=== PATIENT | female | born 1960 | race Caucasian/White ===

== ENCOUNTER 2019-05-28 06:00 | Outpatient (RCR) | payer MEDICARE, MEDICAID, SELFPAY | END 2019-06-27 00:01 | LOC: SPT 06:00 | PROVIDERS: Family Provider Family Medicine; Visit Provider Orthopaedic Surgery | DX: M75.02 Adhesive capsulitis of left shoulder (principal); M25.512 Pain in left shoulder | CPT/HCPCS: 97110 ×2 ==

== ENCOUNTER 2019-06-28 06:00 | Outpatient (RCR) | payer MEDICARE, MEDICAID, SELFPAY | END 2019-07-28 23:59 | disposition home or self-care (01) | LOC: SPT 06:00 | PROVIDERS: Family Provider Family Medicine; PCP Family Medicine; Visit Provider Orthopaedic Surgery | DX: M75.02 Adhesive capsulitis of left shoulder (principal) ==

== ENCOUNTER 2019-07-26 14:41 | Outpatient (CLI) | payer MEDICARE, MEDICAID, SELFPAY ==
--- NOTE | 2019-07-26 | USCV_ITS ---
Jasmin Villalobos Age: 59 Gender: F : 1960 Exam Date: 07/26/2019 15:01 Ordering Phys: Darell Orourke MD Technologist: Christel Bacon [place] [facility] [place]: SY[place] BP: 121 / 71 HR: 81 Rhythm: Other Technical Quality: Adequate MEASUREMENTS (Male / Female) Normal Values 2D ECHO LV Diastolic Diameter PLAX 5.1 cm 4.2 - 5.9 / 3.9 - 5.3 cm LV Systolic Diameter PLAX 3.2 cm LV Chamber Size 4.9 cm IVS Diastolic Thickness 1.1 cm 0.6 - 1.0 / 0.6 - 0.9 cm IVS Systolic Thickness 1.2 cm LVPW Diastolic Thickness 0.9 cm 0.6 - 1.0 / 0.6 - 0.9 cm LVPW Systolic Thickness 1.2 cm RV Chamber Size 3.0 cm LVOT Diameter 2.0 cm LV Ejection Fraction 2D Teich 65.7 % LV Ejection Fraction MOD 2C 42.7 % LV Ejection Fraction 2C AL 43.2 % LA Diameter 3.6 cm LA Width 3.1 cm LA Height 4.7 cm RA Width 2.2 cm RA Height 3.6 cm Aorta at Sinotubular Diameter 3.1 cm M-MODE LV Diastolic Diameter MM 5.5 cm 4.2 - 5.9 / 3.9 - 5.3 cm LV Systolic Diameter MM 4.1 cm LV Ejection Fraction MM Teich 49.1 % IVS Diastolic Thickness MM 1.2 cm 0.6 - 1.0 / 0.6 - 0.9 cm IVS Systolic Thickness MM 1.3 cm LVPW Diastolic Thickness MM 1.0 cm 0.6 - 1.0 / 0.6 - 0.9 cm LVPW Systolic Thickness MM 1.5 cm RV Diastolic Diameter MM 1.4 cm Aortic Annulus Diameter 2.8 cm LA Ao Ratio MM 1.3 MV E Point Septal Separation 0.9 cm DOPPLER AV Peak Velocity 146.0 cm/s LVOT Peak Velocity 102.0 cm/s AV Area Cont Eq vti 2.1 cm squared AV Area Cont Eq pk 2.2 cm squared MV Area PHT 2.6 cm squared Mitral E to A Ratio 0.6 MV E' Velocity 5.0 cm/s Mitral E to MV E' Ratio 10.2 Mitral E to LV E' Lateral Ratio 10.8 Mitral E to LV E' Septal Ratio 9.7 TV Peak E Velocity 54.0 cm/s Right Atrial Pressure 3.0 mmHg PV Peak Velocity 84.0 cm/s FINDINGS Left Ventricle Normal left ventricular size, systolic function and wall thickness, with no regional wall motion abnormalities.left ventricular ejection fraction is estimated at 60 %. Normal diastolic filling pattern. Right Ventricle The right ventricle is normal in size and function. RVSP could not be calculated due to incomplete tricuspid regurgitation velocity profile. Right Atrium The right atrium is normal in size. Left Atrium The left atrium is normal in size. Mitral Valve Structurally normal mitral valve without significant stenosis or prolapse. There is no mitral regurgitation. Aortic Valve Structurally normal aortic valve without significant sclerosis or stenosis. There is no aortic regurgitation. Tricuspid Valve Mild tricuspid valve regurgitation. Pulmonic Valve Structurally normal pulmonic valve without significant stenosis. There is no pulmonic regurgitation. Pericardium Normal pericardium without effusion. Aorta Normal ascending aorta dimension. CONCLUSIONS 1-Normal left ventricular size, systolic function and wall thickness, with no regional wall motion abnormalities.left ventricular ejection fraction is estimated at 60 %. Normal diastolic filling pattern. 2-The right ventricle is normal in size and function. RVSP could not be calculated due to incomplete tricuspid regurgitation velocity profile. 3-Mild tricuspid valve regurgitation. 4-There is no pericardial effusion. 5-There are no prior echocardiogram studies to compare. Vale Herr MD (Electronically Signed) Final Date: 26 July 2019 17:43 S
== END 2019-07-26 14:42 | disposition home or self-care (01) ==
PROVIDERS: Family Provider Family Medicine; PCP Family Medicine; Visit Provider Family Medicine
DX: I07.1 Rheumatic tricuspid insufficiency (principal); R55 Syncope and collapse
CPT/HCPCS: 93306

== ENCOUNTER → 2019-08-02 15:05 | Outpatient (BNVA) | payer MEDICARE, MEDICAID, SELFPAY | PROVIDERS: Family Provider Family Medicine; PCP Family Medicine; Visit Provider Nurse Practitioner | DX: F33.0 Major depressive disorder, recurrent, mild (principal); F43.12 Post-traumatic stress disorder, chronic; F32.9 Major depressive disorder, single episode, unspecified; F17.218 Nicotine dependence, cigarettes, with other nicotine-induced disorders; G47.33 Obstructive sleep apnea (adult) (pediatric) | CPT/HCPCS: 99214 ==

== ENCOUNTER → 2019-09-25 08:13 | Outpatient (BNVA) | payer MEDICARE, MEDICAID, SELFPAY | PROVIDERS: Family Provider Family Medicine; PCP Family Medicine; Visit Provider Nurse Practitioner | DX: G47.33 Obstructive sleep apnea (adult) (pediatric) (principal); F17.218 Nicotine dependence, cigarettes, with other nicotine-induced disorders; F43.12 Post-traumatic stress disorder, chronic; F33.0 Major depressive disorder, recurrent, mild | CPT/HCPCS: 99214 ==

== ENCOUNTER 2019-10-08 17:44 | Emergency (ER) | payer MEDICARE, MEDICAID, SELFPAY ==
[2019-10-08 17:48] VITALS: BP 158/115; PULSE 68; RESP 17; TEMP 36.8; O2SAT 93; BMI 41.1
--- NOTE | 2019-10-08 17:58 | PC.NURSE ---
Charge nurse notified of positive SI screening. I will remain with the patient in triage until she is in a room.
--- NOTE | 2019-10-08 18:22 | XR_ITS ---
WS: [id number] RIBS RIGHT WITH CHEST TECHNIQUE: 3 views of the right ribs with PA chest CLINICAL INFORMATION: fall COMPARISON: None. FINDINGS: Normal cardiac silhouette. Tortuous thoracic aorta. Chronic emphysematous changes. No acute pulmonary infiltrates. Osteopenia. Right ribs appear normal. No definite visualized right rib fractures. Crystal cystectomy clips. XR/XR ribs RT mn 3V w [id number] IMPRESSION: 1. No visualized right rib fractures. 2. Lungs are well aerated. No acute pulmonary infiltrates.
--- NOTE | 2019-10-08 18:22 | XR_ITS ---
WS: [id number] FOOT RIGHT TECHNIQUE: 3 views of the right foot CLINICAL INFORMATION: fall COMPARISON: None. FINDINGS: Osteopenia. Normal metatarsals. Normal TMT joint. Prior postoperative changes plate and screw fixatio n across the distal fibula and lateral malleolus. Screw fixation across the medial malleolus. IP join t narrowing. Plantar calcaneal spurring. Soft tissue edema midfoot and forefoot. XR/XR foot RT min 3V* [id number] IMPRESSION: 1. Osteopenia with midfoot and forefoot soft tissue edema. No visualized acute fractures. 2. Postoperative changes plate and screw fixation distal fibula and lateral ma lleolus. Screw fixation across the medial malleolus.
--- NOTE | 2019-10-08 18:22 | CTR_ITS ---
PROCEDURE INFORMATION: Exam: CT Head Without Contrast Exam date and time: 10/08/2019 8:58 PM Age: 59 years old Clinical indication: Alteration of consciousness; Other: Fall w/ loc; Additional info: Fall, loss of consciousness TECHNIQUE: Imaging protocol: Computed tomography of the head without contrast. Sagittal and coronal reformatted images were created and reviewed. Total DLP: 802.2 mGy-cm Radiation optimization: All CT scans at this facility use at least one of these dose optimization techniques: automated exposure control; mA and/or kV adjustment per patient size (includes targeted exams where dose is matched to clinical indication); or iterative reconstruction. COMPARISON: CT head wo con* [id number] 08/07/2016 10:02 PM FINDINGS: Brain: No acute intracranial hemorrhage. No acute infarct. No intra-axial or extra-axial masses. Palma-white matter differentiation is preserved. No cerebral edema. No extra-axial fluid collections. No midline shift. No evidence for Chiari 1 malformation. Stable mild to moderate atrophy of the right and left frontal lobes. Midline shift: No midline shift. Ventricles: No hydrocephalus. Bones/joints: Mild right nasal septal deviation. Sinuses: Visualized paranasal sinuses are clear. Mastoid air cells: Unremarkable as visualized. Orbits: Globes and lenses, extraocular muscles, and optic nerves are intact bilaterally. No acute intraorbital abnormality. Soft tissues: The extracranial soft tissues are unremarkable. Nasal cavity: Stable nerissa bullosa in the visualized right and left middle turbinates. CT/CT head wo con* [id number] IMPRESSION: 1. No acute abnormality of the brain. 2. Stable mild to moderate atrophy of the right and left frontal lobes. 3. Incidental/nonacute findings are listed in the report. Radiation Dose CTDIVOL = (mGy): DLP = 802.2 (mGy-cm)
[2019-10-08 18:45] LABS: Basophils % 0.6 %; Eosinophils # 0.1 10^3/uL (0.0-0.8); Eosinophils % 2.9 %; Hematocrit 41.1 % (37.0-47.0); Hemoglobin 12.8 g/dL (11.5-15.3); Lymphocytes # 1.3 10^3/uL (0.8-4.8); Mean Corpuscular HGB Conc 31.1 g/dL (30.0-36.0); Mean Corpuscular Volume 86.7 fL (81-99); Mean Platelet Volume 9.9 fL (7.4-10.4); Monocytes # 0.5 10^3/uL (0.2-0.9); Monocytes % 13.2 %; Neutrophils # 1.6 10^3/uL (1.8-7.7); Nucleated Red Blood Cells % 0 %; Platelet Count 173 10^3/cmm (130-400); Red Blood Count 4.74 10^6/uL (4.1-5.3); Red Cell Distribution Width 16.9 % (12.1-15.1); White Blood Count 3.5 10^3/uL (4.0-10.0)
[2019-10-08 19:04] LABS: Alanine Aminotransferase 16 U/L (0-33); Albumin Level 3.9 g/dL (3.5-5.2); Alkaline Phosphatase 48 IU/L (35-105); Anion Gap 15.3 (5-19); Aspartate Amino Transferase 33 U/L (0-32); Blood Urea Nitrogen 11 mg/dL (8-23); Calcium 9.5 mg/dL (8.5-10.5); Carbon Dioxide 29 mmol/L (22-29); Chloride 96 mmol/L (98-107); Globulin 3.1 g/dL (1.3-4.6); Glomerular Filtration Rate 63.9 mL/min (90-130); Glucose 110 mg/dL (65-115); Osmolality Calculated 279 mOsm/kg (285-295); Potassium 4.3 mmol/L (3.5-5.1); Sodium 136 mmol/L (136-145); Total Bilirubin 0.3 mg/dL (0.15-1.2)
[2019-10-08 19:19] VITALS: BP 139/88; PULSE 58; RESP 18; O2SAT 93
[2019-10-08 20:40] VITALS: BP 118/57; PULSE 75; RESP 16; O2SAT 97
--- NOTE | 2019-10-08 21:47 | ED_ITS ---
HPI - Fall General: Chief Complaint: Fall Stated Complaint: fall Time Seen by Provider: 10/08/19 18:10 Source: patient and EMS Mode of arrival: EMS Limitations: no limitations History of Present Illness: HPI Narrative: 59-year-old female patient presents to the emergency department with complaints of fall. She fell 2 days ago, hitting her head and describes a brief period of loss of consciousness. Patient is not on anticoagulation. The patient also endorses the fact that she has been falling fairly frequently for the last year, she states that she has fallen at least 20 times in the last year. Her primary care provider is working her up to discover the cause of her symptoms. So far they have been unsuccessful. The patient also says that she has a history of depression and has been feeling more depressed since the mandatory stay at home order that is in place due to the coronavirus pandemic. It has caused her to feel more depressed, however she denies suicidal ideation, denies homicidal ideation. I asked her repeatedly and she denies any suicidal ideation. She had told the nurse earlier during triage that she was suicidal but she explained to me that she only has thoughts that she would be better off but other than being stuck alone. She has no plans to do it and has no intentions to commit suicide. Her falls are also causing her to be a little more depressed. She denies chest pain, dizziness, shortness of breath. She has no prodrome before the falls. She is unable to tell me why she falls. She has pain on the right side of her head, right side of her body and right foot. complaint: fall Onset (ago): day(s) (2) Fall from: standing Fall witnessed: no Place fall occurred: home Loss of consciousness: Yes Length of LOC: minutes(s) Prolonged down time: no Symptoms prior to fall: none Context: tripped/slipped Associated symptoms-after fall: Reports chest pain; Denies abdominal pain, headache(s) or neck pain Review of Systems General: Reports: 10 or more systems reviewed and unremarkable except in HPI and below Const: Denies: fever, chills or body aches Eyes: Denies: change in vision or blurry vision ENMT: Denies: throat pain, enlarged tonsils, painful swallowing, hoarseness, mouth pain or swelling of lips/tongue Card: Reports: chest pain; Denies: palpitations, irregular heart rhythm, edema or swelling of feet/ankles Resp: Denies: shortness of breath, productive cough or non-productive cough GI: Denies: abdominal pain, nausea or vomiting : Denies: flank pain, difficulty urinating, painful urination, urinary frequency, urinary urgency or urinary hesitancy Musc: Reports: extremity pain and joint pain; Denies: neck pain, back pain, extremity swelling or limited range of motion Skin/Breast: Denies: rash, itching or redness Neuro: Denies: headache, numbness in extremities or weakness in extremities Endo: Denies: excessive urination, excessive thirst or tired all the time PFSH ED PFSH: Medical History (Updated 10/08/19 @ 21:49 by Jovanny Sesay MD, [facility] [place] Major depressive disorder, recurrent, mild Major depressive disorder, single episode, unspecified Nicotine dependence, cigarettes, with other nicotine-induced disorders Obstructive sleep apnea (adult) (pediatric) Post-traumatic stress disorder, chronic Social History Smoking and tobacco status: current every day smoker Physical Exam Const: COMMON NORMALS: no apparent distress, average body habitus, oriented x3, no limitations, healthy appearing, alert and well nourished HENMT: COMMON NORMALS: normocephalic, head/scalp atraumatic and moist oral mucous membranes HEAD & SCALP: normocephalic, atraumatic, scalp tenderness and other (Tenderness in the right parietal region) Eye: COMMON NORMALS: PERRL, EOMs intact bilaterally, conjunctivae normal and no scleral icterus CONJUNCTIVA: Yes conjunctivae normal PUPIL: Yes PERRL Neck/C-Spine: COMMON NORMALS: full ROM, supple, no meningeal signs, no JVD and no carotid bruits Chest: COMMONS NORMALS: inspection of chest normal CHEST: Yes localized rib tenderness with anteroposterior compression (right side) Resp: COMMON NORMALS: normal respiratory effort, no retractions, no use of accessory muscles, clear to auscultation bilaterally and percussion normal AUSCULTATION: clear to auscultation bilaterally PERCUSSION: percussion normal Cardio: COMMON NORMALS: no JVD, regular rate, regular rhythm, S1 normal heart sound, S2 normal heart sound, no gallops, no clicks, no murmurs, no rub and peripheral pulses 2+ throughout RATE: regular rate RHYTHM: regular rhythm HEART SOUNDS: S1 normal and S2 normal PERIPHERAL PULSES: pulses 2+ throughout GI: COMMON NORMALS: normal to inspection, nondistended, normoactive bowel sounds, soft to palpation, non-tender, no hepatosplenomegaly, no masses and no bruits PALPATION: Yes soft and Yes no hepatosplenomegaly : COMMON NORMALS: Yes no CVA tenderness BLADDER/KIDNEY EXAM: Yes no CVA tenderness Back/Pelvis: COMMON NORMALS: no CVA tenderness Extremity: COMMON NORMALS: normal to inspection, full ROM, normal capillary refill, no calf tenderness and no pedal edema RIGHT LOWER EXTREMITY: Yes foot & digits (bruising of the right 3rd and 4th toe with tenderness.) Neuro: COMMON NORMALS: oriented x3 SENSORIUM/ORIENTATION: Yes alert MENINGEAL SIGNS: Yes no meningeal signs Skin: COMMON NORMALS: no rashes or lesions noted, no wounds, skin turgor normal, no jaundice, no petechiae and no mottling GENERAL SKIN EXAM: no rashes or lesions noted and turgor normal Course Vital Signs: Vital signs: Vital Signs Temperature 98.3 F 10/08/19 17:48 Pulse Rate 77 10/08/19 21:52 Respiratory Rate 12 10/08/19 21:52 Blood Pressure 168/88 10/08/19 21:52 Pulse Oximetry 95 10/08/19 21:52 MDM - Fall MDM Narrative: Medical decision making narrative: 59-year-old female patient who presents to the emergency department with a fall that happened 2 days ago. She also had loss of consciousness at the time. Evaluation in the ED was negative for acute findings. She mentioned to the triage nurse that she had thoughts of suicide, but when I spoke to her she was clear that she was not suicidal she was just very depressed at being stuck at home due to the [id number] order. The repeated falls also causing her some frustration. At this time I am not concerned that the patient is suicidal. She is discharged home with no new orders. Medical Records: Attestation: I reviewed the patient's medical records. Lab Data: Labs: Lab Results 10/08/19 10/08/19 Range/Units 18:28 18:28 WBC 3.5 L (4.0-10.0) 10^3/ uL RBC 4.74 (4.1-5.3) 10^6/u L Hgb 12.8 (11.5-15.3) g/dL Hct 41.1 (37.0-47.0) % MCV 86.7 (81-99) fL MCH 27.0 L (28.0-34.0) pg MCHC 31.1 (30.0-36.0) g/dL RDW 16.9 H (12.1-15.1) % Plt Count 173 (130-400) 10^3/c mm MPV 9.9 (7.4-10.4) fL Neut % (Auto) 46.0 % Lymph % (Auto) 37.0 % [place] % (Auto) 13.2 % Eos % (Auto) 2.9 % Baso % (Auto) 0.6 % Neut # (Auto) 1.6 L (1.8-7.7) 10^3/u L Lymph # (Auto) 1.3 (0.8-4.8) 10^3/u L [place] # (Auto) 0.5 (0.2-0.9) 10^3/u L Eos # (Auto) 0.1 (0.0-0.8) 10^3/u L Baso # (Auto) 0.0 (0.0-0.1) 10^3/u L Nucleated RBC % (a uto) 0 % Nucleated RBCs # 0.0 /100WBC Sodium 136 (136-145) mmol/L Potassium 4.3 (3.5-5.1) mmol/L Chloride 96 L (98-107) mmol/L Carbon Dioxide 29 (22-29) mmol/L Anion Gap 15.3 (5-19) BUN 11 (8-23) mg/dL Creatinine 0.9 (0.5-0.9) mg/dL GFR Calculation 63.9 L (90-130) mL/min Glucose 110 (65-115) mg/dL Calculated Osmolal ity 279 L (285-295) mOsm/k g Calcium 9.5 (8.5-10.5) mg/dL Total Bilirubin 0.3 (0.15-1.2) mg/dL AST 33 H (0-32) U/L ALT 16 (0-33) U/L Alkaline Phosphata se 48 (35-105) IU/L Total Protein 7.0 (6.6-8.7) g/dL Albumin 3.9 (3.5-5.2) g/dL Globulin 3.1 (1.3-4.6) g/dL Imaging Data^: CT Head: Radiologist's impression: [facility] [address] [place] [address] CT Scan Report Signed Patient: Jasmin Villalobos #: [id number] : 9Acct#:[id number] Age/Sex: 59 / FADM Date: 10/08/19 Loc: ERRoom/Bed: Attending Dr: Ordering Provider/Ordering MD: Jovanny Sesay MD, [facility] [place] of Service: 10/08/19 Procedure(s): CT head wo con* [id number] Accession Number(s): [id number] Report Number: [id number] PROCEDURE INFORMATION: Exam: CT Head Without Contrast Exam date and time: 10/08/2019 8:58 PM Age: 59 years old Clinical indication: Alteration of consciousness; Other: Fall w/ loc; Additional info: Fall, loss of consciousness TECHNIQUE: Imaging protocol: Computed tomography of the head without contrast. Sagittal and coronal reformatted images were created and reviewed. Total DLP: 802.2 mGy-cm Radiation optimization: All CT scans at this facility use at least one of these dose optimization techniques: automated exposure control; mA and/or kV adjustment per patient size (includes targeted exams where dose is matched to clinical indication); or iterative reconstruction. COMPARISON: CT head wo con* [id number] 08/07/2016 10:02 PM FINDINGS: Brain: No acute intracranial hemorrhage. No acute infarct. No intra-axial or extra-axial masses. Palma-white matter differentiation is preserved. No cerebral edema. No extra-axial fluid collections. No midline shift. No evidence for Chiari 1 malformation. Stable mild to moderate atrophy of the right and left frontal lobes. Midline shift: No midline shift. Ventricles: No hydrocephalus. Bones/joints: Mild right nasal septal deviation. Sinuses: Visualized paranasal sinuses are clear. Mastoid air cells: Unremarkable as visualized. Orbits: Globes and lenses, extraocular muscles, and optic nerves are intact bilaterally. No acute intraorbital abnormality. Soft tissues: The extracranial soft tissues are unremarkable. Nasal cavity: Stable nerissa bullosa in the visualized right and left middle turbinates. CT/CT head wo con* [id number] IMPRESSION: 1. No acute abnormality of the brain. 2. Stable mild to moderate atrophy of the right and left frontal lobes. 3. Incidental/nonacute findings are listed in the report. Radiation Dose CTDIVOL = (mGy): DLP = 802.2 (mGy-cm) Dictated By:Yolette Araya MD Signed By:Yolette Araya MDSigned Date/Time:10/08/192120 DD/ 18 Xray Ortho: Attestation: I personally reviewed and interpreted this imaging study as follows: My impression: X-ray right foot negative for fracture or dislocation. X-ray ribs negative for acute fracture. Discharge Plan Discharge Patient Disposition: Home, Self-Care Clinical Impression: Repeated falls, Musculoskeletal pain, Major depressive disorder, recurrent, mild Condition: Stable Prescriptions: Continued trazodone 50 mg tablet 50 mg PO .QHS PRN (Reason: sleep) Qty: 60 RF: 1 levothyroxine [Synthroid] 50 mcg tablet 50 mcg PO QAM Qty: 30 RF: 1 fluoxetine [Prozac] 20 mg capsule 20 mg PO DAILY Qty: 30 RF: 1 fluoxetine 40 mg capsule 80 mg PO DAILY Qty: 60 RF: 1 divalproex [Depakote] 500 mg tablet,delayed release (DR/EC) 500 mg PO BID Qty: 60 RF: 1 zolpidem [Ambien] 10 mg tablet 10 mg PO .QHS Qty: 30 RF: 1 Discharge Orders: Discharge Order (Routine); Ordered 10/08/19 Ordered By: Jovanny Sesay Referrals: Darell Orourke MD [Primary Care Provider] - 7-10 days Discharge Diet: Usual diet Discharge Activity: Increase activity as tolerated Patient Instructions: Fall Prevention for Older Adults (ED) Activity Restrictions/Additional Instructions: Return for any new or worsening symptoms. Take Tylenol or ibuprofen as needed for pain. Follow-up with your primary care provider within 1 week. Discharge Date/Time: 10/08/19 22:01 Coding Level of Care Code ED Medical Program Specialist for Susan Sanz
[2019-10-08 21:52] VITALS: BP 168/88; PULSE 77; RESP 12; O2SAT 95
== END 2019-10-08 22:01 | disposition home or self-care (01) ==
PROVIDERS: Emergency Provider Family Medicine; Family Provider Family Medicine; PCP Family Medicine
DX: R29.6 Repeated falls (principal); M79.18 Myalgia, other site; F33.0 Major depressive disorder, recurrent, mild; F17.200 Nicotine dependence, unspecified, uncomplicated; G47.33 Obstructive sleep apnea (adult) (pediatric); F43.12 Post-traumatic stress disorder, chronic
CPT/HCPCS: 12345; 70450; 71101; 73630; 80053; 85025; 99281; 99283

== ENCOUNTER → 2019-11-30 07:41 | Outpatient (BNVA) | payer MEDICARE, MEDICAID, SELFPAY | PROVIDERS: Family Provider Family Medicine; PCP Family Medicine; Visit Provider Nurse Practitioner | DX: F33.0 Major depressive disorder, recurrent, mild (principal); F43.12 Post-traumatic stress disorder, chronic; F17.218 Nicotine dependence, cigarettes, with other nicotine-induced disorders; G47.33 Obstructive sleep apnea (adult) (pediatric) | CPT/HCPCS: 99214 ==

== ENCOUNTER 2019-12-07 12:49 | Outpatient (CLI) | payer MEDICARE, MEDICAID, SELFPAY ==
--- NOTE | 2019-12-07 13:04 | CT_ITS ---
WS: [id number] CT ABDOMEN PELVIS TECHNIQUE: Contrast-enhanced CT of the abdomen and pelvis with coronal and sagittal reformatted image s. CLINICAL INFORMATION: LLQ ABDOMINAL PAIN COMPARISON: CTA June 16, 2018 DLP: [address]1.[address] scans at [facility] use at least one of these dose optimization techniques: automat ed exposure control; mA and/or kV adjustment per patient size (includes targeted exams where dose is matched to clinical indication); or iterative reconstruction. FINDINGS: Mild diffuse fatty infiltration liver. Cholecystectomy clips. Normal portal vein and splenic vein. Sp lenic granulomas. Mild fatty atrophy of the pancreas. Small esophageal hiatal hernia. Lung bases are well aerated. Slight subsegmental atelectasis right lower lobe. Adrenal glands are normal. Normal keegan al parenchymal enhancement. Mild renal cortical atrophy. No hydronephrosis. Normal caliber abdominal aorta. Mild aortic calcification. Normal sigmoid colon. No abdominal lymphadenopathy. No inguinal lymphadenopathy. No free fluid in the pelvis. Prior hysterectomy. Disc space narrowing worse L4-5 and L5-S1. CT/CT abdomen pelvis w con* [id number] IMPRESSION: 1. Prior cholecystectomy and hysterectomy. 2. Small esophageal hiatal hernia. 3. Subsegmental atelectasis right lower lobe. 4. Normal caliber abdominal aorta. 5. No free fluid in the abdomen or pelvis. 6. Normal sigmoid colon. 7. No acute abdominal or pelvic findings.
[2019-12-07] MEDS: iohexol 300 mg/mL 100 mL Btl IV (14:09)
== END 2019-12-07 12:50 | disposition home or self-care (01) ==
LOC: RADWPI 12:53
PROVIDERS: Family Provider Family Medicine; PCP Family Medicine; Visit Provider Family Medicine
DX: R10.32 Left lower quadrant pain (principal); K44.9 Diaphragmatic hernia without obstruction or gangrene; Z90.49 Acquired absence of other specified parts of digestive tract; J98.11 Atelectasis
CPT/HCPCS: 74177; Q9967

== ENCOUNTER 2019-12-13 13:24 | Outpatient (CLI) | payer MEDICARE, MEDICAID, SELFPAY ==
--- NOTE | 2019-12-13 13:32 | USCV_ITS ---
Jasmin Villalobos Age: 59 Gender: F : 1960 Exam Date: 12/13/2019 13:52 Ordering Phys: Darell Orourke MD Technologist: Rosina Medellin Exam Location[place] [facility] [place] Indication: SWELLING HISTORY: Lower extremity swelling. PROCEDURES: Venous duplex imaging was performed in only the left lower extremity. The following venous structures were evaluated: common femoral vein, profunda vein, proximal portion of the greater saphenous vein, superficial femoral vein, and the popliteal vein. In addition, the posterior tibial and peroneal trunk were evaluated. Serial compression, augmentation maneuvers, and spectral Doppler flow evaluation were performed. FINDINGS: Normal 2-D Doppler and augmentation and compressibility throughout the lower extremity venous structures. Additional imaging through the proximal calf veins also reveals no thrombus. Limited evaluation of the greater saphenous vein is patent with no thrombus.. CONCLUSIONS No evidence of DVT in the above-mentioned identifiable veins. Dr Marie Flores MD [facility] (Electronically Signed) Final Date: 14 December 2019 08:55 S DIDIER
== END 2019-12-13 13:25 | disposition home or self-care (01) ==
LOC: RAD 13:28
PROVIDERS: PCP Family Medicine; Visit Provider Family Medicine
DX: M79.89 Other specified soft tissue disorders (principal)
CPT/HCPCS: 93971

== ENCOUNTER → 2020-01-03 07:36 | Outpatient (BNVA) | payer MEDICARE, MEDICAID, SELFPAY | PROVIDERS: Family Provider Family Medicine; PCP Family Medicine; Visit Provider Nurse Practitioner | DX: F33.0 Major depressive disorder, recurrent, mild (principal); F43.12 Post-traumatic stress disorder, chronic; F17.218 Nicotine dependence, cigarettes, with other nicotine-induced disorders; G47.33 Obstructive sleep apnea (adult) (pediatric) | CPT/HCPCS: 99214 ==

== ENCOUNTER 2020-02-05 18:34 | Emergency (ER) | payer MEDICARE, MEDICAID, SELFPAY ==
[2020-02-05 18:48] VITALS: BP 152/88; PULSE 63; RESP 20; TEMP 36.7; O2SAT 94; BMI 39.4
[2020-02-05 19:18] LABS: Basophils % 0.6 %; Eosinophils # 0.1 10^3/uL (0.0-0.8); Eosinophils % 2.7 %; Hematocrit 36.8 % (37.0-47.0); Hemoglobin 11.5 g/dL (11.5-15.3); Lymphocytes # 1.8 10^3/uL (0.8-4.8); Lymphocytes % 34.9 %; Mean Corpuscular HGB Conc 31.3 g/dL (30.0-36.0); Mean Corpuscular Hemoglobin 27.1 pg (28.0-34.0); Mean Corpuscular Volume 86.8 fL (81-99); Mean Platelet Volume 9.8 fL (7.4-10.4); Monocytes # 0.5 10^3/uL (0.2-0.9); Neutrophils # 2.69 10^3/uL (1.8-7.7); Neutrophils % 52.4 %; Nucleated Red Blood Cells % 0 %; Platelet Count 238 10^3/cmm (130-400); Red Blood Count 4.24 10^6/uL (4.1-5.3); Red Cell Distribution Width 15.3 % (12.1-15.1); White Blood Count 5.1 10^3/uL (4.0-10.0)
[2020-02-05 19:43] LABS: Alanine Aminotransferase 10 U/L (0-33); Albumin Level 3.9 g/dL (3.5-5.2); Alkaline Phosphatase 53 IU/L (35-105); Anion Gap 11.3 (5-19); Aspartate Amino Transferase 16 U/L (0-32); Blood Urea Nitrogen 11 mg/dL (8-23); Calcium 9.2 mg/dL (8.5-10.5); Carbon Dioxide 31 mmol/L (22-29); Chloride 100 mmol/L (98-107); Globulin 2.6 g/dL (1.3-4.6); Glomerular Filtration Rate 85.1 mL/min (90-130); Glucose 99 mg/dL (65-115); Osmolality Calculated 282 mOsm/kg (285-295); Potassium 4.3 mmol/L (3.5-5.1); Sodium 138 mmol/L (136-145); Total Bilirubin 0.3 mg/dL (0.15-1.2); Total Protein 6.5 g/dL (6.6-8.7)
--- NOTE | 2020-02-05 20:05 | W.ED.GENADLT ---
HPI - General Adult General: Chief complaint: General Medical Stated complaint: doesnt feel well Time Seen by Provider: 02/05/20 19:48 Source: patient Mode of arrival: ambulatory Limitations: no limitations History of Present Illness: HPI narrative: Patient is a 60-year-old female who presents to the emergency department today with multiple medical complaints. Patient tells me that she feels like crap . She is complaining of a headache. She states she does have a history of migraines. She reports her last migraine was a few months ago. She used to take Depakote for her migraines however is no longer taking this. She states her headache today feels similar to migraines she has had previously. She is complaining of neck pain. When asked patient tells me she does suffer from chronic neck pain. She is complaining of lower back pain. Again this seems to be chronic. She takes oxycodone for this. Patient complains of right jaw pain. She states pain is worse with chewing. She is complaining of left leg and hip pain. She has had this pain for several months and has been followed up by her PCP Dr. Orourke for this. She is complaining of body aches. When asked she does report a history of fibromyalgia and states this often presents with diffuse body aches. She has not been running fevers. No sick contacts. No new medications. Relieving factors: none Exacerbating factors: none Associated symptoms: Reports headache(s); Deny chest pain, dyspnea, nausea, rash, palpitations, syncope or vomiting Review of Systems Const: Reports: body aches and fatigue; Denies: fever(s), chills or night sweats Eyes: Denies: change in vision, blurry vision, photophobia, floaters or seeing flashes ENMT: Reports: other (jaw pain); Denies: odynophagia, oral sores, dental pain, ear or mastoid pain, ear discharge, change in hearing, tinnitus, disequilibrium, nasal discharge, nasal congestion or sinus pain Card: Denies: chest pain, palpitations, irregular heart rhythm, edema, lightheadedness, syncope, pre-syncope or dyspnea on exertion Resp: Denies: dyspnea, productive cough, non-productive cough, hemoptysis or chest congestion GI: Denies: abdominal pain, nausea, vomiting, diarrhea or change in bowel habits : Denies: flank pain, difficulty voiding, dysuria, urinary frequency or urinary urgency Musc: Reports: neck pain and back pain; Denies: joint redness or joint warmth Skin/Breast: Denies: rash Neuro: Reports: headache(s); Denies: numbness in extremities, weakness in extremities, sensory changes, lack of coordination, frequent falls, dizziness or Slurred speech present PFSH ED PFSH: Medical History (Updated 02/05/20 @ 21:17 by JOSÉ Dixon) Major depressive disorder, recurrent, mild Major depressive disorder, single episode, unspecified Nicotine dependence, cigarettes, with other nicotine-induced disorders Obstructive sleep apnea (adult) (pediatric) Post-traumatic stress disorder, chronic Social History Smoking and tobacco status: current every day smoker Physical Exam Const: COMMON NORMALS: no acute distress, patient oriented x3, no limitations and alert NUTRITIONAL APPEARANCE: obese ORIENTATION/CONSCIOUSNESS: Yes oriented to person, Yes oriented to place and Yes oriented to time HENMT: COMMON NORMALS: normocephalic, atraumatic, hearing grossly normal bilaterally, external ears normal, EAC's normal, TM's normal bilaterally, Normal external nose present, Normal nasal mucous membranes and turbinates present, moist oral mucous membranes, oropharynx normal and gingiva normal HEAD & SCALP: normal to inspection, normocephalic and atraumatic FACE & SINUS: normal facial exam and sinuses nontender NOSE: Normal external nose present and Normal nasal mucous membranes and turbinates present EXTERNAL EAR: Yes external ears normal EXTERNAL AUDITORY CANAL: EAC's normal TYMPANIC MEMBRANE: TM's normal bilaterally MOUTH: Normal oral and palatal mucosa present, lip normal and tongue normal TEETH & GINGIVA: Yes edentulous (top) THROAT: posterior oropharynx normal, tonsils normal and uvula midline Eye: COMMON NORMALS: Equal, round and reactive pupils present, EOMs intact bilaterally, conjunctivae normal and no scleral icterus GENERAL EYE: appearance normal, both eyes and all related structures CONJUNCTIVA: Yes conjunctivae normal PUPIL: Yes Equal, round and reactive pupils present Neck/C-Spine: COMMON NORMALS: full ROM, no lymphadenopathy and no meningeal signs Chest: COMMONS NORMALS: normal inspection of the chest and normal palpation of entire chest wall Resp: COMMON NORMALS: normal respiratory effort and clear to auscultation bilaterally AUSCULTATION: clear to auscultation bilaterally Cardio: COMMON NORMALS: regular rate and regular rhythm RATE: regular rate RHYTHM: regular rhythm GI: COMMON NORMALS: Normal to inspection, nondistended, normoactive bowel sounds present, Soft to palpation, non-tender, No hepatosplenomegaly present and no masses PALPATION: Yes Soft to palpation and Yes No hepatosplenomegaly present Back/Pelvis: THORACIC SPINE/UPPER BACK: Yes normal to inspection LUMBAR SPINE/LOWER BACK: Yes lumbar spinal tenderness (chronic lower back pain) Neuro: BRIAN COMA SCALE: document GCS findings Brian coma scale eye opening: Spontaneous [place] coma scale verbal response: Orientated [place] coma scale motor response: Obey commands [place] coma scale total score: 15 COMMON NORMALS: patient oriented x3, CN's II-XII intact bilaterally, moves all extremities, no focal motor deficits, no sensory deficits noted and gait normal SENSORIUM/ORIENTATION: Yes alert, Yes oriented to person, Yes oriented to place and Yes oriented to time MENINGEAL SIGNS: Yes no meningeal signs Skin: COMMON NORMALS: no rashes or lesions noted GENERAL SKIN EXAM: no rashes or lesions noted Course Vital Signs: Vital signs: Vital Signs Temperature 98.1 F 02/05/20 18:48 Pulse Rate 62 02/05/20 20:35 Respiratory Rate 16 02/05/20 20:35 Blood Pressure 183/111 02/05/20 20:35 Pulse Oximetry 97 02/05/20 20:35 MDM - General Adult MDM Narrative: Medical decision making narrative: Patient here with multiple medical complaints the most of which seem chronic in nature. She does report her headache is vastly improved with medications given here. Basic labs are non-concerning at this time. Her vital signs are stable. Recommend she follow-up with primary care for further evaluation. Lab Data: Labs: Lab Results 02/05/20 02/05/20 02/05/20 Range/Units 19:00 19:00 20:40 WBC 5.1 (4.0-10.0) 10^3/ uL RBC 4.24 (4.1-5.3) 10^6/u L Hgb 11.5 (11.5-15.3) g/dL Hct 36.8 L (37.0-47.0) % MCV 86.8 (81-99) fL MCH 27.1 L (28.0-34.0) pg MCHC 31.3 (30.0-36.0) g/dL RDW 15.3 H (12.1-15.1) % Plt Count 238 (130-400) 10^3/c mm MPV 9.8 (7.4-10.4) fL Neut % (Auto) 52.4 % Lymph % (Auto) 34.9 % [place]oshone % (Auto) 9.0 % Eos % (Auto) 2.7 % Baso % (Auto) 0.6 % Neut # (Auto) 2.69 (1.8-7.7) 10^3/u L Lymph # (Auto) 1.8 (0.8-4.8) 10^3/u L [place]oshone # (Auto) 0.5 (0.2-0.9) 10^3/u L Eos # (Auto) 0.1 (0.0-0.8) 10^3/u L Baso # (Auto) 0.0 (0.0-0.1) 10^3/u L Nucleated RBC % (a uto) 0 % Nucleated RBCs # 0.0 /100WBC Sodium 138 (136-145) mmol/L Potassium 4.3 (3.5-5.1) mmol/L Chloride 100 (98-107) mmol/L Carbon Dioxide 31 H (22-29) mmol/L Anion Gap 11.3 (5-19) BUN 11 (8-23) mg/dL Creatinine 0.7 (0.5-0.9) mg/dL GFR Calculation 85.1 L (90-130) mL/min Glucose 99 (65-115) mg/dL Calculated Osmolal ity 282 L (285-295) mOsm/k g Calcium 9.2 (8.5-10.5) mg/dL Total Bilirubin 0.3 (0.15-1.2) mg/dL AST 16 (0-32) U/L ALT 10 (0-33) U/L Alkaline Phosphata se 53 (35-105) IU/L Total Protein 6.5 L (6.6-8.7) g/dL Albumin 3.9 (3.5-5.2) g/dL Globulin 2.6 (1.3-4.6) g/dL Urine Color Yellow (Yellow) Urine Appearance Clear (CLEAR) Urine pH 7 (5-7) Ur Specific Gravit y 1.015 (1.005-1.030) Urine Protein Neg (Negative) Urine Glucose (UA) Norm (Normal) Urine Ketones Negative (Negative) Urine Blood Neg (Negative) Urine Nitrate Negative (Negative) Urine Bilirubin Neg (NEGATIVE) Urine Urobilinogen Norm (Negative) mg/dL Ur Leukocyte Stephanie ase Negative (Negative) Discharge Plan Discharge Patient Disposition: Home Clinical Impression: Fibromyalgia Migraine Qualifiers: Migraine type: without aura Status migrainosus presence: with status migrainosus Intractability: not intractable Qualified Code(s): G43.001 - Migraine without aura, not intractable, with status migrainosus Chronic pain Qualifiers: Chronic pain type: chronic pain syndrome Qualified Code(s): G89.4 - Chronic pain syndrome Condition: Stable Prescriptions: No Action divalproex [Depakote] 500 mg tablet,delayed release (DR/EC) 500 mg PO BID Qty: 60 RF: 1 fluoxetine 40 mg capsule 80 mg PO DAILY Qty: 60 RF: 1 fluoxetine [Prozac] 20 mg capsule 20 mg PO DAILY Qty: 30 RF: 1 levothyroxine [Synthroid] 50 mcg tablet 50 mcg PO QAM Qty: 30 RF: 1 zolpidem [Ambien] 5 mg tablet 5 mg PO .HS Qty: 30 RF: 1 trazodone 100 mg tablet 200 mg PO .HS Qty: 180 RF: 0 carvedilol 12.5 mg tablet 12.5 mg PO BID RF: 0 potassium chloride 10 mEq tablet extended release 10 meq PO DAILY RF: 0 furosemide 20 mg tablet 20 mg PO DAILY RF: 0 oxycodone 5 mg tablet 5 mg PO Q6H PRN (Reason: Pain) RF: 0 Vitamin D3 50 mcg (2,000 unit) Tablet 50 mcg PO DAILY RF: 0 Fish Oil 300-1,000 mg Capsule 1 cap PO DAILY RF: 0 Discharge Orders: Discharge Order (Routine); Ordered 02/05/20 Ordered By: Debra Leon Referrals: Darell Orourke MD [Primary Care Provider] - Activity Restrictions/Additional Instructions: As discussed please followup with your primary care provider as needed. Discharge Date/Time: 02/05/20 21:43 Coding Level of Care Code ED Manufacturing Engineer Chief for Chg Fwd Exam Comprehensive
[2020-02-05] MEDS: ondansetron 2 mg/ML SDV 2 mL 4 MG IVP (20:20)
[2020-02-05] MEDS: ketorolac 30 mg/mL INJ IVP (20:21)
[2020-02-05] MEDS: dexamethasone 10 mg/mL INJ 8 MG IV (20:21)
[2020-02-05] MEDS: sodium chloride 0.9% 1,000 ML 999 ML IV (20:22)
[2020-02-05 20:35] VITALS: BP 183/111; PULSE 62; RESP 16; O2SAT 97
[2020-02-05 20:59] LABS: Add Urine Microscopic? NO
[2020-02-05 21:15] LABS: Bilirubin Urine Neg (NEGATIVE); Blood Urine Neg (Negative); Glucose Urine UA Norm (Normal); Ketones Urine Negative (Negative); Leukocyte Esterase Urine Negative (Negative); Nitrate Urine Negative (Negative); Protein Urine Neg (Negative); Specific Gravity, Urine 1.015 (1.005-1.030); Urine Appearance Clear (CLEAR); Urine Color Yellow (Yellow); Urobilinogen Urine Norm (Negative); pH Urine 7 (5-7)
== END 2020-02-05 21:43 | disposition home or self-care (01) ==
PROVIDERS: Emergency Medicine; Emergency Provider Physician Assistant; PCP Family Medicine
DX: G43.001 Migraine without aura, not intractable, with status migrainosus (principal); G89.4 Chronic pain syndrome; M79.7 Fibromyalgia; F17.210 Nicotine dependence, cigarettes, uncomplicated
CPT/HCPCS: 12345; 36415; 80053; 81003; 85025; 96361; 96374; 96375; 99283; J1100; J1885; J2405; J7030

== ENCOUNTER → 2020-02-13 08:32 | Outpatient (BNVA) | payer MEDICARE, MEDICAID, SELFPAY | PROVIDERS: PCP Family Medicine; Visit Provider Nurse Practitioner | DX: F33.0 Major depressive disorder, recurrent, mild (principal); F43.12 Post-traumatic stress disorder, chronic | CPT/HCPCS: 99214 ==

== ENCOUNTER → 2020-02-19 11:21 | Outpatient (BNVA) | payer MEDICARE, MEDICAID, SELFPAY | PROVIDERS: PCP Family Medicine; Referring Provider Family Medicine; Visit Provider Nurse Practitioner Family | DX: N39.0 Urinary tract infection, site not specified (principal); R35.0 Frequency of micturition; F17.210 Nicotine dependence, cigarettes, uncomplicated | CPT/HCPCS: 80053; 81001 ==

== ENCOUNTER 2020-02-28 14:42 | Outpatient (CLI) | payer MEDICARE, MEDICAID, SELFPAY ==
--- NOTE | 2020-02-28 14:57 | XRR_ITS ---
PROCEDURE INFORMATION: Exam: XR Left Hip with Pelvis when Performed Exam date and time: 02/28/2020 3:11 PM Age: 60 years old Clinical indication: Patient HX: C/O left hip pain. No injury; Additional info: L hip pain TECHNIQUE: Imaging protocol: XR Left hip with pelvis when performed. Views: 2 or 3 views. COMPARISON: CT abdomen pelvis w con* [id number] 12/07/2019 2:08 PM FINDINGS: Bones/joints: Unremarkable. No acute fracture. Soft tissues: Unremarkable. XR/XR hip LT 2-3V wo/w pel* [id number] IMPRESSION: No acute findings.
== END 2020-02-28 14:43 | disposition home or self-care (01) ==
LOC: RAD 14:50
PROVIDERS: PCP Family Medicine; Visit Provider Family Medicine
DX: M25.552 Pain in left hip (principal)
CPT/HCPCS: 73502

== ENCOUNTER → 2020-03-26 07:45 | Outpatient (BNVA) | payer MEDICARE, MEDICAID, SELFPAY | PROVIDERS: PCP Family Medicine; Visit Provider Nurse Practitioner | DX: F33.0 Major depressive disorder, recurrent, mild (principal); F43.12 Post-traumatic stress disorder, chronic | CPT/HCPCS: 99214 ==

== ENCOUNTER → 2020-04-03 14:21 | Outpatient (BNVA) | payer MEDICARE, MEDICAID, SELFPAY | PROVIDERS: PCP Family Medicine; Visit Provider Urology | DX: N30.80 Other cystitis without hematuria (principal) | CPT/HCPCS: 81001 ==

== ENCOUNTER → 2020-05-14 08:19 | Outpatient (BNVA) | payer MEDICARE, MEDICAID, SELFPAY | PROVIDERS: PCP Family Medicine; Visit Provider Nurse Practitioner Psychiatric/Mental Health | DX: F43.12 Post-traumatic stress disorder, chronic (principal); F33.1 Major depressive disorder, recurrent, moderate; F17.218 Nicotine dependence, cigarettes, with other nicotine-induced disorders | CPT/HCPCS: 99212 ==

== ENCOUNTER → 2020-05-15 08:32 | Outpatient (BNVA) | payer MEDICARE, MEDICAID, SELFPAY | PROVIDERS: PCP Family Medicine; Visit Provider Nurse Practitioner Family | DX: N30.80 Other cystitis without hematuria (principal) | CPT/HCPCS: 81003 ==

== ENCOUNTER → 2020-06-11 09:17 | Outpatient (BNVA) | payer MEDICARE, MEDICAID, SELFPAY | PROVIDERS: PCP Family Medicine; Visit Provider Nurse Practitioner Psychiatric/Mental Health | DX: F43.12 Post-traumatic stress disorder, chronic (principal); F17.218 Nicotine dependence, cigarettes, with other nicotine-induced disorders; F33.1 Major depressive disorder, recurrent, moderate | CPT/HCPCS: 99212 ==

== ENCOUNTER → 2020-06-24 14:39 | Outpatient (BNVA) | payer MEDICARE, MEDICAID, SELFPAY | PROVIDERS: PCP Family Medicine; Visit Provider Family Medicine | DX: Z20.828 Contact with and (suspected) exposure to other viral communicable diseases (principal) | CPT/HCPCS: 87635 ==

== ENCOUNTER → 2020-07-18 09:33 | Outpatient (BNVA) | payer MEDICARE, MEDICAID, SELFPAY | PROVIDERS: PCP Family Medicine; Visit Provider Nurse Practitioner Family | DX: N39.0 Urinary tract infection, site not specified (principal) | CPT/HCPCS: 81003 ==

== ENCOUNTER → 2020-07-30 09:25 | Outpatient (BNVA) | payer MEDICARE, MEDICAID, SELFPAY | PROVIDERS: PCP Family Medicine; Visit Provider Nurse Practitioner Psychiatric/Mental Health | DX: F43.12 Post-traumatic stress disorder, chronic (principal); F17.218 Nicotine dependence, cigarettes, with other nicotine-induced disorders; F33.1 Major depressive disorder, recurrent, moderate | CPT/HCPCS: 99214 ==

== ENCOUNTER → 2020-09-05 13:06 | Outpatient (BNVA) | payer MEDICARE, MEDICAID, SELFPAY | PROVIDERS: PCP Family Medicine; Visit Provider Urology | DX: N39.0 Urinary tract infection, site not specified (principal); F33.0 Major depressive disorder, recurrent, mild; N94.9 Unspecified condition associated with female genital organs and menstrual cycle | CPT/HCPCS: 81003 ==

== ENCOUNTER → 2020-09-10 07:46 | Outpatient (BNVA) | payer MEDICARE, MEDICAID, SELFPAY | PROVIDERS: PCP Family Medicine; Visit Provider Nurse Practitioner Psychiatric/Mental Health | DX: F43.12 Post-traumatic stress disorder, chronic (principal); F17.218 Nicotine dependence, cigarettes, with other nicotine-induced disorders; F33.1 Major depressive disorder, recurrent, moderate | CPT/HCPCS: 99214 ==

== ENCOUNTER 2020-10-30 14:26 | Outpatient (CLI) | payer MEDICARE, MEDICAID, SELFPAY ==
--- NOTE | 2020-10-30 14:35 | USCV_ITS ---
Wilfredo Jasmin Age: 60 Gender: F : 1960 Exam Date: 10/30/2020 15:00 Ordering Phys: Darell Orourke MD Technologist: Diane Lopez [place] [facility] [place]: SUDDEN ONSET TENDERNESS OF LT MEDIAL LOWER LEG HISTORY: Sudden tenderness of lt medial lower leg PROCEDURES: Venous duplex imaging was performed in only the left lower extremity. The following venous structures were evaluated: common femoral vein, profunda vein, proximal portion of the greater saphenous vein, superficial femoral vein, and the popliteal vein. In addition, the posterior tibial and peroneal trunk were evaluated. Serial compression, augmentation maneuvers, and spectral Doppler flow evaluation were performed. FINDINGS: No DVT seen in any vessel examined CONCLUSIONS No evidence of left lower extremity DVT. Jelani Lehman MD (Electronically Signed) Final Date: 30 Oct 2020 17:03 S
--- NOTE | 2020-10-30 14:35 | XR_ITS ---
WS: [id number] Chest 2 views, 10/30/2020 Clinical Data: COUGH Comparison: PA chest, 10/08/2019. Findings: No nodules, masses or effusions are seen. The heart is normal. The pulmonary vascularity is not increased. No pneumonia or pneumothorax is seen. The aortic arch and descending aorta are tortuo us. XR/XR chest 2V* [id number] Impression: Atherosclerosis.
== END 2020-10-30 14:27 | disposition home or self-care (01) ==
LOC: RAD 14:30
PROVIDERS: PCP Family Medicine; Visit Provider Family Medicine
DX: M79.89 Other specified soft tissue disorders (principal); R05 Cough; I70.90 Unspecified atherosclerosis
CPT/HCPCS: 71046; 93971

== ENCOUNTER → 2020-11-05 08:23 | Outpatient (BNVA) | payer MEDICARE, MEDICAID, SELFPAY | PROVIDERS: PCP Family Medicine; Visit Provider Nurse Practitioner Psychiatric/Mental Health | DX: F43.12 Post-traumatic stress disorder, chronic (principal); F17.218 Nicotine dependence, cigarettes, with other nicotine-induced disorders; F33.1 Major depressive disorder, recurrent, moderate; F41.1 Generalized anxiety disorder | CPT/HCPCS: 99213 ==

== ENCOUNTER → 2020-11-06 13:30 | Outpatient (BNVA) | payer MEDICARE, MEDICAID, SELFPAY | PROVIDERS: PCP Family Medicine; Visit Provider Urology | DX: N30.80 Other cystitis without hematuria (principal); R39.15 Urgency of urination; F17.210 Nicotine dependence, cigarettes, uncomplicated | CPT/HCPCS: 81003 ==

== ENCOUNTER 2020-12-13 11:24 | Emergency (ER) | payer MEDICARE, MEDICAID, SELFPAY ==
[2020-12-13 11:26] VITALS: BP 137/82; PULSE 68; RESP 24; TEMP 36.8; O2SAT 90; BMI 42.9
--- NOTE | 2020-12-13 11:43 | XRR_ITS ---
PROCEDURE INFORMATION: Exam: XR Chest Exam date and time: 12/13/2020 11:43 AM Age: 60 years old Clinical indication: Shortness of breath; Patient HX: SOB, cough, feet swelling x2 months TECHNIQUE: Imaging protocol: XR of the chest. Views: 1 view. COMPARISON: CR XR chest 2V* [id number] 10/30/2020 2:44 PM FINDINGS: Lungs: Unremarkable. No consolidation. Pleural spaces: Unremarkable. No pleural effusion. No pneumothorax. Heart/Mediastinum: Unremarkable. No cardiomegaly. Bones/joints: Unremarkable. XR/XR chest 1V portable [id number] IMPRESSION: No significant abnormality.
--- NOTE | 2020-12-13 11:44 | ECG_ITS ---
[facility] Test Date: 2020-12-13 Pat Name: Jasmin Villalobos Department: Room: Gender: Female Ms Access Database Developer: : 1960 Requested By: Jovanny Sesay I Order Number: [id number] Britney MD: Pushpa Guy M.D. Measurements Intervals [place] Rate: 58 P: 55 OH: 174 QRS: 43 QRSD: 93 T: 147 QT: 430 QTc: 425 Interpretive Statements SINUS BRADYCARDIA LOW QRS VOLTAGE IN PRECORDIAL LEADS [QRS DEFLECTION < 1.0 mV IN CHEST LEADS] ST DEVIATION AND MODERATE T-WAVE ABNORMALITY, CONSIDER ANTEROLATERAL ISCHEMIA [-0.1+ mV T WAVE IN V3-V6] Compared to ECG 08/07/2016 23:29:49 Low QRS voltage now present Sinus rhythm no longer present T-wave abnormality still present Possible ischemia still present Electronically Signed On 12-13-2020 22:24:01 CDT by Pushpa Guy M.D. [id number]
--- NOTE | 2020-12-13 11:45 | ED_ITS ---
HPI - SOB/Dyspnea General: Chief Complaint: Shortness of Breath/Dyspnea Stated Complaint: FEET SWOLLEN Time Seen by Provider: 12/13/20 11:36 Source: patient Mode of arrival: ambulatory Limitations: no limitations History of Present Illness: HPI Narrative: Patient is a 60-year-old female with a history of sleep apnea, cigarette smoking, COPD, who presents to the emergency department with progressive leg swelling of about 2 months duration. She states that she has been placed on furosemide by her primary care provider and it did not help much so her dose was doubled. She has still not received any significant improvement. She also has associated shortness of breath and orthopnea and dyspnea on exertion. She therefore is here to be evaluated for this. In the triage room she was mildly hypoxic with oxygen saturation around 89 to 90% on room air. MD elicited complaint: shortness of breath Pertinent past history: COPD Onset (ago): month(s) (2) Timing: constant and progressively worsening Severity: severe Exacerbating factors: lying flat Relieving factors: nothing Known history of: COPD Associated symptoms: Reports orthopnea; Deny abdominal pain, chest congestion, chest pain, cough, diaphoresis, dizziness, extremity pain, fever(s), hemoptysis, lightheadedness, myalgias, nausea, palpitations, paresthesias, polydipsia, polyuria, rash, sense of impending doom, syncope or vomiting Treatment prior to arrival: none Review of Systems General: Reports: 10 or more systems reviewed and unremarkable except in HPI and below Const: Denies: fever(s) or diaphoresis Card: Reports: orthopnea; Denies: chest pain, palpitations, lightheadedness or syncope Resp: Denies: hemoptysis or chest congestion GI: Denies: abdominal pain, nausea or vomiting Musc: Denies: extremity pain Neuro: Denies: dizziness Endo: Denies: polyuria or polydipsia PFSH ED PFSH: Medical History 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, recurrent, mild Major depressive disorder, single episode, unspecified Moderate episode of recurrent major depressive disorder Nicotine dependence, cigarettes, with other nicotine-induced disorders Obstructive sleep apnea (adult) (pediatric) Post-traumatic stress disorder, chronic Recurrent UTI Urgency of urination Surgical History H/O shoulder surgery H/O: hysterectomy Rectovaginal fistula repaired June 2018 S/P appendectomy S/P carpal tunnel release Family History Mother , 66 Cancer Hypertension Father , 62 Cancer lung CAD (coronary artery disease) Social History Smoking and tobacco status: current every day smoker Alcohol intake: never Marital status: Current occupational status: disabled History of recent travel: No Current gender identity: Female Physical Exam Const: COMMON NORMALS: no acute distress, average body habitus, patient oriented x3, no limitations, healthy appearing, alert and well nourished HENMT: COMMON NORMALS: normocephalic, atraumatic and moist oral mucous membranes HEAD & SCALP: normocephalic and atraumatic Neck/C-Spine: COMMON NORMALS: no meningeal signs and no JVD Resp: COMMON NORMALS: normal respiratory effort, No retractions, No use of accessory muscles and percussion normal AUSCULTATION: rales bilateral at the base PERCUSSION: percussion normal Cardio: COMMON NORMALS: no JVD, regular rate, regular rhythm, S1 normal heart sound present, S2 normal heart sound present, No gallops present (Cardio), No clicks present (Cardio), No murmurs present (Cardio), No rub (Cardio) and Peripheral pulses 2+ throughout RATE: regular rate RHYTHM: regular rhythm HEART SOUNDS: S1 normal heart sound present and S2 normal heart sound present PERIPHERAL PULSES: Peripheral pulses 2+ throughout GI: COMMON NORMALS: Normal to inspection, nondistended, normoactive bowel sounds present, Soft to palpation, non-tender, No hepatosplenomegaly present, no masses and no bruits PALPATION: Yes Soft to palpation and Yes No hepatosplenomegaly present Extremity: COMMON NORMALS: normal to inspection, full ROM, capillary refill normal and no calf tenderness GENERAL: Yes edema (3+) Neuro: COMMON NORMALS: patient oriented x3 SENSORIUM/ORIENTATION: Yes alert MENINGEAL SIGNS: Yes no meningeal signs Course ED course: 1436: Discussed her lab and imaging findings with her. Explained to her D-dimer is significantly elevated and so she will get a CTA of her lungs to rule out a PE. Explained that her proBNP was normal and chest x-ray does not show any obvious congestion so it does not appear that she is in heart failure. She voiced understanding and is in agreement with the plan. Vital Signs: Vital signs: Vital Signs Temperature 98.3 F 12/13/20 11:26 Pulse Rate 65 12/13/20 16:00 Respiratory Rate 20 H 12/13/20 16:00 Blood Pressure 144/105 12/13/20 16:00 Pulse Oximetry 96 12/13/20 16:00 MDM - SOB/Dyspnea MDM Narrative: Medical decision making narrative: This 60 year old female who presented to the ED with complaints of worsening leg swelling and shortness of breath. In the ED evaluation was not consistent with congestive heart failure. She had a significantly elevated D-dimer and I ordered a CTA of her lungs to rule out a pulmonary embolism. Patient did not wait for the results of the PE studies and left AGAINST MEDICAL ADVICE. She walked out of the emergency department before I had a chance to talk to her. CTA overall does not suggest a PE although there is a question of a small single embolus in a single pulmonary artery. The radiologist does not think it is likely to be an embolus. Medical Records: Attestation: I reviewed the patient's medical records. Lab Data: Attestation: I reviewed the patient's lab results. Labs: Lab Results 12/13/20 12/13/20 12/13/20 Range/Units 11:53 12:38 12:38 WBC 5.3 (4.0-10.0) 10^3/ uL RBC 4.66 (4.1-5.3) 10^6/u L Hgb 11.7 (11.5-15.3) g/dL Hct 38.0 (37.0-47.0) % MCV 81.5 (81-99) fL MCH 25.1 L (28.0-34.0) pg MCHC 30.8 (30.0-36.0) g/dL RDW 19.1 H (12.1-15.1) % Plt Count 234 (130-400) 10^3/c mm MPV 9.7 (7.4-10.4) fL Neut % (Auto) 61.6 % Lymph % (Auto) 26.3 % [place] % (Auto) 7.3 % Eos % (Auto) 3.8 % Baso % (Auto) 0.6 % Neut # (Auto) 3.29 (1.8-7.7) 10^3/u L Lymph # (Auto) 1.4 (0.8-4.8) 10^3/u L [place] # (Auto) 0.4 (0.2-0.9) 10^3/u L Eos # (Auto) 0.2 (0.0-0.8) 10^3/u L Baso # (Auto) 0.0 (0.0-0.1) 10^3/u L Nucleated RBC % (a uto) 0 % Nucleated RBCs # 0.0 /100WBC PT 13.00 (12.1-14.9) SECO NDS INR 0.95 (0.8-1.2) D-Dimer (0-0.59) ug/mIFE U Specimen Type Arterial Sample Site Radial, right ABG pH 7.41 (7.35-7.45) ABG pCO2 53.2 H (35-45) mmHg ABG pO2 83.8 (80.0-100.0) mmH g ABG HCO3 33.4 H (22-26) mmol/L ABG Base Excess 7.3 H (-2.0-2.0) mmol/ L Bassam Test Pos Hematocrit 36.2 L (37-47) % Hgb O2 Saturation 88.9 L (95-100) % Carboxyhemoglobin 8.0 (0.4-20.1) %THgb Methemoglobin 0.8 (0.4-1.5) % Total Hemoglobin 11.8 L (12-16) g/dL O2 Delivery Device Nc O2 Liters/Min 2.0 % FiO2 28.0 % Veterinary Pathologist ID Ed Sodium (136-145) mmol/L Potassium (3.5-5.1) mmol/L Chloride (98-107) mmol/L Carbon Dioxide (22-29) mmol/L Anion Gap (5-19) BUN (8-23) mg/dL Creatinine (0.5-0.9) mg/dL GFR Calculation (90-130) mL/min Glucose (65-115) mg/dL Calculated Osmolal ity (285-295) mOsm/k g Calcium (8.5-10.5) mg/dL Total Bilirubin (0.15-1.2) mg/dL AST (0-32) U/L ALT (0-33) U/L Alkaline Phosphata se (35-105) IU/L Troponin T Baselin e (0-10) ng/L Troponin T 120 Min antoinette (0-10) ng/L Delta Troponin T (0-10) ABS# NT-Pro-B Natriuret Pep (0-125) pg/mL Total Protein (6.6-8.7) g/dL Albumin (3.5-5.2) g/dL Globulin (1.3-4.6) g/dL 12/13/20 12/13/20 12/13/20 Range/Units 12:38 12:38 12:38 WBC (4.0-10.0) 10^3/ uL RBC (4.1-5.3) 10^6/u L Hgb (11.5-15.3) g/dL Hct (37.0-47.0) % MCV (81-99) fL MCH (28.0-34.0) pg MCHC (30.0-36.0) g/dL RDW (12.1-15.1) % Plt Count (130-400) 10^3/c mm MPV (7.4-10.4) fL Neut % (Auto) % Lymph % (Auto) % [place] % (Auto) % Eos % (Auto) % Baso % (Auto) % Neut # (Auto) (1.8-7.7) 10^3/u L Lymph # (Auto) (0.8-4.8) 10^3/u L [place] # (Auto) (0.2-0.9) 10^3/u L Eos # (Auto) (0.0-0.8) 10^3/u L Baso # (Auto) (0.0-0.1) 10^3/u L Nucleated RBC % (a uto) % Nucleated RBCs # /100WBC PT (12.1-14.9) SECO NDS INR (0.8-1.2) D-Dimer 2.23 H (0-0.59) ug/mIFE U Specimen Type Sample Site ABG pH (7.35-7.45) ABG pCO2 (35-45) mmHg ABG pO2 (80.0-100.0) mmH g ABG HCO3 (22-26) mmol/L ABG Base Excess (-2.0-2.0) mmol/ L Bassam Test Hematocrit (37-47) % Hgb O2 Saturation (95-100) % Carboxyhemoglobin (0.4-20.1) %THgb Methemoglobin (0.4-1.5) % Total Hemoglobin (12-16) g/dL O2 Delivery Device O2 Liters/Min % FiO2 % Veterinary Pathologist ID Sodium 139 (136-145) mmol/L Potassium 4.2 (3.5-5.1) mmol/L Chloride 98 (98-107) mmol/L Carbon Dioxide 32 H (22-29) mmol/L Anion Gap 13.2 (5-19) BUN 9 (8-23) mg/dL Creatinine 0.7 (0.5-0.9) mg/dL GFR Calculation 85.1 L (90-130) mL/min Glucose 91 (65-115) mg/dL Calculated Osmolal ity 286 (285-295) mOsm/k g Calcium 8.5 (8.5-10.5) mg/dL Total Bilirubin 0.2 (0.15-1.2) mg/dL AST 15 (0-32) U/L ALT 12 (0-33) U/L Alkaline Phosphata se 56 (35-105) IU/L Troponin T Baselin e 37 H (0-10) ng/L Troponin T 120 Min antoinette (0-10) ng/L Delta Troponin T (0-10) ABS# NT-Pro-B Natriuret Pep 116 (0-125) pg/mL Total Protein 6.1 L (6.6-8.7) g/dL Albumin 3.8 (3.5-5.2) g/dL Globulin 2.3 (1.3-4.6) g/dL 12/13/20 Range/Units 15:05 WBC (4.0-10.0) 10^3/ uL RBC (4.1-5.3) 10^6/u L Hgb (11.5-15.3) g/dL Hct (37.0-47.0) % MCV (81-99) fL MCH (28.0-34.0) pg MCHC (30.0-36.0) g/dL RDW (12.1-15.1) % Plt Count (130-400) 10^3/c mm MPV (7.4-10.4) fL Neut % (Auto) % Lymph % (Auto) % [place] % (Auto) % Eos % (Auto) % Baso % (Auto) % Neut # (Auto) (1.8-7.7) 10^3/u L Lymph # (Auto) (0.8-4.8) 10^3/u L [place] # (Auto) (0.2-0.9) 10^3/u L Eos # (Auto) (0.0-0.8) 10^3/u L Baso # (Auto) (0.0-0.1) 10^3/u L Nucleated RBC % (a uto) % Nucleated RBCs # /100WBC PT (12.1-14.9) SECO NDS INR (0.8-1.2) D-Dimer (0-0.59) ug/mIFE U Specimen Type Sample Site ABG pH (7.35-7.45) ABG pCO2 (35-45) mmHg ABG pO2 (80.0-100.0) mmH g ABG HCO3 (22-26) mmol/L ABG Base Excess (-2.0-2.0) mmol/ L Bassam Test Hematocrit (37-47) % Hgb O2 Saturation (95-100) % Carboxyhemoglobin (0.4-20.1) %THgb Methemoglobin (0.4-1.5) % Total Hemoglobin (12-16) g/dL O2 Delivery Device O2 Liters/Min % FiO2 % Veterinary Pathologist ID Sodium (136-145) mmol/L Potassium (3.5-5.1) mmol/L Chloride (98-107) mmol/L Carbon Dioxide (22-29) mmol/L Anion Gap (5-19) BUN (8-23) mg/dL Creatinine (0.5-0.9) mg/dL GFR Calculation (90-130) mL/min Glucose (65-115) mg/dL Calculated Osmolal ity (285-295) mOsm/k g Calcium (8.5-10.5) mg/dL Total Bilirubin (0.15-1.2) mg/dL AST (0-32) U/L ALT (0-33) U/L Alkaline Phosphata se (35-105) IU/L Troponin T Baselin e (0-10) ng/L Troponin T 120 Min antoinette 37.15 H (0-10) ng/L Delta Troponin T 0.15 (0-10) ABS# NT-Pro-B Natriuret Pep (0-125) pg/mL Total Protein (6.6-8.7) g/dL Albumin (3.5-5.2) g/dL Globulin (1.3-4.6) g/dL Imaging Data^: CTA Chest: Attestation: I personally reviewed and interpreted this imaging study as follows: Radiologist's impression: [address] [id number] Scan ReportSigned Patient: Jasmin Villalobos #: [id number]: [id number]#:[id number]/Sex: 60 / FADM Date: 12/13/20Loc: ERRoom/Bed:Attending Dr: Ordering Provider/Ordering MD: Jovanny Sesay MD, [facility] Date of Service: 12/13/20 Procedure(s): CT angio chest PE protcl [id number] Accession Number(s): [id number] Report Number: [id number] WS: [id number] Exam: CT angio chest PE protcl [id number] Date/Time of Exam: 12/13/2020 3:29 PM Reason For Exam: SOB, high pretest prob DLP: 535.[address] scans at [facility] use at least one of these dose optimization techniques: automated exposure control; mA and/or kV adjustment per patient size (includes targeted exams where dose is matched to clinical indication); or iterative reconstruction. Compared to previous exam 08/07/2016. A questionable intraluminal filling defect involves a single small pulmonary artery branch to the right upper lobe. This is best noted on the thin slice axial images but not identified on sagittal or coronal reformatted images. Pulmonary embolus is not completely excluded but this is of doubtful finding. No other sign of pulmonary embolus. The thoracic aorta is normal in caliber. The central pulmonary arteries are clear. Coronary artery calcifications are noted. No pleural or pericardial effusion. The lungs are fully expanded and clear. The airway is patent. Normal thyroid tissue. The chest wall is intact. No destructive bone lesions are seen. CT/CT angio chest PE protcl [id number] IMPRESSION: 1. Questionable intraluminal filling defect involving a single small pulmonary artery branch to the right upper lobe seen best on axial images. This is not confirmed on reconstructed images. Pulmonary embolus not excluded but felt to be unlikely. 2. No other acute finding in the chest. Dictated By:Mark Mcelroy, DAMONigned By:Mark Mcelroy, Mino Date/Time:12/13/20 1620DD/ 1559 CXR: Attestation: I personally reviewed and interpreted this imaging study as follows: Radiologist's impression: [address] [id number] ReportSigned Patient: Jasmin Villalobos #: [id number]: 1960cct#:[id number]/Sex: 60 / FADM Date: 12/13/20Loc: ERRoom/Bed:Attending Dr: Ordering Provider/Ordering MD: Jovanny Sesay MD, [facility] Date of Service: 12/13/20 Procedure(s): XR chest 1V portable [id number] Accession Number(s): [id number] Report Number: [id number] PROCEDURE INFORMATION: Exam: XR Chest Exam date and time: 12/13/2020 11:43 AM Age: 60 years old Clinical indication: Shortness of breath; Patient HX: SOB, cough, feet swelling x2 months TECHNIQUE: Imaging protocol: XR of the chest. Views: 1 view. COMPARISON: CR XR chest 2V* [id number] 10/30/2020 2:44 PM FINDINGS: Lungs: Unremarkable. No consolidation. Pleural spaces: Unremarkable. No pleural effusion. No pneumothorax. Heart/Mediastinum: Unremarkable. No cardiomegaly. Bones/joints: Unremarkable. XR/XR chest 1V portable [id number] IMPRESSION: No significant abnormality. Dictated By:Teresa Sloan By:Teresa Sloan Date/Time:12/13/20 1239DD/ 1237 EKG Data^: EKG 1: Attestation: I personally reviewed and interpreted this EKG as follows: EKG Interpretation Date: 12/13/20 EKG interpretation time: 11:46 Prior EKG tracings: not available for review Interpretation: Sinus bradycardia. Heart rates [address] changes. Discharge Plan Discharge Patient Disposition: Left Against Medical Advice Clinical Impression: Pedal edema, Shortness of breath Condition: Stable Prescriptions: No Action omeprazole 40 mg capsule,delayed release(DR/EC) 40 mg PO DAILY@0800 RF: 0 losartan 25 mg tablet 25 mg PO DAILY@0800 RF: 0 estradiol [Estrace] 0.01 % (0.1 mg/gram) cream See Rx Instructions vaginal .COMPLEX Qty: 42.5 RF: 3 carvedilol 12.5 mg tablet 12.5 mg PO BID@799,1999 RF: 0 oxycodone 5 mg tablet 5 mg PO Q6H PRN (Reason: Pain) RF: 0 cholecalciferol (vitamin D3) [Vitamin D3] 50 mcg (2,000 unit) Tablet 50 mcg PO DAILY@0800 RF: 0 omega 3-jal-ksw-fish oil [Fish Oil] 300-1,000 mg Capsule 1 cap PO DAILY@0800 RF: 0 potassium chloride 10 mEq tablet extended release 10 meq PO DAILY RF: 0 furosemide 20 mg tablet 20 mg PO DAILY@0800 RF: 0 albuterol sulfate 90 mcg/actuation HFA aerosol inhaler See Rx Instructions .ROUTE .COMPLEX RF: 0 fluoxetine 40 mg capsule 80 mg PO DAILY@0800 RF: 0 oxybutynin chloride 10 mg tablet extended release 24hr 10 mg PO DAILY@0800 RF: 0 Depakote 500 mg tablet,delayed release (DR/EC) 500 mg PO DAILY@0800 RF: 0 trazodone 100 mg tablet 200 mg PO BEDTIME PRN (Reason: insomnia) RF: 0 Synthroid 50 mcg tablet 50 mcg PO DAILY@0800 RF: 0 cefuroxime axetil 500 mg tablet 500 mg PO BID@799,1999 RF: 0 Rexulti 3 mg tablet 3 mg PO DAILY@0800 RF: 0 Referrals: Darell Orourke MD [Primary Care Provider] - Coding Level of Care Code ED Tooling Supervisor for Chg Fwd Exam Detailed
[2020-12-13 12:02] LABS: ABG PCO2 53.2 mmHg (35-45); ABG PH Result 7.41 (7.35-7.45); Arterial Blood Gas Hematocrit 36.2 % (37-47); Base Excess ABG 7.3 mmol/L (-2.0-2.0); Blood Gas Allen Test Pos; Blood Gas Sample Type Arterial; HCO3 ABG 33.4 mmol/L (22-26); HGB O2 Sat 88.9 % (95-100); Methemoglobin 0.8 % (0.4-1.5); PO2 ABG 83.8 mmHg (80.0-100.0); Total Hemoglobin 11.8 g/dL (12-16)
[2020-12-13 12:04] LABS: Blood Gas Operator Identificat ED; Blood Gas Sample Site Radial, right; Oxygen Device NC
[2020-12-13 12:52] LABS: Basophils % 0.6 %; Eosinophils # 0.2 10^3/uL (0.0-0.8); Eosinophils % 3.8 %; Hemoglobin 11.7 g/dL (11.5-15.3); Lymphocytes # 1.4 10^3/uL (0.8-4.8); Lymphocytes % 26.3 %; Mean Corpuscular HGB Conc 30.8 g/dL (30.0-36.0); Mean Corpuscular Hemoglobin 25.1 pg (28.0-34.0); Mean Corpuscular Volume 81.5 fL (81-99); Mean Platelet Volume 9.7 fL (7.4-10.4); Monocytes # 0.4 10^3/uL (0.2-0.9); Monocytes % 7.3 %; Neutrophils # 3.29 10^3/uL (1.8-7.7); Neutrophils % 61.6 %; Nucleated Red Blood Cells % 0 %; Platelet Count 234 10^3/cmm (130-400); Red Blood Count 4.66 10^6/uL (4.1-5.3); Red Cell Distribution Width 19.1 % (12.1-15.1); White Blood Count 5.3 10^3/uL (4.0-10.0)
[2020-12-13 13:04] LABS: INR 0.95 (0.8-1.2)
[2020-12-13 13:17] LABS: Troponin(5th) Baseline 37 ng/L (0-10)
[2020-12-13 13:25] LABS: Alanine Aminotransferase 12 U/L (0-33); Albumin Level 3.8 g/dL (3.5-5.2); Alkaline Phosphatase 56 IU/L (35-105); Anion Gap 13.2 (5-19); Aspartate Amino Transferase 15 U/L (0-32); Blood Urea Nitrogen 9 mg/dL (8-23); Calcium 8.5 mg/dL (8.5-10.5); Carbon Dioxide 32 mmol/L (22-29); Chloride 98 mmol/L (98-107); Creatinine Clr Calc Pharmacy 104.1614; Globulin 2.3 g/dL (1.3-4.6); Glomerular Filtration Rate 85.1 mL/min (90-130); Glucose 91 mg/dL (65-115); NT Pro B Type Natriuretic Pept 116 pg/mL (0-125); Osmolality Calculated 286 mOsm/kg (285-295); Potassium 4.2 mmol/L (3.5-5.1); Sodium 139 mmol/L (136-145); Total Bilirubin 0.2 mg/dL (0.15-1.2); Total Protein 6.1 g/dL (6.6-8.7)
[2020-12-13 13:40] VITALS: BP 126/90; PULSE 66; RESP 16; O2SAT 97
[2020-12-13 14:25] LABS: D Dimer 2.23 ug/mIFEU (0-0.59)
--- NOTE | 2020-12-13 14:29 | CT_ITS ---
WS: [id number] Exam: CT angio chest PE protcl [id number] Date/Time of Exam: 12/13/2020 3:29 PM Reason For Exam: SOB, high pretest prob DLP: 535.[address] scans at [facility] use at least one of these dose optimization techniques: automat ed exposure control; mA and/or kV adjustment per patient size (includes targeted exams where dose is matched to clinical indication); or iterative reconstruction. Compared to previous exam 08/07/2016. A questionable intraluminal filling defect involves a single small pulmonary artery branch to the rig ht upper lobe. This is best noted on the thin slice axial images but not identified on sagittal or co ana maria reformatted images. Pulmonary embolus is not completely excluded but this is of doubtful findin g. No other sign of pulmonary embolus. The thoracic aorta is normal in caliber. The central pulmonary arteries are clear. Coronary artery calcifications are noted. No pleural or pericardial effusion. Th e lungs are fully expanded and clear. The airway is patent. Normal thyroid tissue. The chest wall is intact. No destructive bone lesions are seen. CT/CT angio chest PE protcl [id number] IMPRESSION: 1. Questionable intraluminal filling defect involving a single small pulmonary artery branch to the right upper lobe seen best on axial images. This is not co nfirmed on reconstructed images. Pulmonary embolus not excluded but felt to be unlikely. 2. No other acute finding in the chest.
[2020-12-13 14:48] VITALS: BP 157/98; PULSE 70; RESP 18; O2SAT 98
[2020-12-13] MEDS: FUROsemide 10 mg/mL SDV 4mL 40 MG IVP (14:49)
[2020-12-13 15:35] LABS: Troponin 5 2HR 37.15 ng/L (0-10); Troponin 5 2HR Delta 0.15 ABS# (0-10)
[2020-12-13] MEDS: iohexol 350 mg/mL 100 mL Btl IV (15:39)
[2020-12-13 16:00] VITALS: BP 144/105; PULSE 65; RESP 20; O2SAT 96
--- NOTE | 2020-12-13 16:10 | PC.NURSE ---
patient ambulated to bathroom without difficulty
--- NOTE | 2020-12-13 17:05 | PC.NURSE ---
patient left AMA at 1635, removed iv self, no bleeding noted.
== END 2020-12-13 16:35 | disposition left against medical advice (07) ==
PROVIDERS: Emergency Provider Family Medicine; PCP Family Medicine
DX: R06.02 Shortness of breath (principal); R60.0 Localized edema; Z53.21 Procedure and treatment not carried out due to patient leaving prior to being seen by health care provider; F17.210 Nicotine dependence, cigarettes, uncomplicated
CPT/HCPCS: 36600; 71045; 71275; 80053; 82805; 83880; 84484; 85025; 85378; 85610; 93005; 96374; 99284; J1940; Q9967

== ENCOUNTER → 2021-01-01 10:23 | Outpatient (BNVA) | payer MEDICARE, MEDICAID, SELFPAY | PROVIDERS: PCP Family Medicine; Visit Provider Internal Medicine Critical Care Medicine | DX: R06.02 Shortness of breath (principal); Z20.822 Contact with and (suspected) exposure to COVID-19 | CPT/HCPCS: 87635 ==

== ENCOUNTER 2021-01-06 09:08 | Outpatient (CLI) | payer MEDICARE, MEDICAID, SELFPAY ==
--- NOTE | 2021-01-06 13:27 | PFTS_ITS ---
Date of Study:01/06/21 Date of Dictation: MECHANICS: Forced vital capacity (FVC) is reduced. Forced expiratory volume in one second (FEV1) is reduced. FEV1/FVC is normal. FLOW VOLUME LOOP: Mild scooping. LUNG VOLUMES: Not measured DIFFUSING CAPACITY FOR CARBON MONOXIDE: Normal. INTERPRETATION: The postbronchodilator spirometry is consistent with mild restriction. There is no significant postbronchodilator response. Flow volume loop is consistent with small airways disease. Lung volumes are not measured. Gas exchange (DLCO) is normal. MTDD
== END 2021-01-06 09:09 | disposition home or self-care (01) ==
PROVIDERS: PCP Family Medicine; Visit Provider Internal Medicine Critical Care Medicine
DX: R06.02 Shortness of breath (principal)
CPT/HCPCS: 94060; 94729; J7611

== ENCOUNTER → 2021-02-04 07:50 | Outpatient (BNVA) | payer MEDICARE, MEDICAID, SELFPAY | PROVIDERS: PCP Family Medicine; Visit Provider Nurse Practitioner Psychiatric/Mental Health | DX: F43.12 Post-traumatic stress disorder, chronic (principal); F17.218 Nicotine dependence, cigarettes, with other nicotine-induced disorders; F33.1 Major depressive disorder, recurrent, moderate | CPT/HCPCS: 99213 ==

== ENCOUNTER → 2021-02-12 10:39 | Outpatient (BNVA) | payer MEDICARE, MEDICAID, SELFPAY | PROVIDERS: PCP Family Medicine; Visit Provider Urology | DX: N30.80 Other cystitis without hematuria (principal); R39.15 Urgency of urination; R33.9 Retention of urine, unspecified | CPT/HCPCS: 81003 ==

== ENCOUNTER → 2021-03-26 13:30 | Outpatient (BNVA) | payer MEDICARE, MEDICAID, SELFPAY | PROVIDERS: PCP Family Medicine; Visit Provider Urology | DX: R33.9 Retention of urine, unspecified (principal); N30.80 Other cystitis without hematuria | CPT/HCPCS: 81003 ==

== ENCOUNTER → 2021-04-01 07:49 | Outpatient (BNVA) | payer MEDICARE, MEDICAID, SELFPAY | PROVIDERS: PCP Family Medicine; Visit Provider Nurse Practitioner Psychiatric/Mental Health | DX: F43.12 Post-traumatic stress disorder, chronic (principal); F33.1 Major depressive disorder, recurrent, moderate; F17.218 Nicotine dependence, cigarettes, with other nicotine-induced disorders; Z79.899 Other long term (current) drug therapy | CPT/HCPCS: 99214 ==

== ENCOUNTER → 2021-05-21 13:03 | Outpatient (BNVA) | payer MEDICARE, MEDICAID, SELFPAY | PROVIDERS: PCP Family Medicine; Visit Provider Urology | DX: N39.0 Urinary tract infection, site not specified (principal); R33.9 Retention of urine, unspecified | CPT/HCPCS: 81003 ==

== ENCOUNTER → 2021-06-09 08:46 | Outpatient (BNVA) | payer MEDICARE, MEDICAID, SELFPAY | PROVIDERS: PCP Family Medicine; Visit Provider Nurse Practitioner Psychiatric/Mental Health | DX: F43.12 Post-traumatic stress disorder, chronic (principal); F33.1 Major depressive disorder, recurrent, moderate; F17.218 Nicotine dependence, cigarettes, with other nicotine-induced disorders; Z79.899 Other long term (current) drug therapy; E66.01 Morbid (severe) obesity due to excess calories | CPT/HCPCS: 80053; 80061; 83036; 99213 ==

== ENCOUNTER → 2021-07-22 14:57 | Outpatient (BNVA) | payer MEDICARE, MEDICAID, SELFPAY | PROVIDERS: PCP Family Medicine; Visit Provider Urology | DX: R33.9 Retention of urine, unspecified (principal); N30.80 Other cystitis without hematuria; N94.9 Unspecified condition associated with female genital organs and menstrual cycle | CPT/HCPCS: 81003 ==

== ENCOUNTER → 2021-08-07 10:32 | Outpatient (BNVA) | payer MEDICARE, MEDICAID, SELFPAY | PROVIDERS: PCP Family Medicine; Visit Provider Nurse Practitioner Psychiatric/Mental Health | DX: R06.02 Shortness of breath (principal); E66.01 Morbid (severe) obesity due to excess calories; F43.12 Post-traumatic stress disorder, chronic; F33.1 Major depressive disorder, recurrent, moderate; F17.218 Nicotine dependence, cigarettes, with other nicotine-induced disorders; Z79.899 Other long term (current) drug therapy | CPT/HCPCS: 99213 ==

== ENCOUNTER → 2021-09-08 11:15 | Outpatient (BNVA) | payer MEDICARE, MEDICAID, SELFPAY | PROVIDERS: PCP Family Medicine; Visit Provider Nurse Practitioner Psychiatric/Mental Health | DX: R06.02 Shortness of breath (principal); E66.01 Morbid (severe) obesity due to excess calories; F43.12 Post-traumatic stress disorder, chronic; F33.1 Major depressive disorder, recurrent, moderate; F17.200 Nicotine dependence, unspecified, uncomplicated; Z79.899 Other long term (current) drug therapy; F17.218 Nicotine dependence, cigarettes, with other nicotine-induced disorders | CPT/HCPCS: 99214 ==

== ENCOUNTER → 2021-09-18 11:05 | Outpatient (BNVA) | payer MEDICARE, MEDICAID, SELFPAY | PROVIDERS: PCP Family Medicine; Visit Provider Internal Medicine Critical Care Medicine | DX: G47.33 Obstructive sleep apnea (adult) (pediatric) (principal); F17.210 Nicotine dependence, cigarettes, uncomplicated; J98.4 Other disorders of lung; I89.0 Lymphedema, not elsewhere classified; E66.01 Morbid (severe) obesity due to excess calories | CPT/HCPCS: 99214 ==

== ENCOUNTER 2021-09-24 13:05 | Outpatient (CLI) | payer MEDICARE, MEDICAID, SELFPAY ==
[2021-09-24 16:19] LABS: Anion Gap 16.1 (5-19); Blood Urea Nitrogen 14 mg/dL (8-23); Calcium 9.5 mg/dL (8.5-10.5); Carbon Dioxide 27 mmol/L (22-29); Chloride 100 mmol/L (98-107); Glomerular Filtration Rate 84.8 mL/min (90-130); Glucose 88 mg/dL (65-115); Osmolality Calculated 288 mOsm/kg (285-295); Potassium 4.1 mmol/L (3.5-5.1); Sodium 139 mmol/L (136-145)
== END 2021-09-24 13:06 | disposition home or self-care (01) ==
LOC: LAB 13:17
PROVIDERS: PCP Family Medicine; Visit Provider Urology
DX: R33.9 Retention of urine, unspecified (principal)
CPT/HCPCS: 80048

== ENCOUNTER → 2021-09-25 13:40 | Outpatient (BNVA) | payer MEDICARE, MEDICAID, SELFPAY | PROVIDERS: PCP Family Medicine; Visit Provider Nurse Practitioner Family | DX: N30.80 Other cystitis without hematuria (principal) | CPT/HCPCS: 81003 ==

== ENCOUNTER → 2021-10-06 12:51 | Outpatient (BNVA) | payer MEDICARE, MEDICAID, SELFPAY | PROVIDERS: PCP Family Medicine; Visit Provider Nurse Practitioner Psychiatric/Mental Health | DX: F17.200 Nicotine dependence, unspecified, uncomplicated (principal); E66.01 Morbid (severe) obesity due to excess calories; F33.1 Major depressive disorder, recurrent, moderate; F43.12 Post-traumatic stress disorder, chronic; F17.218 Nicotine dependence, cigarettes, with other nicotine-induced disorders; Z79.899 Other long term (current) drug therapy | CPT/HCPCS: 99214 ==

== ENCOUNTER → 2021-10-22 14:54 | Outpatient (BNVA) | payer MEDICARE, MEDICAID, SELFPAY | PROVIDERS: PCP Family Medicine; Referring Provider Family Medicine; Visit Provider Orthopaedic Surgery | DX: M75.01 Adhesive capsulitis of right shoulder (principal); M75.02 Adhesive capsulitis of left shoulder; M79.7 Fibromyalgia; F17.210 Nicotine dependence, cigarettes, uncomplicated | CPT/HCPCS: 73030; 99203 ==

== ENCOUNTER 2021-11-18 06:00 | Outpatient (RCR) | payer MEDICARE, MEDICAID, SELFPAY | END 2021-11-25 23:59 | disposition home or self-care (01) | LOC: SPT 06:00 | PROVIDERS: PCP Family Medicine; Referring Provider Orthopaedic Surgery; Visit Provider Orthopaedic Surgery | DX: M75.01 Adhesive capsulitis of right shoulder (principal) | CPT/HCPCS: 97161 ==

== ENCOUNTER 2021-11-26 06:00 | Outpatient (RCR) | payer MEDICARE, MEDICAID, SELFPAY | END 2021-12-19 23:59 | disposition home or self-care (01) | LOC: SPT 06:00 | PROVIDERS: PCP Family Medicine; Referring Provider Orthopaedic Surgery; Visit Provider Orthopaedic Surgery | DX: M25.519 Pain in unspecified shoulder (principal); M25.619 Stiffness of unspecified shoulder, not elsewhere classified | CPT/HCPCS: 97110 ==

== ENCOUNTER → 2021-12-08 13:07 | Outpatient (BNVA) | payer MEDICARE, MEDICAID, SELFPAY | PROVIDERS: PCP Family Medicine; Visit Provider Nurse Practitioner Psychiatric/Mental Health | DX: G47.33 Obstructive sleep apnea (adult) (pediatric) (principal); Z99.89 Dependence on other enabling machines and devices; M79.7 Fibromyalgia; F43.12 Post-traumatic stress disorder, chronic; F33.1 Major depressive disorder, recurrent, moderate; Z79.899 Other long term (current) drug therapy; F17.218 Nicotine dependence, cigarettes, with other nicotine-induced disorders | CPT/HCPCS: 99213 ==

== ENCOUNTER → 2022-01-13 10:08 | Outpatient (BNVA) | payer MEDICARE, MEDICAID, SELFPAY | PROVIDERS: PCP Family Medicine; Visit Provider Urology | DX: N30.80 Other cystitis without hematuria (principal); R39.15 Urgency of urination; R33.9 Retention of urine, unspecified; N94.9 Unspecified condition associated with female genital organs and menstrual cycle | CPT/HCPCS: 51798; 81003; 87086; 99213 ==

== ENCOUNTER → 2022-01-23 08:49 | Outpatient (BNVA) | payer MEDICARE, MEDICAID, SELFPAY | PROVIDERS: PCP Family Medicine; Visit Provider Internal Medicine Critical Care Medicine | DX: J98.4 Other disorders of lung (principal); G47.33 Obstructive sleep apnea (adult) (pediatric); I89.0 Lymphedema, not elsewhere classified; F17.210 Nicotine dependence, cigarettes, uncomplicated; Z68.42 Body mass index [BMI] 45.0-49.9, adult; E66.01 Morbid (severe) obesity due to excess calories | CPT/HCPCS: 99214 ==

== ENCOUNTER → 2022-03-03 13:21 | Outpatient (BNVA) | payer MEDICARE, MEDICAID, SELFPAY | PROVIDERS: PCP Family Medicine; Visit Provider Nurse Practitioner Family | DX: N30.80 Other cystitis without hematuria (principal); R39.15 Urgency of urination; R33.9 Retention of urine, unspecified; N94.9 Unspecified condition associated with female genital organs and menstrual cycle | CPT/HCPCS: 81003; 99213 ==

== ENCOUNTER 2022-03-18 10:38 | Outpatient (CLI) | payer MEDICARE, MEDICAID, SELFPAY ==
--- NOTE | 2022-03-18 10:46 | CT_ITS ---
WS: [id number] LDCT LUNG CANCER SCREENING TECHNIQUE: Noncontrast CT of the chest with coronal and sagittal reformatted images. CLINICAL INFORMATION: Lung cancer screening COMPARISON: CTA chest December 13, 2020 DLP: 75.59 mGy.cm DIvol: Mean CTDIvol: 1.60 (mGy) All CT scans at [facility] use at least one of these dose optimization techniques: automat ed exposure control; mA and/or kV adjustment per patient size (includes targeted exams where dose is matched to clinical indication); or iterative reconstruction. FINDINGS: A few calcific granulomas. A few tiny subpleural nodules in the RIGHT upper lobe unchanged. Noncalcified nodule in the RIGHT upper lobe measuring 6 mm along the fissure is unchanged. 5 mm subpleural opacity RIGHT upper lobe posteriorly unchanged. A few tiny scattered micronodules unc hanged. No acute pulmonary infiltrates. No focal pneumonia or pleural fluid. Normal caliber thoracic aorta. Coronary calcification. No mediastinal or hilar lymphadenopathy. No ax illary lymphadenopathy. Adrenal glands are normal. Cholecystectomy clips. Normal GE junction. Splenic granulomas. No axillary lymphadenopathy. Mild disc space narrowing mid thoracic spine. CT/CT lung screening [id number] IMPRESSION: LUNG-RADS: 2-Benign Appearance or Behavior FOLLOW UP: 12 Month: Continue annual screening with LDCT
== END 2022-03-18 10:39 | disposition home or self-care (01) ==
LOC: RAD 10:39
PROVIDERS: PCP Family Medicine; Visit Provider Internal Medicine Critical Care Medicine
DX: Z12.2 Encounter for screening for malignant neoplasm of respiratory organs (principal); F17.210 Nicotine dependence, cigarettes, uncomplicated
CPT/HCPCS: 71271

== ENCOUNTER → 2022-05-04 11:51 | Outpatient (BNVA) | payer MEDICARE, MEDICAID, OTHER, SELFPAY | PROVIDERS: PCP Family Medicine; Visit Provider Nurse Practitioner Psychiatric/Mental Health | DX: F43.12 Post-traumatic stress disorder, chronic (principal); F17.218 Nicotine dependence, cigarettes, with other nicotine-induced disorders; F33.1 Major depressive disorder, recurrent, moderate; Z79.899 Other long term (current) drug therapy; M79.7 Fibromyalgia; E66.01 Morbid (severe) obesity due to excess calories | CPT/HCPCS: 80053; 80061; 80164; 83036 ==

== ENCOUNTER → 2022-05-18 13:14 | Outpatient (BNVA) | payer MEDICARE, MEDICAID, OTHER, SELFPAY | PROVIDERS: PCP Family Medicine; Visit Provider Urology | DX: N39.41 Urge incontinence (principal); R33.9 Retention of urine, unspecified; N30.80 Other cystitis without hematuria; M79.7 Fibromyalgia | CPT/HCPCS: 51798; 99213 ==

== ENCOUNTER → 2022-07-20 12:46 | Outpatient (BNVA) | payer MEDICARE, MEDICAID, SELFPAY | PROVIDERS: PCP Family Medicine; Visit Provider Family Medicine | DX: Z51.81 Encounter for therapeutic drug level monitoring (principal); E03.9 Hypothyroidism, unspecified; E53.8 Deficiency of other specified B group vitamins; R73.09 Other abnormal glucose; I10 Essential (primary) hypertension; R25.1 Tremor, unspecified; R53.81 Other malaise; R53.83 Other fatigue | CPT/HCPCS: 82607; 83036; 84439; 84443; 85025 ==

== ENCOUNTER 2022-08-19 15:13 | Outpatient (CLI) | payer MEDICARE, MEDICAID, SELFPAY ==
--- NOTE | 2022-08-19 15:26 | XRR_ITS ---
PROCEDURE INFORMATION: Exam: XR Left Hip Exam date and time: 08/19/2022 3:26 PM Age: 62 years old Clinical indication: Left hip; Patient HX: --lt hip pain for 2 weeks, no known trauma; Additional info: Left hip pain TECHNIQUE: Imaging protocol: Radiologic exam of the left hip. Views: 2 or 3 views hip with pelvis when performed. COMPARISON: CR XR hip LT 2-3V wo/w pel* [id number] 02/28/2020 3:03 PM FINDINGS: Bones/joints: Xuwf-gg-[id number] left hip osteoarthritis. Lumbar spine degenerative disc space disease. Soft tissues: Unremarkable. XR/XR hip LT 2-3V wo/w pel* [id number] IMPRESSION: 1. Kvhv-[id number] left hip osteoarthritis. 2. Lumbar spine degenerative disc space disease.
== END 2022-08-19 15:14 | disposition home or self-care (01) ==
LOC: RAD 15:17
PROVIDERS: PCP Family Medicine; Visit Provider Family Medicine
DX: M16.12 Unilateral primary osteoarthritis, left hip (principal); M51.36 Other intervertebral disc degeneration, lumbar region
CPT/HCPCS: 73502

== ENCOUNTER → 2022-09-02 09:15 | Outpatient (BNVA) | payer MEDICARE, MEDICAID, SELFPAY | PROVIDERS: PCP Family Medicine; Visit Provider Internal Medicine Pulmonary Disease | DX: J98.4 Other disorders of lung (principal); G47.33 Obstructive sleep apnea (adult) (pediatric); I89.0 Lymphedema, not elsewhere classified; E66.01 Morbid (severe) obesity due to excess calories; Z68.42 Body mass index [BMI] 45.0-49.9, adult; F17.210 Nicotine dependence, cigarettes, uncomplicated | CPT/HCPCS: 99214 ==

== ENCOUNTER 2023-02-09 15:24 | Outpatient (CLI) | payer MEDICARE, MEDICAID, SELFPAY ==
--- NOTE | 2023-02-09 15:45 | CT_ITS ---
WS: [id number] LDCT LUNG CANCER SCREENING HISTORY: lung screening TECHNIQUE: Axial imaging performed from the apices to 1 cm below the costophrenic angles. Coronal and sagittal reformats are submitted with axial MIP series. All CT scans at [facility] use at least one of these dose optimization techniques: automated exposure control; mA and/or kV adjustment per patient size (includes targeted exams where dose is matched to clinical indication); or iterativ e reconstruction. DLP: 131.65 mGy.cm DIvol: Mean CTDIvol: 3.20 (mGy) COMPARISON: 03/18/2022 Diagnostic quality: Satisfactory Lungs: Subpleural posterior right upper lobe nodule unchanged at 5 mm. There are several benign nodul es along the right fissures. Additional bilateral calcified granulomas. No new mass or nodule. No end obronchial lesions. Heart: Normal size heart. Mild pericardial thickening is stable.. Mild coronary artery calcifications . Other findings: Normal sized pulmonary artery. Mild atherosclerosis aorta. No adenopathy. Small hiata l hernia. Prior cholecystectomy. Splenic and hepatic granulomata. IMPRESSION: CT/CT lung screening [id number] LUNG-RADS: 2-Benign Appearance or Behavior FOLLOW UP: 12 Month: Continue annual screening with LDCT OTHER FINDINGS (S MODIFIER): None.
== END 2023-02-09 15:25 | disposition home or self-care (01) ==
PROVIDERS: PCP Family Medicine; Visit Provider Internal Medicine Pulmonary Disease
DX: F17.210 Nicotine dependence, cigarettes, uncomplicated (principal); Z12.2 Encounter for screening for malignant neoplasm of respiratory organs
CPT/HCPCS: 71271

== ENCOUNTER 2023-03-26 14:31 | Outpatient (CLI) | payer MEDICARE, MEDICAID, SELFPAY ==
--- NOTE | 2023-03-26 15:15 | US_ITS ---
WS: [id number] ULTRASOUND SOFT TISSUES medial LEFT calf. HISTORY: Palpable area medial calf. COMPARISON: None available. TECHNIQUE: 2-D and color Doppler imaging is submitted. Palpable area and prominent soft tissue is an area of increased soft tissue. There is no obvious mass or change in echogenicity. This may be a small lipoma that is isoechoic to the adjacent subcutaneous fat and muscle. There is a small muscular venous branch extending through the soft tissues IMPRESSION: Prominent soft tissue but no identifiable soft tissue mass in the medial LEFT calf.
== END 2023-03-26 14:32 | disposition home or self-care (01) ==
PROVIDERS: PCP Family Medicine; Visit Provider Family Medicine
DX: M79.89 Other specified soft tissue disorders (principal)
CPT/HCPCS: 76882

== ENCOUNTER 2023-10-27 15:29 | Outpatient (CLI) | payer MEDICARE, OTHER, SELFPAY ==
--- NOTE | 2023-10-27 15:34 | XR_ITS ---
WS: [id number] XR chest 2V* [id number] REASON FOR EXAM: Cough, dyspnea FINDINGS: The chest is relatively unchanged compared to 12/13/2020 with the exception of blunting of the left co stophrenic angle which most likely represents old reactive pleural thickening./scarring. Moderate tortuosity of the thoracic aorta. Calcified granulomas disease in both hemithoraces. No acute pulmonary parenchymal or pleural abnormality is identified. XR/XR chest 2V* [id number] IMPRESSION: No acute chest abnormality.
== END 2023-10-27 15:30 | disposition home or self-care (01) ==
LOC: RAD 15:30
PROVIDERS: PCP Family Medicine; Visit Provider Family Medicine
DX: R06.02 Shortness of breath (principal); J44.1 Chronic obstructive pulmonary disease with (acute) exacerbation; Q25.46 Tortuous aortic arch; J94.8 Other specified pleural conditions
CPT/HCPCS: 71046

== ENCOUNTER 2023-10-28 04:10 | Observation (INO) | payer MEDICARE, SELFPAY ==
[2023-10-28] VITALS (20 sets, daily range): BP systolic 134–164; BP diastolic 82–100; PULSE 61–84; RESP 14–25; TEMP 36.5–36.9; O2SAT 91–97; BMI 42.3
--- NOTE | 2023-10-28 04:17 | ECG_ITS ---
[facility] Test Date: 2023-10-28 Pat Name: Jasmin Villalobos Department: Room: Gender: Female Property Supervisor: : 1960 Requested By: Honey Montero Order Number: [id number] Britney MD: Marie Flores M.D. Measurements Intervals [place] Rate: 76 P: 32 PA: 179 QRS: 39 QRSD: 84 T: 56 QT: 362 QTc: 408 Interpretive Statements SINUS RHYTHM LOW QRS VOLTAGE IN PRECORDIAL LEADS [QRS DEFLECTION < 1.0 mV IN CHEST LEADS] Compared to ECG 12/13/2020 11:46:32 Sinus bradycardia no longer present T-wave abnormality no longer present Possible ischemia no longer present Electronically Signed On 10-28-2023 22:58:35 CDT by Marie Flores M.D. [email or web address] surgical [email or web address] [facility] [id number] [email or web address]
--- NOTE | 2023-10-28 04:21 | XRR_ITS ---
PROCEDURE INFORMATION: Exam: XR Chest Exam date and time: 10/28/2023 4:26 AM Age: 63 years old Clinical indication: Angina and shortness of breath; Additional info: SOB TECHNIQUE: Imaging protocol: Radiologic exam of the chest. Views: 1 view. COMPARISON: CR XR chest 2V* [id number] 10/27/2023 3:37 PM FINDINGS: Lungs: Mild hazy left CP angle region opacity corresponds to known prominent pericardial fat as seen on 02/09/2023 CT chest. No focal infiltrate or consolidate Pleural spaces: Unremarkable. No pleural effusion. No pneumothorax. Heart/Mediastinum: Heart size normal Bones/joints: No suspicious osseous findings XR/XR chest 1V portable [id number] IMPRESSION: No acute cardiopulmonary process.
--- NOTE | 2023-10-28 04:22 | ED_ITS ---
Documented by User: Honey Montero MD 10/28/23 04:25 HPI - SOB/Dyspnea 2 General: Chief Complaint: Shortness of Breath/Dyspnea Stated Complaint: Side pain,SOB Time Seen by Provider: 10/28/23 04:15 Source: patient Mode of arrival: ambulatory Limitations: no limitations History of Present Illness: HPI Narrative: 63-year-old female with a history of [employer]ANCE [employer] D is chronic smoker states she has had a cough and some dyspnea for the last 3 weeks. She states she started have sharp left-sided chest pain is worse with movement and with her cough. She seen her PCP's been started on albuterol and steroids states the cough has slightly improved but she is having worsening pain now. Denies any fever. Associated symptoms: Reports chest pain; Deny abdominal pain, fever(s), nausea or vomiting Review of Systems 2 Const: Denies: fever(s), chills, body aches or change in appetite ENMT: Denies: throat pain or dental pain Card: Reports: chest pain Resp: Reports: dyspnea and wheezing GI: Denies: abdominal pain, nausea, vomiting or diarrhea : Denies: dysuria Musc: Denies: neck pain or back pain Skin/Breast: Denies: rash Neuro: Denies: headache(s) PFSH ED 2 PFSH: Medical History DARON on CPAP Psychiatric care Incomplete bladder emptying Genital atrophy of female Urgency of urination Moderate episode of recurrent major depressive disorder Cystitis cystica Recurrent UTI Obstructive sleep apnea (adult) (pediatric) Nicotine dependence, cigarettes, with other nicotine-induced disorders Major depressive disorder, single episode, unspecified Post-traumatic stress disorder, chronic Major depressive disorder, recurrent, mild Surgical History H/O: hysterectomy H/O shoulder surgery S/P carpal tunnel release S/P appendectomy Rectovaginal fistula repaired June 2018 Family History Mother , 66 Cancer Hypertension Father , 62 Cancer lung CAD (coronary artery disease) Social History Smoking and tobacco/nicotine status: current every day tobacco/nicotine user cigarettes Packs smoked per day: 1 Years cigarettes smoked: 46 [ Other cigarette details: started at age 14 years] Second hand smoke exposure: Yes Alcohol intake: never Substance/Drug Use: never Lives independently: Yes Household members: none Marital status: Current occupational status: disabled Do you think of yourself as: Straight/Heterosexual Current gender identity: Female Physical Exam 2 Const: COMMON NORMALS: no acute distress, patient oriented x3 and healthy appearing HENMT: COMMON NORMALS: normocephalic and atraumatic HEAD & SCALP: n ormocephalic and atraumatic Eye: COMMON NORMALS: conjunctivae normal CONJUNCTIVA: Yes conjunctivae normal Neck/C-Spine: COMMON NORMALS: full ROM and supple Chest: COMMONS NORMALS: normal inspection of the chest OTHER: point tender over left lower chest reproduces pain Resp: COMMON NORMALS: normal respiratory effort, No retractions and No use of accessory muscles AUSCULTATION: wheezes Cardio: COMMON NORMALS: regular rate, regular rhythm and No murmurs present (Cardio) RATE: regular rate RHYTHM: regular rhythm GI: COMMON NORMALS: Normal to inspection, nondistended, normoactive bowel sounds present, Soft to palpation, non-tender and no masses PALPATION: Yes Soft to palpation Extremity: COMMON NORMALS: normal to inspection and full ROM Neuro: COMMON NORMALS: patient oriented x3, moves all extremities and no focal motor deficits Psych: COMMON NORMALS: mental status grossly normal, Normal thought process present and cooperative THOUGHT PROCESS: Normal thought process present Skin: COMMON NORMALS: no rashes or lesions noted and no wounds GENERAL SKIN EXAM: no rashes or lesions noted Course 2 Vital Signs: Vital signs: Vital Signs Temperature 97.7 F 10/28/23 04:13 Pulse Rate 70 10/28/23 07:00 Respiratory Rate 21 H 10/28/23 07:00 Blood Pressure 141/89 10/28/23 07:00 Pulse Oximetry 93 10/28/23 07:00 Oxygen Delivery Me thod Room Air 10/28/23 05:17 MDM - SOB/Dyspnea Medical Records I reviewed the patient's medical records. Lab Data I reviewed the patient's lab results. 10/28/23 04:30 10/28/23 04:54 Labs/Radiology: Radiology Impressions Chest X-Ray 10/28/23 04:21 IMPRESSION: No acute cardiopulmonary process. Chest CTA 10/28/23 05:23 IMPRESSION: 1. Nonocclusive pulmonary artery filling defects versus flow related artifact within right pulmonary artery superior trunk, with extension of possible filling defects into the apical and anterior branches. No evidence of right heart strain. Findings discussed with at 7:41 a.m. on 10/28/2023. 2. Unchanged pulmonary nodules as above. Consider follow-up per Fleischner society protocol.For patients at low risk (minimal or absent history of smoking and of other known risk factors), no routine follow-up is indicated. For patients at high risk (history of smoking or of other known risk factors), consider optional CT Chest at 12 months. (Reference: Renee) 3. Small pericardial effusion. Partially assessed 9 mm right hepatic hypodensity as described Mid esophageal wall thickening as described. Other chronic/ incidental findings as above. REFERENCES: Renee Yu, et al. Guidelines for Management of Incidental Pulmonary Nodules Detected on CT Images: From the Fleischner Society 2017. Radiology. 2017;284(1):228-243. Eight Laboratory Results WBC 9.69 10^3/uL (3.29-11.43) 10/28/23 04:30 RBC 4.52 10^6/uL (3.85-5.65) 10/28/23 04:30 Hgb 13.90 g/dL (11.27-16.99) 10/28/23 04:30 Hct 40.5 % (36-47) 10/28/23 04:30 MCV 89.6 fl (85-98) 10/28/23 04:30 MCH 30.8 pg (27-33) 10/28/23 04:30 MCHC 34.3 g/dL (30-55) 10/28/23 04:30 RDW 14.6 % (12.1-15.1) 10/28/23 04:30 Plt Count 226 10^3/cmm (157-399) 10/28/23 04:30 MPV 9.2 fL (7.4-10.4) 10/28/23 04:30 Neut % (Auto) 66.3 % 10/28/23 04:30 Lymph % (Auto) 21.6 % 10/28/23 04:30 Mccracken % (Auto) 10.2 % 10/28/23 04:30 Eos % (Auto) 0.9 % 10/28/23 04:30 Baso % (Auto) 0.2 % 10/28/23 04:30 Neut # (Auto) 6.42 10^3/uL (1.8-7.7) 10/28/23 04:30 Lymph # (Auto) 2.1 10^3/uL (0.8-4.8) 10/28/23 04:30 Mccracken # (Auto) 1.0 10^3/uL (0.2-0.9) H 10/28/23 04:30 Eos # (Auto) 0.1 10^3/uL (0.0-0.8) 10/28/23 04:30 Baso # (Auto) 0.0 10^3/uL (0.0-0.1) 10/28/23 04:30 Nucleated RBC % (auto) 0 % 10/28/23 04:30 Nucleated RBCs # 0.0 /100WBC 10/28/23 04:30 APTT 22.7 SECONDS (23.9-36.7) L 10/28/23 04:54 D-Dimer 3.72 ug/mLFEU (0-0.59) H 10/28/23 04:54 Sodium 133 mmol/L (136-145) L 10/28/23 04:54 Potassium 4.1 mmol/L (3.5-5.1) 10/28/23 04:54 Chloride 96 mmol/L (98-107) L 10/28/23 04:54 Carbon Dioxide 27 mmol/L (22-29) 10/28/23 04:54 Anion Gap 14.1 (5-19) 10/28/23 04:54 BUN 24 mg/dL (8-23) H 10/28/23 04:54 Creatinine 1.0 mg/dL (0.5-0.9) H 10/28/23 04:54 GFR Calculation 55.8 mL/min (90-130) L 10/28/23 04:54 Glucose 91 mg/dL (65-115) 10/28/23 04:54 Calculated Osmolality 280 mOsm/kg (285-295) L 10/28/23 04:54 Calcium 9.2 mg/dL (8.5-10.5) 10/28/23 04:54 Total Bilirubin 0.2 mg/dL (0.15-1.2) 10/28/23 04:54 AST 15 U/L (0-32) 10/28/23 04:54 ALT 16 U/L (0-33) 10/28/23 04:54 Alkaline Phosphatase 66 U/L (35-105) 10/28/23 04:54 Troponin T Baseline 102 ng/L (0-10) H* 10/28/23 04:30 Troponin T 120 Minute 95.70 ng/L (0-10) H 10/28/23 06:27 Delta Troponin T -6.30 ABS# (0-10) L 10/28/23 06:27 NT-Pro-B Natriuret Pep 330 pg/mL (0-125) H 10/28/23 04:56 Total Protein 6.9 g/dL (6.6-8.7) 10/28/23 04:54 Albumin 3.7 g/dL (3.5-5.2) 10/28/23 04:54 Globulin 3.2 g/dL (1.3-4.6) 10/28/23 04:54 Lipase 17 U/L (13-60) 10/28/23 04:54 All radiology interpretation(s) finalized by discharge EKG Data EKG 1: I personally reviewed and interpreted this EKG as follows: EKG Interpretation Date: 10/28/23 EKG interpretation time: 04:15 Interpretation: nsr hr [address] or t wave abnormalities qrs 84 qtc 382 Discharge Plan Discharge Patient Disposition: Admitted As Inpatient Clinical Impression: Pulmonary embolism, Elevated troponin I level Condition: Stable Prescriptions: No Action tolterodine 4 mg capsule,extended release 24hr 4 mg PO DAILY Qty: 30 12RF albuterol sulfate 2.5 mg /3 mL (0.083 %) solution for nebulization 2.5 mg inhalation Q4H PRN (Reason: shortness of breath or wheezing) Qty: 360 3RF benzonatate 100 mg capsule 100 mg PO TID PRN (Reason: cough) Qty: 45 0RF losartan 50 mg tablet 50 mg PO DAILY Qty: 90 2RF Depakote 500 mg tablet,delayed release (DR/EC) 500 mg PO DAILY@0800 Qty: 30 3RF fluoxetine 40 mg capsule 80 mg PO DAILY@0800 Qty: 60 3RF nystatin 100,000 unit/mL suspension 500,000 unit PO Q6H Qty: 473 1RF Rx Instructions: Swish in mouth for 2 minutes and then swallow - Until better prednisone 20 mg tablet 40 mg PO DAILY 10 Days Qty: 20 0RF budesonide-formoterol [Symbicort] 80-4.5 mcg/actuation HFA aerosol inhaler 2 puff inhalation BID Qty: 10.2 3RF carvedilol 12.5 mg tablet 12.5 mg PO BID Qty: 180 3RF Rx Instructions: must administer with a meal/food potassium chloride 10 mEq tablet extended release See Rx Instructions .ROUTE .COMPLEX Qty: 90 3RF Dose Instruction: TAKE 1 TABLET BY MOUTH ONCE A DAY WHEN TAKING LASIX Rx Instructions: TAKE 1 TABLET BY MOUTH ONCE A DAY WHEN TAKING LASIX albuterol sulfate 90 mcg/actuation HFA aerosol inhaler 2 inh inhalation Q4H PRN (Reason: shortness of breath or wheezing) Qty: 8.5 6RF cholecalciferol (vitamin D3) [Vitamin D3] 50 mcg (2,000 unit) Tablet 50 mcg PO DAILY@0800 omega 8-zyw-pjy-fish oil [Fish Oil] 300-1,000 mg Capsule 1 cap PO DAILY@0800 oxycodone 10 mg tablet 10 mg PO Q4H PRN (Reason: Pain) amantadine HCl 100 mg tablet 100 mg PO BID omeprazole 40 mg capsule,delayed release(DR/EC) 40 mg PO QAM levothyroxine 50 mcg tablet 50 mcg PO QAM Rx Instructions: 30 MINUTES PRIOR TO BREAKFAST. TAKE WITH WATER ONLY. hydrochlorothiazide 25 mg tablet 25 mg PO DAILY alfuzosin 10 mg tablet extended release 24 hr 10 mg PO DAILY Referrals: Darell Orourke MD [Primary Care Provider] - Sign Out Sign Out Data: Patient Sign Out occurred on 10/28/23 at 06:24. Patient's care was discussed, and care was transferred from Honey Montero MD to Cholo Dodson DO. Coding Level of Care Code ED Technical Expert for Chg Fwd Documented by User: Cholo Dodson DO 10/28/23 08:12 HPI - SOB/Dyspnea 2 General: Chief Complaint: Shortness of Breath/Dyspnea Stated Complaint: Side pain,SOB Time Seen by Provider: 10/28/23 04:15 PFSH ED 2 PFSH: Medical History DARON on CPAP Psychiatric care Incomplete bladder emptying Genital atrophy of female Urgency of urination Moderate episode of recurrent major depressive disorder Cystitis cystica Recurrent UTI Obstructive sleep apnea (adult) (pediatric) Nicotine dependence, cigarettes, with other nicotine-induced disorders Major depressive disorder, single episode, unspecified Post-traumatic stress disorder, chronic Major depressive disorder, recurrent, mild Surgical History H/O: hysterectomy H/O shoulder surgery S/P carpal tunnel release S/P appendectomy Rectovaginal fistula repaired June 2018 Family History Mother , 66 Cancer Hypertension Father , 62 Cancer lung CAD (coronary artery disease) Social History Smoking and tobacco/nicotine status: current every day tobacco/nicotine user cigarettes Packs smoked per day: 1 Years cigarettes smoked: 46 [ Other cigarette details: started at age 14 years] Second hand smoke exposure: Yes Alcohol intake: never Substance/Drug Use: never Lives independently: Yes Household members: none Marital status: Current occupational status: disabled Do you think of yourself as: Straight/Heterosexual Current gender identity: Female Course 2 Vital Signs: Vital signs: Vital Signs Temperature 97.7 F 10/28/23 04:13 Pulse Rate 70 10/28/23 07:00 Respiratory Rate 21 H 10/28/23 07:00 Blood Pressure 141/89 10/28/23 07:00 Pulse Oximetry 93 10/28/23 07:00 Oxygen Delivery Me thod Room Air 10/28/23 05:17 MDM - SOB/Dyspnea Medical Decision Making Care assumed from Dr. Montero at change of shift. Chart reviewed discussed with Dr. Walker. Patient is elevated troponin on presentation no acute changes on EKG second troponin slightly decreased D-dimer elevated CTA shows right upper lobe pulmonary embolism. Patient not on any anticoagulation. Started on heparin will admit for further workup for coronary disease and evaluation for right heart strain. Patient is noted to have arteriosclerotic changes in her coronary arteries on the CT no definitive right heart strain on the CTA. Discussed Dr. Bray orders written Lab Data 10/28/23 04:30 10/28/23 04:54 Labs/Radiology: Radiology Impressions Chest X-Ray 10/28/23 04:21 IMPRESSION: No acute cardiopulmonary process. Chest CTA 10/28/23 05:23 IMPRESSION: 1. Nonocclusive pulmonary artery filling defects versus flow related artifact within right pulmonary artery superior trunk, with extension of possible filling defects into the apical and anterior branches. No evidence of right heart strain. Findings discussed with at 7:41 a.m. on 10/28/2023. 2. Unchanged pulmonary nodules as above. Consider follow-up per Fleischner society protocol.For patients at low risk (minimal or absent history of smoking and of other known risk factors), no routine follow-up is indicated. For patients at high risk (history of smoking or of other known risk factors), consider optional CT Chest at 12 months. (Reference: Renee) 3. Small pericardial effusion. Partially assessed 9 mm right hepatic hypodensity as described Mid esophageal wall thickening as described. Other chronic/ incidental findings as above. REFERENCES: Kevonhoromel H, et al. Guidelines for Management of Incidental Pulmonary Nodules Detected on CT Images: From the Fleischner Society 2017. Radiology. 2017;284(1):228-243. Eight Laboratory Results WBC 9.69 10^3/uL (3.29-11.43) 10/28/23 04:30 RBC 4.52 10^6/uL (3.85-5.65) 10/28/23 04:30 Hgb 13.90 g/dL (11.27-16.99) 10/28/23 04:30 Hct 40.5 % (36-47) 10/28/23 04:30 MCV 89.6 fl (85-98) 10/28/23 04:30 MCH 30.8 pg (27-33) 10/28/23 04:30 MCHC 34.3 g/dL (30-55) 10/28/23 04:30 RDW 14.6 % (12.1-15.1) 10/28/23 04:30 Plt Count 226 10^3/cmm (157-399) 10/28/23 04:30 MPV 9.2 fL (7.4-10.4) 10/28/23 04:30 Neut % (Auto) 66.3 % 10/28/23 04:30 Lymph % (Auto) 21.6 % 10/28/23 04:30 Mccracken % (Auto) 10.2 % 10/28/23 04:30 Eos % (Auto) 0.9 % 10/28/23 04:30 Baso % (Auto) 0.2 % 10/28/23 04:30 Neut # (Auto) 6.42 10^3/uL (1.8-7.7) 10/28/23 04:30 Lymph # (Auto) 2.1 10^3/uL (0.8-4.8) 10/28/23 04:30 Mccracken # (Auto) 1.0 10^3/uL (0.2-0.9) H 10/28/23 04:30 Eos # (Auto) 0.1 10^3/uL (0.0-0.8) 10/28/23 04:30 Baso # (Auto) 0.0 10^3/uL (0.0-0.1) 10/28/23 04:30 Nucleated RBC % (auto) 0 % 10/28/23 04:30 Nucleated RBCs # 0.0 /100WBC 10/28/23 04:30 APTT 22.7 SECONDS (23.9-36.7) L 10/28/23 04:54 D-Dimer 3.72 ug/mLFEU (0-0.59) H 10/28/23 04:54 Sodium 133 mmol/L (136-145) L 10/28/23 04:54 Potassium 4.1 mmol/L (3.5-5.1) 10/28/23 04:54 Chloride 96 mmol/L (98-107) L 10/28/23 04:54 Carbon Dioxide 27 mmol/L (22-29) 10/28/23 04:54 Anion Gap 14.1 (5-19) 10/28/23 04:54 BUN 24 mg/dL (8-23) H 10/28/23 04:54 Creatinine 1.0 mg/dL (0.5-0.9) H 10/28/23 04:54 GFR Calculation 55.8 mL/min (90-130) L 10/28/23 04:54 Glucose 91 mg/dL (65-115) 10/28/23 04:54 Calculated Osmolality 280 mOsm/kg (285-295) L 10/28/23 04:54 Calcium 9.2 mg/dL (8.5-10.5) 10/28/23 04:54 Total Bilirubin 0.2 mg/dL (0.15-1.2) 10/28/23 04:54 AST 15 U/L (0-32) 10/28/23 04:54 ALT 16 U/L (0-33) 10/28/23 04:54 Alkaline Phosphatase 66 U/L (35-105) 10/28/23 04:54 Troponin T Baseline 102 ng/L (0-10) H* 10/28/23 04:30 Troponin T 120 Minute 95.70 ng/L (0-10) H 10/28/23 06:27 Delta Troponin T -6.30 ABS# (0-10) L 10/28/23 06:27 NT-Pro-B Natriuret Pep 330 pg/mL (0-125) H 10/28/23 04:56 Total Protein 6.9 g/dL (6.6-8.7) 10/28/23 04:54 Albumin 3.7 g/dL (3.5-5.2) 10/28/23 04:54 Globulin 3.2 g/dL (1.3-4.6) 10/28/23 04:54 Lipase 17 U/L (13-60) 10/28/23 04:54 Discharge Plan Discharge Patient Disposition: Admitted As Inpatient Clinical Impression: Pulmonary embolism, Elevated troponin I level Condition: Stable Prescriptions: No Action tolterodine 4 mg capsule,extended release 24hr 4 mg PO DAILY Qty: 30 12RF albuterol sulfate 2.5 mg /3 mL (0.083 %) solution for nebulization 2.5 mg inhalation Q4H PRN (Reason: shortness of breath or wheezing) Qty: 360 3RF benzonatate 100 mg capsule 100 mg PO TID PRN (Reason: cough) Qty: 45 0RF losartan 50 mg tablet 50 mg PO DAILY Qty: 90 2RF Depakote 500 mg tablet,delayed release (DR/EC) 500 mg PO DAILY@0800 Qty: 30 3RF fluoxetine 40 mg capsule 80 mg PO DAILY@0800 Qty: 60 3RF nystatin 100,000 unit/mL suspension 500,000 unit PO Q6H Qty: 473 1RF Rx Instructions: Swish in mouth for 2 minutes and then swallow - Until better prednisone 20 mg tablet 40 mg PO DAILY 10 Days Qty: 20 0RF budesonide-formoterol [Symbicort] 80-4.5 mcg/actuation HFA aerosol inhaler 2 puff inhalation BID Qty: 10.2 3RF carvedilol 12.5 mg tablet 12.5 mg PO BID Qty: 180 3RF Rx Instructions: must administer with a meal/food potassium chloride 10 mEq tablet extended release See Rx Instructions .ROUTE .COMPLEX Qty: 90 3RF Dose Instruction: TAKE 1 TABLET BY MOUTH ONCE A DAY WHEN TAKING LASIX Rx Instructions: TAKE 1 TABLET BY MOUTH ONCE A DAY WHEN TAKING LASIX albuterol sulfate 90 mcg/actuation HFA aerosol inhaler 2 inh inhalation Q4H PRN (Reason: shortness of breath or wheezing) Qty: 8.5 6RF cholecalciferol (vitamin D3) [Vitamin D3] 50 mcg (2,000 unit) Tablet 50 mcg PO DAILY@0800 omega 7-bbu-xia-fish oil [Fish Oil] 300-1,000 mg Capsule 1 cap PO DAILY@0800 oxycodone 10 mg tablet 10 mg PO Q4H PRN (Reason: Pain) amantadine HCl 100 mg tablet 100 mg PO BID omeprazole 40 mg capsule,delayed release(DR/EC) 40 mg PO QAM levothyroxine 50 mcg tablet 50 mcg PO QAM Rx Instructions: 30 MINUTES PRIOR TO BREAKFAST. TAKE WITH WATER ONLY. hydrochlorothiazide 25 mg tablet 25 mg PO DAILY alfuzosin 10 mg tablet extended release 24 hr 10 mg PO DAILY Referrals: Darell Orourke MD [Primary Care Provider] - Sign Out Sign Out Data: Patient Sign Out occurred on 10/28/23 at 06:24. Patient's care was discussed, and care was transferred from Honey Montero MD to Cholo Dodson DO. Coding Level of Care Code ED Technical Expert for Susan Sanz
[2023-10-28 04:35] LABS: Basophils % 0.2 %; Eosinophils # 0.1 10^3/uL (0.0-0.8); Eosinophils % 0.9 %; Hematocrit 40.5 % (36-47); Lymphocytes # 2.1 10^3/uL (0.8-4.8); Lymphocytes % 21.6 %; Mean Corpuscular HGB Conc 34.3 g/dL (30-55); Mean Corpuscular Hemoglobin 30.8 pg (27-33); Mean Corpuscular Volume 89.6 fl (85-98); Mean Platelet Volume 9.2 fL (7.4-10.4); Monocytes % 10.2 %; Neutrophils # 6.42 10^3/uL (1.8-7.7); Neutrophils % 66.3 %; Nucleated Red Blood Cells % 0 %; Platelet Count 226 10^3/cmm (157-399); Red Blood Count 4.52 10^6/uL (3.85-5.65); Red Cell Distribution Width 14.6 % (12.1-15.1); White Blood Count 9.69 10^3/uL (3.29-11.43)
[2023-10-28] MEDS: ipratropium 0.5 mg/2.5 mL Neb INHALATION (04:36)
[2023-10-28] MEDS: ondansetron 2 mg/ML SDV 2 mL 4 MG IVP (04:37)
[2023-10-28] MEDS: methylPREDNISolone sod succ 125 mg/2 mL INJ IV (04:37)
[2023-10-28] MEDS: morphine 4 mg/mL SDV 1 mL IVP (04:37)
[2023-10-28 04:58] LABS: Troponin(5th) Baseline 102 ng/L (0-10)
[2023-10-28 05:18] LABS: D Dimer 3.72 ug/mLFEU (0-0.59)
[2023-10-28 05:23] LABS: Alanine Aminotransferase 16 U/L (0-33); Albumin Level 3.7 g/dL (3.5-5.2); Alkaline Phosphatase 66 U/L (35-105); Anion Gap 14.1 (5-19); Aspartate Amino Transferase 15 U/L (0-32); Blood Urea Nitrogen 24 mg/dL (8-23); Calcium 9.2 mg/dL (8.5-10.5); Carbon Dioxide 27 mmol/L (22-29); Chloride 96 mmol/L (98-107); Creatinine Clr Calc Pharmacy 65.6501; Globulin 3.2 g/dL (1.3-4.6); Glomerular Filtration Rate 55.8 mL/min (90-130); Glucose 91 mg/dL (65-115); Lipase 17 U/L (13-60); Osmolality Calculated 280 mOsm/kg (285-295); Potassium 4.1 mmol/L (3.5-5.1); Sodium 133 mmol/L (136-145); Total Bilirubin 0.2 mg/dL (0.15-1.2); Total Protein 6.9 g/dL (6.6-8.7)
--- NOTE | 2023-10-28 05:23 | CTR_ITS ---
PROCEDURE INFORMATION: Exam: CTA Chest With Contrast Exam date and time: 10/28/2023 5:34 AM Age: 63 years old Clinical indication: Angina and shortness of breath; Additional info: SOB TECHNIQUE: Imaging protocol: Computed tomographic angiography of the chest with contrast. Exam focused on the arteries. 3D rendering (Not supervised by radiologist): MIP and/or 3D reconstructed images were created by the technologist. Radiation optimization: All CT scans at this facility use at least one of these dose optimization techniques: automated exposure control; mA and/or kV adjustment per patient size (includes targeted exams where dose is matched to clinical indication); or iterative reconstruction. Contrast material: OMNI 350; Contrast volume: 68 ml; Contrast route: INTRAVENOUS (IV); COMPARISON: CT angio chest PE protcl [id number] 12/13/2020 3:34 PM RADIATION DOSE METRICS: Total DLP (mGy-cm): 461.9 FINDINGS: Pulmonary arteries: Nonocclusive pulmonary artery filling defects versus flow related artifact within right pulmonary artery superior trunk, with extension of possible filling defects into the apical and anterior branches. Aorta: Ascending thoracic aorta is upper limits of normal in size measuring 40 mm diameter. Lungs: 5 mm discoid nodule along the right minor fissure likely represents benign lymph node. Unchanged elongated 5 mm pleural-based posterior RUL nodule adjacent mild pleural thickening, as seen on series . Multiple sub 3 mm bilateral pulmonary nodules are unchanged in size and number. Subtle RUL patchy ground-glass opacity along the major fissure and at the periphery right apex likely represents atelectasis. No suspicious pulmonary nodules. Pleural spaces: No pneumothorax. Heart: Mild fluid within pericardial recesses. Heart size normal. Small pericardial effusion. No findings of right heart strain. RV/LV ratio is 0.9, within normal limits. Coronary arteries: Prominent coronary artery atheromatous calcifications Esophagus: Suggestion of mid esophageal wall thickening; differential diagnosis for this appearance includes inflammatory/infectious and neoplastic etiologies. Follow-up as clinically indicated. Lymph nodes: Shotty axillary and mediastinal nodes. No thoracic adenopathy. Liver: Mild hepatomegaly. 9 mm peripheral right hepatic lobe hypodensity may represent a cyst versus hemangioma. Consider nonemergent ultrasound follow-up for further characterization Gallbladder and bile ducts: Cholecystectomy clips. Pancreas: Pancreatic atrophy Spleen: Splenic granulomata. Bones/joints: Unremarkable. No acute fracture. Soft tissues: Unremarkable. CT/CT angio chest PE protcl [id number] IMPRESSION: 1. Nonocclusive pulmonary artery filling defects versus flow related artifact within right pulmonary artery superior trunk, with extension of possible filling defects into the apical and anterior branches. No evidence of right heart strain. Findings discussed with at 7:41 a.m. on 10/28/2023. 2. Unchanged pulmonary nodules as above. Consider follow-up per Fleischner society protocol.For patients at low risk (minimal or absent history of smoking and of other known risk factors), no routine follow-up is indicated. For patients at high risk (history of smoking or of other known risk factors), consider optional CT Chest at 12 months. (Reference: Renee) 3. Small pericardial effusion. Partially assessed 9 mm right hepatic hypodensity as described Mid esophageal wall thickening as described. Other chronic/ incidental findings as above. REFERENCES: Renee H, et al. Guidelines for Management of Incidental Pulmonary Nodules Detected on CT Images: From the Fleischner Society 2017. Radiology. 2017;284(1):228-243. Eight
[2023-10-28] MEDS: iohexol 350 mg/mL 500 mL Btl (per mL) IV (05:46)
[2023-10-28 05:56] LABS: NT Pro B Type Natriuretic Pept 330 pg/mL (0-125)
[2023-10-28] MEDS: heparin 5,000 unit/mL INJ 1 mL IV (06:47)
[2023-10-28 06:51] LABS: Partial Thromboplastin Time 22.7 SECONDS (23.9-36.7)
[2023-10-28] MEDS: heparin drip 25,000 UNIT/500 ML PREMIX 29.2100000000000009 UNIT IV (06:51)
--- NOTE | 2023-10-28 07:14 | ECG_ITS ---
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 Measurements Intervals [place] Rate: 70 P: 37 MI: 164 QRS: 20 QRSD: 94 T: 54 QT: 379 QTc: 409 Interpretive Statements SINUS RHYTHM POSSIBLE LEFT ATRIAL ENLARGEMENT [-0.1mV P-WAVE IN V1/V2] NONSPECIFIC T-WAVE ABNORMALITY Compared to ECG 10/28/2023 04:15:14 T-wave abnormality now present Electronically Signed On 10-28-2023 23:11:06 CDT by Marie Floers M.D. [id number]
--- NOTE | 2023-10-28 09:34 | P.HP_ITS ---
Providers/Chief Complaint 2 Admitting Physician: Ta Bray MD Primary Care Provider: Darell Orourke MD Chief Complaint: Side pain,SOB History of Present Illness Jasmin Villalobos is a 63 year old female with past medical history of PTSD, depression, obstructive sleep apnea, COPD, chronic smoker, morbid obesity who presented to the ER last night with complaints of difficulty in breathing getting worse over the last 3 weeks along with left-sided chest pain which she thought was under her ribs getting worse for last 2 to 3 days. Shortness of breath gets worse on ambulation. Is not associated with orthopnea or PND. Complaining of cough at baseline. In the ER patient was found to have elevated D-dimer and subsequently was found to have a right upper lobe PE along with elevated troponin levels hence hospital service was consulted. Review of Systems 2 General: Reports: 10 or more systems reviewed and unremarkable except in HPI and below Const: Denies: fever(s), chills, body aches, change in appetite, change in weight, malaise, night sweats, diaphoresis, change in sleep pattern, daytime sleepiness or snoring Eyes: Denies: change in vision, blurry vision, photophobia, eye discomfort or eye discharge ENMT: Denies: throat pain, enlarged tonsils, hoarseness, mouth pain, oral sores, dry mouth, tinnitus, nasal congestion or post nasal drip Card: Denies: chest pain, palpitations, irregular heart rhythm, edema, swelling of feet/ankles, lightheadedness, syncope, pre-syncope, dyspnea on exertion, orthopnea, leg pain with exertion or acrocyanosis Resp: Denies: dyspnea, productive cough, non-productive cough, wheezing, stridor, pain on inspiration, change in phlegm color, hemoptysis or chest congestion GI: Denies: abdominal pain, nausea, vomiting, hematemesis, coffee ground emesis, dysphagia, heartburn, diarrhea, constipation, bloating, GI cramping, change in bowel habits, pain on defecation, hematochezia or melena : Denies: flank pain, dysuria, urinary frequency, urinary urgency, urinary hesitancy, nocturia or hematuria Musc: Denies: neck pain, back pain, extremity pain, joint pain, joint swelling, joint redness, joint stiffness or limited range of motion Neuro: Denies: headache(s), numbness in extremities, weakness in extremities, sensory changes, lack of coordination, difficulty walking, frequent falls, dizziness, vertigo, confusion, Slurred speech present, difficulty communicating thoughts or seizure-like activity Psych: Denies: anxiety, depression, mood swings, panic attacks, hopelessness or irritability Endo: Denies: polyuria, polydipsia, tired all the time, cold intolerance, excessive sweating, flushing or heat intolerance Flash/Lymph: Denies: easy bruising or easy bleeding All/Imm: Denies: tongue swelling, facial swelling or acute wheezing Medications/Allergies Home Medications Medication Instructions Recorded Confirmed Last Taken Type cholecalciferol (vitamin D3) 50 50 mcg PO DAILY@0800 02/05/20 10/28/23 10/27/23 History mcg (2,000 unit) tablet (Vitamin D3) omega 3-cxv-lfn-fish oil 300 1 cap PO DAILY@0800 02/05/20 10/28/23 10/27/23 History mg-1,000 mg capsule (Fish Oil) tolterodine 4 mg capsule,extended 4 mg PO DAILY #30 caps 05/18/22 10/28/23 10/27/23 Rx release 24 hr carvedilol 12.5 mg tablet 12.5 mg PO BID #180 tabs 02/18/23 10/28/23 10/27/23 Rx potassium chloride 10 mEq See Rx Instructions .Route 04/12/23 10/28/23 Unknown Rx tablet,extended release .COMPLEX #90 tabs albuterol sulfate 90 mcg/actuation 2 inh inhalation Q4H PRN shortness 04/26/23 10/28/23 Unknown Rx aerosol inhaler of breath or wheezing #8.5 grams losartan 50 mg tablet 50 mg PO DAILY #90 tabs 07/20/23 10/28/23 10/27/23 Rx divalproex 500 mg tablet,delayed 500 mg PO DAILY@0800 #30 tabs 09/03/23 10/28/23 10/27/23 Rx release (Depakote) fluoxetine 40 mg capsule 80 mg (2 x 40 mg) PO DAILY@0800 09/03/23 10/28/23 10/27/23 Rx #60 caps albuterol sulfate 2.5 mg/3 mL 2.5 mg (3 mL) inhalation Q4H PRN 10/06/23 10/28/23 Unknown Rx (0.083 %) solution for nebulization shortness of breath or wheezing #360 mL benzonatate 100 mg capsule 100 mg PO TID PRN cough #45 caps 10/06/23 10/28/23 Unknown Rx budesonide-formoterol HFA 80 2 puff inhalation BID #10.2 grams 10/25/23 10/28/23 10/27/23 Rx mcg-4.5 mcg/actuation aerosol inhaler (Symbicort) nystatin 100,000 unit/mL oral 500,000 unit (5 mL) PO Q6H #473 mL 10/25/23 10/28/23 10/27/23 Rx suspension prednisone 20 mg tablet 40 mg (2 x 20 mg) PO DAILY 10 days 10/25/23 10/28/23 10/27/23 Rx #20 tabs alfuzosin 10 mg tablet,extended 10 mg PO DAILY 10/28/23 10/28/23 10/27/23 History release 24 hr amantadine HCl 100 mg tablet 100 mg PO BID 10/28/23 10/28/23 10/27/23 History hydrochlorothiazide 25 mg tablet 25 mg PO DAILY 10/28/23 10/28/23 10/27/23 History levothyroxine 50 mcg tablet 50 mcg PO QAM 10/28/23 10/28/23 10/27/23 History omeprazole 40 mg capsule,delayed 40 mg PO QAM 10/28/23 10/28/23 10/27/23 History release oxycodone 10 mg tablet 10 mg PO Q4H PRN Pain 10/28/23 10/28/23 10/27/23 History Allergies Allergy/AdvReac Type Severity Reaction Status Date / Time acetaminophen [From Tylenol] Allergy ADR-Migrain Verified 10/28/23 04:18 e doxycycline Allergy Unknown Verified 10/28/23 04:18 gabapentin Allergy unknown Verified 10/28/23 04:18 ibuprofen Allergy ADR-Migrain Verified 10/28/23 04:18 e pregabalin [From Lyrica] Allergy unknown Verified 10/28/23 04:18 Sulfa (Sulfonamide Allergy Unknown Verified 10/28/23 04:18 Antibiotics) sulfamethoxazole Allergy ADR-Swelling Verified 10/28/23 04:18 [From Bactrim] of the Eye trimethoprim [From Bactrim] Allergy ADR-Swelling Verified 10/28/23 04:18 of the Eye PFSH Acute 2 PFSH: Medical History DARON on CPAP Psychiatric care Incomplete bladder emptying Genital atrophy of female Urgency of urination Moderate episode of recurrent major depressive disorder Cystitis cystica Recurrent UTI Obstructive sleep apnea (adult) (pediatric) Nicotine dependence, cigarettes, with other nicotine-induced disorders Major depressive disorder, single episode, unspecified Post-traumatic stress disorder, chronic Major depressive disorder, recurrent, mild Surgical History H/O: hysterectomy H/O shoulder surgery S/P carpal tunnel release S/P appendectomy Rectovaginal fistula repaired June 2018 Family History Mother , 66 Cancer Hypertension Father , 62 Cancer lung CAD (coronary artery disease) Social History Smoking and tobacco/nicotine status: current every day tobacco/nicotine user cigarettes Packs smoked per day: 1 Years cigarettes smoked: 46 [ Other cigarette details: started at age 14 years] Second hand smoke exposure: Yes Alcohol intake: never Substance/Drug Use: never Lives independently: Yes Household members: none Marital status: Current occupational status: disabled Do you think of yourself as: Straight/Heterosexual Current gender identity: Female Vitals/I&O/Wt Last Vital Signs Temp 97.7 F 10/28/23 04:13 Pulse 70 10/28/23 09:00 Resp 21 H 10/28/23 07:00 BP 151/93 10/28/23 09:00 Pulse Ox 91 10/28/23 09:00 O2 Del Method Room Air 10/28/23 05:17 Weight last 48 hrs Weight 104.326 kg Physical Exam 2 Narrative: General: No acute distress, AO x3, anxious HEENT: PERRLA, pupils bilaterally equal and reactive Chest: Bilateral bronchial breath sounds all over lung samson with occasional rhonchi fine crackles CVS: S1-S2 regular, no murmurs, no tachycardia, no gallops, no rubs Abdomen: Soft, nontender, no organomegaly, bowel sounds present Neuro: No focal deficits, no facial deformity, AO x3, power 5/5 in all limbs Data 10/28/23 04:30 10/28/23 04:54 A&P Assessment and plan (1) Shortness of breath: Most likely is a combination of COPD and sleep apnea getting exacerbated with pulmonary embolism. Ox supplementation keeping saturation over 90%. Pulmicort twice daily, DuoNebs every 6 hour. (2) Pulmonary embolism: Seen on CTA. Troponin elevated. Concern for possible right heart strain. Check echocardiogram. Continue with heparin drip. Will plan to transition over to oral Eliquis for 10 mg twice daily for 7 days followed by 5 mg twice daily on discharge. Monitor PTT every 4 hours implicated with 2 days while being on heparin drip. (3) Elevated troponin: Most likely in setting of type II [place] due to pulmonary embolism. Echocardiogram as above. Cycle troponins. If troponins downtrending patient would benefit from stress test as an outpatient once medically stable from pulmonary embolism in next 3 to 4 weeks. Check A1c, lipid panel. Start on aspirin and statins accordingly. (4) COPD exacerbation: (5) Obstructive sleep apnea (adult) (pediatric): (6) Nicotine addiction: Qualifiers: Nicotine product type: cigarettes Substance use status: uncomplicated Qualified Code(s): F17.210 - Nicotine dependence, cigarettes, uncomplicated Plan Hypertension: Goal blood pressure less than 140/90 mmHg. Continue to monitor blood pressures. For now continue with home dose of Coreg, losartan. Continue other chronic medications. Full code Cardiac diet Protonix for PUD prophylaxis Heparin drip to be sufficient for DVT prophylaxis. Attestations 2 Medical Necessity Statement*: Admission under observation for management of pulmonary embolism with concerns for right heart strain leading to shortness of breath, elevated troponins in a patient with baseline history of COPD, obstructive sleep apnea Diagnoses Shortness of breath R06.02 Pulmonary embolism I26.99 Elevated troponin R79.89 COPD exacerbation J44.1 Obstructive sleep apnea (adult) (pediatric) G47.33 Cigarette nicotine dependence without complication F17.210 Nicotine product type: cigarettes Substance use status: uncomplicated
--- NOTE | 2023-10-28 10:21 | ECG_ITS ---
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 Measurements Intervals [place] Rate: 67 P: 49 DC: 176 QRS: 29 QRSD: 92 T: 60 QT: 386 QTc: 410 Interpretive Statements SINUS RHYTHM NONSPECIFIC T-WAVE ABNORMALITY Compared to ECG 10/28/2023 07:14:00 No significant changes Electronically Signed On 10-28-2023 23:12:37 CDT by Marie Flores M.D. [id number]
[2023-10-28 10:54] LABS: Iron 47 ug/dL (37-145); Percent Saturation 15.2 % (20-50); Thyroid Stimulating Hormone 1.84 uIU/mL (0.27-4.20); Total Iron Binding Capacity 308 mcg/dl; Unsaturated Iron Binding 261 ug/dL (112-347); Vitamin B12 511 pg/mL (232-1245)
[2023-10-28 11:25] LABS: Troponin 5 6HR 67.27 ng/L (0-10)
[2023-10-28 11:26] LABS: Troponin 5 6HR Delta -34.73 ng/L (0-12)
[2023-10-28] MEDS: losartan 50 mg Tablet PO (11:59)
[2023-10-28] MEDS: pantoprazole DR 40 mg Tablet PO (12:00)
[2023-10-28 12:25] LABS: Add Urine Microscopic? NO; Charge for UA Resulting for Rev
[2023-10-28 12:48] LABS: Bilirubin Urine Neg (Negative); Blood Urine Neg (Negative); Glucose Urine UA Norm (Normal); Ketones Urine Negative (Negative); Leukocyte Esterase Urine Negative (Negative); Nitrate Urine Negative (Negative); Protein Urine Neg (Negative); Specific Gravity, Urine 1.015 (1.005-1.030); Urine Appearance Clear (CLEAR); Urine Color Light yellow (Yellow); Urobilinogen Urine Norm (Negative); pH Urine 6.5 (5-7)
[2023-10-28 12:52] LABS: Partial Thromboplastin Time 105.6 SECONDS (23.9-36.7)
[2023-10-28] MEDS: ipratropium-albuterol 3 mL Neb INHALATION ×2 (14:38→20:41)
[2023-10-28] MEDS: oxyCODONE 5 mg IR Tab/Cap 10 MG PO ×2 (15:12→21:57)
[2023-10-28] MEDS: carvedilol 12.5 mg Tablet PO (17:43)
[2023-10-28] MEDS: budesonide 0.5 mg/2 mL Neb INHALATION (20:41)
[2023-10-28 20:57] LABS: Partial Thromboplastin Time 81.4 SECONDS (23.9-36.7)
[2023-10-28] MEDS: morphine 4 mg/mL SDV 1 mL 2 MG IVP (23:11)
[2023-10-29] VITALS (14 sets, daily range): BP systolic 122–157; BP diastolic 79–85; PULSE 57–65; RESP 16–33; TEMP 36.4–36.9; O2SAT 91–100; BMI 42.9
[2023-10-29] MEDS: oxyCODONE 5 mg IR Tab/Cap 10 MG PO ×2 (02:04→09:14)
[2023-10-29] MEDS: heparin drip 25,000 UNIT/500 ML PREMIX 22 UNIT IV (02:04)
[2023-10-29] MEDS: ipratropium-albuterol 3 mL Neb INHALATION ×2 (02:23→08:30)
[2023-10-29] MEDS: morphine 4 mg/mL SDV 1 mL 2 MG IVP (03:25)
[2023-10-29 04:15] LABS: Basophils % 0.2 %; Eosinophils % 0.4 %; Hematocrit 39.6 % (36-47); Lymphocytes % 19.3 %; Mean Corpuscular HGB Conc 33.6 g/dL (30-55); Mean Corpuscular Hemoglobin 30.6 pg (27-33); Mean Platelet Volume 8.9 fL (7.4-10.4); Monocytes % 9.3 %; Neutrophils # 7.35 10^3/uL (1.8-7.7); Neutrophils % 70.3 %; Nucleated Red Blood Cells % 0 %; Platelet Count 199 10^3/cmm (157-399); Red Blood Count 4.35 10^6/uL (3.85-5.65); Red Cell Distribution Width 14.6 % (12.1-15.1); White Blood Count 10.45 10^3/uL (3.29-11.43)
[2023-10-29 04:29] LABS: Partial Thromboplastin Time 45.5 SECONDS (23.9-36.7)
[2023-10-29 04:32] LABS: Alanine Aminotransferase 15 U/L (0-33); Albumin Level 3.5 g/dL (3.5-5.2); Alkaline Phosphatase 58 U/L (35-105); Anion Gap 13.3 (5-19); Aspartate Amino Transferase 14 U/L (0-32); Blood Urea Nitrogen 25 mg/dL (8-23); Calcium 8.6 mg/dL (8.5-10.5); Carbon Dioxide 29 mmol/L (22-29); Chloride 94 mmol/L (98-107); Creatinine Clr Calc Pharmacy 55.9295; Globulin 2.9 g/dL (1.3-4.6); Glomerular Filtration Rate 45.2 mL/min (90-130); Glucose 102 mg/dL (65-115); Magnesium 1.9 mg/dL (1.7-2.3); Osmolality Calculated 279 mOsm/kg (285-295); Phosphorus 3.1 mg/dL (2.5-4.5); Potassium 4.3 mmol/L (3.5-5.1); Sodium 132 mmol/L (136-145); Total Bilirubin 0.2 mg/dL (0.15-1.2); Total Protein 6.4 g/dL (6.6-8.7)
[2023-10-29 04:34] LABS: Chol HDL Ratio 3.63 mg/dL (0.0-4.40); Cholesterol 203 mg/dL (0-200); HDL Cholesterol 56 mg/dL (60-100); LDL Cholesterol Calculated 122 mg/dL (50-129); LDL HDL Ratio 2.18 RATIO (0.00-3.22); Triglycerides 127 mg/dL (0-150)
[2023-10-29 04:40] LABS: Estmated Average Glucose 117; Hemoglobin A1C 5.7 % (4.0-6.0)
[2023-10-29 05:02] LABS: Folate Level 6.8 ng/mL (4.8-37.3)
[2023-10-29] MEDS: heparin 5,000 unit/mL INJ 1 mL IV (05:23)
[2023-10-29] MEDS: levothyroxine 50 mcg Tablet PO (05:23)
[2023-10-29] MEDS: budesonide 0.5 mg/2 mL Neb INHALATION (08:30)
[2023-10-29] MEDS: alfuzosin 10 mg ER Tablet PO (09:15)
[2023-10-29] MEDS: divalproex DR 500 mg Tablet PO (09:15)
[2023-10-29] MEDS: fluoxetine 20 mg Capsule 80 MG PO (09:15)
[2023-10-29] MEDS: carvedilol 12.5 mg Tablet PO (09:16)
[2023-10-29] MEDS: pantoprazole DR 40 mg Tablet PO (09:16)
[2023-10-29] MEDS: losartan 50 mg Tablet PO (09:16)
--- NOTE | 2023-10-29 10:01 | P.DS_ITS ---
Discharge Providers Date of Admission: 10/28/23 10:05 Date of Discharge: October 29, 2023 Attending Provider at Admission: Ta Bray MD Attending Provider at Discharge: Ta Bray MD Primary Care Provider: Darell Orourke MD Diagnoses at Discharge Discharge Diagnosis (1) Shortness of breath: Status: Acute (2) Pulmonary embolism: Status: Acute (3) Elevated troponin: Status: Acute (4) COPD exacerbation: Status: Acute (5) Obstructive sleep apnea (adult) (pediatric): Status: Acute (6) Nicotine addiction: Status: Chronic Qualifiers: Nicotine product type: cigarettes Substance use status: uncomplicated Qualified Code(s): F17.210 - Nicotine dependence, cigarettes, uncomplicated Reason for Visit Reason for Visit: Side pain,SOB Hospital Course Hospital Course Jasmin Villalobos is a 63 year old female with past medical history of PTSD, depression, obstructive sleep apnea, COPD, chronic smoker, morbid obesity who presented to the ER last night with complaints of difficulty in breathing getting worse over the last 3 weeks along with left-sided chest pain which she thought was under her ribs getting worse for last 2 to 3 days. Shortness of breath gets worse on ambulation. Is not associated with orthopnea or PND. Complaining of cough at baseline. In the ER patient was found to have elevated D-dimer and subsequently was found to have a right upper lobe PE along with elevated troponin levels hence hospital service was consulted. Patient was admitted to the hospital for further evaluation management. She was started on full dose anticoagulation with heparin drip. Her troponin cycled trended down. Troponins on admission were elevated most likely in setting of type II [place] from pulmonary embolism. She remained on room air both on exertion and at rest. Did not have any oppressive chest pain. Echocardiogram was done. Currently results awaited. She has been discharged in hemodynamically stable condition on oral anticoagulation with Eliquis as per PE protocol. She is advised to get stress test as an outpatient for further evaluation. Physical Exam Narrative: General: No acute distress, AO x3, anxious HEENT: PERRLA, pupils bilaterally equal and reactive Chest: Bilateral bronchial breath sounds all over lung samson with occasional rhonchi fine crackles CVS: S1-S2 regular, no murmurs, no tachycardia, no gallops, no rubs Abdomen: Soft, nontender, no organomegaly, bowel sounds present Neuro: No focal deficits, no facial deformity, AO x3, power 5/5 in all limbs Discharge Data Studies Completed and Pending Completed Studies During Hospitalization Category Date Time Status CTA chest [CT angio chest PE protcl [id number]] Stat Cat Scan 10/28/23 05:23 Co mpleted XR chest 1V portable [id number] Stat Exams 10/28/23 04:21 Completed Pending at discharge Category Date Time Status PTT [Partial Thromboplastin Time] Timed Lab 10/29/23 11:30 Ordered Platelet Count Q2D Lab 10/30/23 04:00 Ordered Platelet Count Q2D Lab 11/01/23 04:00 Ordered Radiology Impressions Chest X-Ray 10/28/23 04:21 IMPRESSION: No acute cardiopulmonary process. Chest CTA 10/28/23 05:23 IMPRESSION: 1. Nonocclusive pulmonary artery filling defects versus flow related artifact within right pulmonary artery superior trunk, with extension of possible filling defects into the apical and anterior branches. No evidence of right heart strain. Findings discussed with at 7:41 a.m. on 10/28/2023. 2. Unchanged pulmonary nodules as above. Consider follow-up per Fleischner society protocol.For patients at low risk (minimal or absent history of smoking and of other known risk factors), no routine follow-up is indicated. For patients at high risk (history of smoking or of other known risk factors), consider optional CT Chest at 12 months. (Reference: Renee) 3. Small pericardial effusion. Partially assessed 9 mm right hepatic hypodensity as described Mid esophageal wall thickening as described. Other chronic/ incidental findings as above. REFERENCES: Renee Yu, et al. Guidelines for Management of Incidental Pulmonary Nodules Detected on CT Images: From the Fleischner Society 2017. Radiology. 2017;284(1):228-243. Eight Laboratory Results WBC 10.45 10^3/uL (3.29-11.43) 10/29/23 03:59 RBC 4.35 10^6/uL (3.85-5.65) 10/29/23 03:59 Hgb 13.30 g/dL (11.27-16.99) 10/29/23 03:59 Hct 39.6 % (36-47) 10/29/23 03:59 MCV 91.0 fl (85-98) 10/29/23 03:59 MCH 30.6 pg (27-33) 10/29/23 03:59 MCHC 33.6 g/dL (30-55) 10/29/23 03:59 RDW 14.6 % (12.1-15.1) 10/29/23 03:59 Plt Count 199 10^3/cmm (157-399) 10/29/23 03:59 MPV 8.9 fL (7.4-10.4) 10/29/23 03:59 Neut % (Auto) 70.3 % 10/29/23 03:59 Lymph % (Auto) 19.3 % 10/29/23 03:59 [place] % (Auto) 9.3 % 10/29/23 03:59 Eos % (Auto) 0.4 % 10/29/23 03:59 Baso % (Auto) 0.2 % 10/29/23 03:59 Neut # (Auto) 7.35 10^3/uL (1.8-7.7) 10/29/23 03:59 Lymph # (Auto) 2.0 10^3/uL (0.8-4.8) 10/29/23 03:59 [place] # (Auto) 1.0 10^3/uL (0.2-0.9) H 10/29/23 03:59 Eos # (Auto) 0.0 10^3/uL (0.0-0.8) 10/29/23 03:59 Baso # (Auto) 0.0 10^3/uL (0.0-0.1) 10/29/23 03:59 Nucleated RBC % (auto) 0 % 10/29/23 03:59 Nucleated RBCs # 0.0 /100WBC 10/29/23 03:59 APTT 45.5 SECONDS (23.9-36.7) H 10/29/23 03:59 D-Dimer 3.72 ug/mLFEU (0-0.59) H 10/28/23 04:54 Sodium 132 mmol/L (136-145) L 10/29/23 03:59 Potassium 4.3 mmol/L (3.5-5.1) 10/29/23 03:59 Chloride 94 mmol/L (98-107) L 10/29/23 03:59 Carbon Dioxide 29 mmol/L (22-29) 10/29/23 03:59 Anion Gap 13.3 (5-19) 10/29/23 03:59 BUN 25 mg/dL (8-23) H 10/29/23 03:59 Creatinine 1.2 mg/dL (0.5-0.9) H 10/29/23 03:59 GFR Calculation 45.2 mL/min (90-130) L 10/29/23 03:59 Glucose 102 mg/dL (65-115) 10/29/23 03:59 Estimat Average Glucose 117 10/29/23 03:59 Hemoglobin A1c 5.7 % (4.0-6.0) 10/29/23 03:59 Calculated Osmolality 279 mOsm/kg (285-295) L 10/29/23 03:59 Calcium 8.6 mg/dL (8.5-10.5) 10/29/23 03:59 Phosphorus 3.1 mg/dL (2.5-4.5) 10/29/23 03:59 Magnesium 1.9 mg/dL (1.7-2.3) 10/29/23 03:59 Iron 47 ug/dL (37-145) 10/28/23 04:56 TIBC 308 mcg/dl 10/28/23 04:56 % Saturation 15.2 % (20-50) L 10/28/23 04:56 Unsat Iron Binding 261 ug/dL (112-347) 10/28/23 04:56 Total Bilirubin 0.2 mg/dL (0.15-1.2) 10/29/23 03:59 AST 14 U/L (0-32) 10/29/23 03:59 ALT 15 U/L (0-33) 10/29/23 03:59 Alkaline Phosphatase 58 U/L (35-105) 10/29/23 03:59 Troponin T Baseline 102 ng/L (0-10) H* 10/28/23 04:30 Troponin T 120 Minute 95.70 ng/L (0-10) H 10/28/23 06:27 Delta Troponin T -6.30 ABS# (0-10) L 10/28/23 06:27 Troponin T Hi Sens 6Hr 67.27 ng/L (0-10) H 10/28/23 10:45 Troponin T Hi Sens 6Hr Delta -34.73 ng/L (0-12) L 10/28/23 10:45 NT-Pro-B Natriuret Pep 330 pg/mL (0-125) H 10/28/23 04:56 Total Protein 6.4 g/dL (6.6-8.7) L 10/29/23 03:59 Albumin 3.5 g/dL (3.5-5.2) 10/29/23 03:59 Globulin 2.9 g/dL (1.3-4.6) 10/29/23 03:59 Triglycerides 127 mg/dL (0-150) 10/29/23 03:59 Cholesterol 203 mg/dL (0-200) H 10/29/23 03:59 LDL Cholesterol, Calc 122 mg/dL (50-129) 10/29/23 03:59 HDL Cholesterol 56 mg/dL (60-100) L 10/29/23 03:59 LDL/HDL Ratio 2.18 RATIO (0.00-3.22) 10/29/23 03:59 Cholesterol/HDL Ratio 3.63 mg/dL (0.0-4.40) 10/29/23 03:59 Lipase 17 U/L (13-60) 10/28/23 04:54 Vitamin B12 511 pg/mL (232-1245) 10/28/23 04:56 Folate 6.8 ng/mL (4.8-37.3) 10/29/23 03:59 TSH 1.84 uIU/mL (0.27-4.20) 10/28/23 04:56 Urine Color Light yellow (Yellow) 10/28/23 12:10 Urine Appearance Clear (CLEAR) 10/28/23 12:10 Urine pH 6.5 (5-7) 10/28/23 12:10 Ur Specific [place] 1.015 (1.005-1.030) 10/28/23 12:10 Urine Protein Neg (Negative) 10/28/23 12:10 Urine Glucose (UA) Norm (Normal) 10/28/23 12:10 Urine Ketones Negative (Negative) 10/28/23 12:10 Urine Blood Neg (Negative) 10/28/23 12:10 Urine Nitrate Negative (Negative) 10/28/23 12:10 Urine Bilirubin Neg (Negative) 10/28/23 12:10 Urine Urobilinogen Norm mg/dL (Negative) 10/28/23 12:10 Ur Leukocyte Esterase Negative (Negative) 10/28/23 12:10 Vitals Last Vital Signs Temp 97.5 F L 10/29/23 07:51 Pulse 60 10/29/23 08:39 Resp 33 H 10/29/23 09:14 BP 157/81 10/29/23 09:16 Pulse Ox 91 10/29/23 09:14 O2 Del Method Room Air 10/29/23 08:30 Discharge Plan Discharge Patient Disposition: Home Condition: Stable Prescriptions: [employer] Action DVT-PE Treat 30D Start 5 mg (74 tabs) tablets,dose pack See Rx Instructions .ROUTE .COMPLEX Qty: 74 0RF Rx Instructions: orally per package directions Continued tolterodine 4 mg capsule,extended release 24hr 4 mg PO DAILY Qty: 30 12RF albuterol sulfate 2.5 mg /3 mL (0.083 %) solution for nebulization 2.5 mg inhalation Q4H PRN (Reason: shortness of breath or wheezing) Qty: 360 3RF benzonatate 100 mg capsule 100 mg PO TID PRN (Reason: cough) Qty: 45 0RF losartan 50 mg tablet 50 mg PO DAILY Qty: 90 2RF Depakote 500 mg tablet,delayed release (DR/EC) 500 mg PO DAILY@0800 Qty: 30 3RF fluoxetine 40 mg capsule 80 mg PO DAILY@0800 Qty: 60 3RF nystatin 100,000 unit/mL suspension 500,000 unit PO Q6H Qty: 473 1RF Rx Instructions: Swish in mouth for 2 minutes and then swallow - Until better prednisone 20 mg tablet 40 mg PO DAILY 10 Days Qty: 20 0RF budesonide-formoterol [Symbicort] 80-4.5 mcg/actuation HFA aerosol inhaler 2 puff inhalation BID Qty: 10.2 3RF carvedilol 12.5 mg tablet 12.5 mg PO BID Qty: 180 3RF Rx Instructions: must administer with a meal/food potassium chloride 10 mEq tablet extended release See Rx Instructions .ROUTE .COMPLEX Qty: 90 3RF Dose Instruction: TAKE 1 TABLET BY MOUTH ONCE A DAY WHEN TAKING LASIX Rx Instructions: TAKE 1 TABLET BY MOUTH ONCE A DAY WHEN TAKING LASIX albuterol sulfate 90 mcg/actuation HFA aerosol inhaler 2 inh inhalation Q4H PRN (Reason: shortness of breath or wheezing) Qty: 8.5 6RF cholecalciferol (vitamin D3) [Vitamin D3] 50 mcg (2,000 unit) Tablet 50 mcg PO DAILY@0800 omega 9-xzm-yck-fish oil [Fish Oil] 300-1,000 mg Capsule 1 cap PO DAILY@0800 oxycodone 10 mg tablet 10 mg PO Q4H PRN (Reason: Pain) amantadine HCl 100 mg tablet 100 mg PO BID omeprazole 40 mg capsule,delayed release(DR/EC) 40 mg PO QAM levothyroxine 50 mcg tablet 50 mcg PO QAM Rx Instructions: 30 MINUTES PRIOR TO BREAKFAST. TAKE WITH WATER ONLY. hydrochlorothiazide 25 mg tablet 25 mg PO DAILY alfuzosin 10 mg tablet extended release 24 hr 10 mg PO DAILY Discharge Orders: Discharge Order (Routine); Ordered 10/29/23 Ordered By: Ta Bray Other Ambulatory Orders: Sestamibi Stress Test Request (Routine) Timeframe: 1 Week Facility: [facility] - Location: Cardiac Diagnostic Laboratory Ordered By: Ta Bray Referrals: Darell Orourke MD [Primary Care Provider] - 11/08/23 12:30 pm () Discharge Diet: Cardiac Discharge Activity: Resume usual activity and Increase activity as tolerated Patient Instructions: Anticoagulation Therapy, Apixaban (By mouth) (Eliquis), Pulmonary Embolism (DC), High Troponin Levels (GEN), Opioid Safety Activity Restrictions/Additional Instructions: Take Eliquis for acute anticoagulation. You will take 10 mg twice daily for 1 week followed by 5 mg twice daily for at least 6 months. Discharge Attestations Time Spent in Discharge Care*: greater than 30 min Specific Discharge Activities: educating patient, discussing with pcp/other providers, discussing with nurse case management/social workers/dc planners, documenting/other paperwork and evaluating patient/reviewing data Status at Discharge: Cognitive status at discharge: cognitively intact , Behavioral status at discharge: cooperative , Functional status at discharge: independent ambulation , Overall status at discharge: patient is progressing back to baseline Quality Metrics Clinical Quality Measures [ Venous Thromboembolism { Contraindication to Overlap Therapy: None; Overlap threrpy ordered; VTE Discharge Education: Education about anticoagulant therapy/Care Notes given, Education about treatment options/disease process, Medication side effects education, INR/lab monitoring education as applicable, Follow-up arranged, Other; Deep Vein Thrombosis/Pulmonary Embolism Present on Admission: Yes;}] Coding Level of Care Code 87492 Total time (in minutes) for Discharge: 60 Diagnoses Shortness of breath R06.02 Pulmonary embolism I26.99 Elevated troponin R79.89 COPD exacerbation J44.1 Obstructive sleep apnea (adult) (pediatric) G47.33 Cigarette nicotine dependence without complication F17.210 Nicotine product type: cigarettes Substance use status: uncomplicated
--- NOTE | 2023-10-29 10:02 | USCV_ITS ---
Jasmin Villalobos Age: 63 Gender: F : 1960 Exam Date: 10/29/2023 11:47 Ordering Phys: Ta Bray MD Technologist: CT Exam Location: [facility] – [place] Indication: pe BP: 110 / 80 HR: 55 Rhythm: Sinus Technical Quality: Adequate MEASUREMENTS (Male / Female) Normal Values 2D ECHO LVOT Diameter 2.3 cm LV Ejection Fraction MOD 2C 58.3 % LV Ejection Fraction 2C AL 58.0 % LA Diameter 3.3 cm RA Systolic Volume 4C AL 79.1 ml RA Systolic Volume 4C MOD 78.1 ml LA Sys Volume AL 74.5 cm cubed LA Sys Volume Index AL 33.3 cm cubed/m squared Aorta at Sinotubular Diameter 3.1 cm IVC Diameter 2.0 cm M-MODE LA Ao Ratio MM 1.6 AV Cusp Separation MM 2.1 cm DOPPLER AV Peak Velocity 129.0 cm/s LVOT Peak Velocity 91.0 cm/s AV Area Cont Eq vti 3.4 cm squared AV Area Cont Eq pk 3.0 cm squared MV Peak Velocity 306.7 cm/s MV Area PHT 2.8 cm squared Mitral E to A Ratio 1.0 TR Peak Velocity 98.0 cm/s TR Peak Gradient 3.8 mmHg TV Peak E Velocity 72.0 cm/s Right Atrial Pressure 3.0 mmHg Pulmonary Artery Systolic Pressu 6.8 mmHg PV Peak Velocity 106.0 cm/s FINDINGS Left Ventricle Left ventricle is normal in size. LV systolic function is normal with EF 50-55%. No regional wall motion abnormalities are seen. Right Ventricle Normal in size and function Right Atrium Dilated Left Atrium Dilated Mitral Valve Structurally normal mitral valve. Mild mitral regurgitation. Aortic Valve Structurally normal aortic valve. No significant stenosis or regurgitation. Tricuspid Valve Mild tricuspid regurgitation. Pulmonic Valve Trace pulmonic regurgitation. Pericardium Normal Aorta Ascending aorta is mildly dilated with diameter of 3.51cm IVC Appears to be normal CONCLUSIONS LV systolic function is normal with EF of 50-55% Biatrial dilation Mild mitral regurgitation Mild tricuspid regurgitation Trace pulmonic regurgitation Ascending aorta is mildly dilated with diameter of 3.51cm Nino Caceres MD (Electronically Signed) Final Date: 30 Oct 2023 12:07 S
[2023-10-29 12:24] LABS: Partial Thromboplastin Time 68.5 SECONDS (23.9-36.7)
--- NOTE | 2023-10-29 16:44 | PC.NURSE ---
received a call from the pt that pharmacy did not have any starter pack for eliquis. Notified hospitalist and informed him that pharmacy carries a regular eliquis but needs a new Rx for this instruction of Eliquis. Coupon provided.
== END 2023-10-29 15:22 | disposition home or self-care (01) ==
LOC: ER 08:13 → CSU 18:45
PROVIDERS: Emergency Medicine; Admitting Provider Student in an Organized Health Care Education/Training Program; Emergency Provider Family Medicine; PCP Family Medicine; Visit Provider Student in an Organized Health Care Education/Training Program
DX: I26.99 Other pulmonary embolism without acute cor pulmonale (principal); R79.89 Other specified abnormal findings of blood chemistry; J44.1 Chronic obstructive pulmonary disease with (acute) exacerbation; G47.33 Obstructive sleep apnea (adult) (pediatric); F17.210 Nicotine dependence, cigarettes, uncomplicated; F32.A Depression, unspecified; E66.01 Morbid (severe) obesity due to excess calories; Z68.41 Body mass index [BMI] 40.0-44.9, adult; I10 Essential (primary) hypertension
CPT/HCPCS: 36415; 71045; 71275; 80053; 80061; 81003; 82607; 82746; 83036; 83540; 83550; 83690; 83735; 83880; 84100; 84443; 84484; 85025; 85378; 85730; 93005; 93306; 94640; 94664; 96365; 96366; 96375; 96376; 99285; G0378; J1644; J2270; J2405; J2919; J7626; J7644; Q9967

== ENCOUNTER 2023-11-11 08:11 | Outpatient (CLI) | payer MEDICARE, MEDICAID, SELFPAY ==
--- NOTE | 2023-11-11 08:17 | ECG_ITS ---
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 Interpretive Statements NAME OF STUDY: LEXISCAN SESTAMIBI STRESS TEST INDICATION: [Chest Pain, ] Procedure: At the baseline, the blood pressure was 127/84 mmHg with a heart rate of 72 bpm. The electrocardiogram showed normal sinus rhythm, normal axis with normal ST and T's. The Lexiscan was infused over a period of 20 seconds. A total of 0.4 mg of Lexiscan was infused. The stress phase was continued for a total of 5 minutes. Heart rate was at the end of stress phase was 82 bpm and a blood pressure of 120/80 mmHg. The EKG at the peak infusion revealed normal sinus rhythm with no significant ST-T wave changes. Sestamibi was injected 20 seconds after the Lexiscan infusion. Blood pressure at the end of recovery phase was 105/79 mmHg with a heart rate of 80 bpm. Conclusion: 1. Normal EKG response to Lexiscan infusion 2. No Lexiscan induced chest pain or cardiac arrhythmia. 3. Normal blood pressure and heart rate response. 4. Sestamibi/sestamibi perfusion scan pending; see separate report. Electronically Signed On 11-16-2023 10:52:56 CDT by Nino Caceres M.D. [email or web address]
--- NOTE | 2023-11-11 08:18 | NMCV_ITS ---
NM christen perf SPECT r/s* [id number] Jasmin Villalobos Age: 63 Gender: F : 1960 Exam Date: 11/11/2023 08:18 Ordering Phys: Ta Bray MD Technologist: SANDEEP Melendez Exam Location: [facility] Indications: ABNORMAL BLOOD CHEMISTRY STRESS TEST [facility] IMAGE PROTOCOL Rest/Stress 1 Lexiscan Day Radiopharmaceutical Dose (mCi) Administration Site Administered by Rest: Tc-99m 10.4 IV SANDEEP Alvarado Sestamibi Stress:Tc-99m 33.0 IV SANDEEP Alvarado Sestamibi Rest: 11-Nov-2023 60 Discovery 630 Stress: 11-Nov-2023 30 Discovery 630 0.4mg Lexiscan. Supine position only as patient was unable to lay prone. SPECT RESULTS Technical Quality: Excellent Raw Data Analysis: Normal Image Corrections: No attenuation or motion correction applied Summed Stress Score: 1 Summed Rest Score: 0 Summed Difference Score: 1 PERFUSION FINDINGS Small in size, equal focal reversible perfusion defect seen in apical wall. This is consistent with small area of ischemia in LAD territory versus attenuation artifact. Clinical correlation is required. FUNCTIONAL RESULTS (calculated via Gated SPECT) Stress Image LV EF (%): 71 Stress EDV (mL):97 TID: 1.03 Stress ESV (mL):28 FUNCTIONAL FINDINGS: There is normal left ventricular systolic function. IMPRESSIONS 1. Small area of possible ischemia in LAD territory versus attenuation artifact. Clinical correlation is required. 2. LV systolic function is normal Nino Caceres MD (Electronically Signed) Final Date: 11 Nov 2023 12:09 S
[2023-11-11 08:57] VITALS: BMI 41.1
[2023-11-11] MEDS: regadenoson 0.4 Mg/5 ml Syringe 0.400000000000000022 MG IVP (09:54)
[2023-11-11 10:16] VITALS: BP 120/80; PULSE 88
== END 2023-11-11 08:12 | disposition home or self-care (01) ==
PROVIDERS: PCP Family Medicine; Visit Provider Student in an Organized Health Care Education/Training Program
DX: R79.89 Other specified abnormal findings of blood chemistry (principal)
CPT/HCPCS: 36415; 78452; 93017; 96374; A9500; J2785

== ENCOUNTER 2023-11-15 15:19 | Outpatient (CLI) | payer MEDICARE, MEDICAID, SELFPAY ==
--- NOTE | 2023-11-15 15:30 | MM_ITS ---
WS: [id number] BILATERAL 3D TOMOSYNTHESIS DIGITAL SCREENING MAMMOGRAPHY WITH CAD CLINICAL INFORMATION: Screening HISTORY: Screening mammogram. No current complaints. COMPARISON: 2013 TECHNIQUE: Bilateral CC and MLO views. FINDINGS: Scattered fibroglandular densities bilaterally. No suspicious focal mass, asymmetry, calcifications, or architectural distortion. No evidence of malignancy. A few tiny incidental calcifications. MM/[place] [id number] IMPRESSION: BI-RADS: 2-Benign FOLLOW UP: 1 Year Follow-up Recommend return to annual screening mammography.
== END 2023-11-15 15:20 | disposition home or self-care (01) ==
LOC: RAD 15:19
PROVIDERS: PCP Family Medicine; Visit Provider Family Medicine
DX: Z12.31 Encounter for screening mammogram for malignant neoplasm of breast (principal); R92.323 Mammographic fibroglandular density, bilateral breasts; Z12.11 Encounter for screening for malignant neoplasm of colon; K21.9 Gastro-esophageal reflux disease without esophagitis; K22.89 Other specified disease of esophagus
CPT/HCPCS: 77063; 77067; 99204

== ENCOUNTER → 2023-12-15 06:56 | Outpatient (CLI) | payer MEDICARE, MEDICAID, SELFPAY ==
--- NOTE | 2023-12-15 07:00 | USR_ITS ---
PROCEDURE INFORMATION: Exam: US Abdomen, Limited; Right Upper Quadrant Exam date and time: 12/15/2023 7:16 AM Age: 63 years old Clinical indication: Condition or disease; Liver condition; Other: Liver nodule TECHNIQUE: Imaging protocol: Real time ultrasound of the abdomen with image documentation. Limited exam focused on the right upper quadrant. COMPARISON: US renal BI with PV bladder 04/18/2019 2:00 PM FINDINGS: Liver: Normal. No masses. Small cyst measuring 1.3 cm noted. Patent main portal vein with normal direction of flow. Gallbladder: The gallbladder has been surgically removed. Biliary ducts: Normal. No stones. No dilation. Pancreas: Visualized pancreas is unremarkable. Right kidney: Normal. No mass. No hydronephrosis. US/US liver [id number] IMPRESSION: No acute findings.
== END | disposition home or self-care (01) ==
LOC: RAD 06:55
PROVIDERS: PCP Family Medicine; Visit Provider Family Medicine
DX: K76.89 Other specified diseases of liver (principal)
CPT/HCPCS: 76705

== ENCOUNTER → 2024-01-17 12:42 | Outpatient (BNVA) | payer MEDICARE, MEDICAID, SELFPAY | PROVIDERS: PCP Family Medicine; Visit Provider Family Medicine | DX: L98.9 Disorder of the skin and subcutaneous tissue, unspecified (principal); I10 Essential (primary) hypertension | CPT/HCPCS: 88305 ==

== ENCOUNTER 2024-03-27 15:40 | Outpatient (CLI) | payer MEDICARE, MEDICAID, SELFPAY ==
--- NOTE | 2024-03-27 15:47 | XR_ITS ---
WS: [id number] Exam: XR cervical spine 4-5V [id number] Date/Time of Exam: 03/27/2024 3:47 PM Reason For Exam: Neck pain with radicular symp to post scalp Comparison 03/13/2019. No acute fracture or dislocation. 2 mm degenerative anterolisthesis of C3 on C4 and 2.3 mm degenerati ve anterolisthesis of C5 on C6. Moderate facet DJD at all levels. Mild spondylosis at all levels. Nor mal paraspinal soft tissue structures. The odontoid is intact. Bone spurs project in the neural susanne jason on the RIGHT at C5-6 and C6-7. Bone spur projects into the LEFT neural foramen at C5-6. XR/XR cervical spine 4-5V [id number] IMPRESSION: 1. Mild degenerative anterolisthesis of C3 on C4 and C5 on C6 as noted above. F acet DJD at all levels. 2. Bone spurs project into the RIGHT neural foramina at C5-6 and C6-7. Bone spu r projects of the LEFT neural foramen at C5-6.
== END 2024-03-27 15:41 | disposition home or self-care (01) ==
LOC: RAD 15:40
PROVIDERS: PCP Family Medicine; Visit Provider Family Medicine
DX: M54.12 Radiculopathy, cervical region (principal); M43.12 Spondylolisthesis, cervical region; M50.30 Other cervical disc degeneration, unspecified cervical region; M25.78 Osteophyte, vertebrae
CPT/HCPCS: 72050

== ENCOUNTER → 2024-05-08 13:00 | Outpatient (BNVA) | payer MEDICARE, SELFPAY | PROVIDERS: PCP Family Medicine; Visit Provider Surgery | DX: K22.89 Other specified disease of esophagus; K21.9 Gastro-esophageal reflux disease without esophagitis; R13.10 Dysphagia, unspecified; Z12.11 Encounter for screening for malignant neoplasm of colon; R22.31 Localized swelling, mass and lump, right upper limb | CPT/HCPCS: 99214 ==

== ENCOUNTER 2024-05-31 07:59 | Day surgery (SDC) | payer MEDICARE, MEDICAID, SELFPAY ==
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
--- OUTSIDE RECORDS SUMMARY | 2024-05-31 08:01 | XMS_ITS ---
Author Name Unknown Organization [facility] Address [address] [place], [place] [id number] Care Team Providers Care City Dispatcher Name Role Phone Darell Orourke MD Primary Care Provider Lena Fernandez MD, Tj Hood [phone] REASON FOR VISIT MRI CSP Encounters Encounter Location Date Provider [facility] [address] [place], [place] [id number] 05/17/2024 Tj Fernandez Plan Of Treatment Next Appt Details Provider Name:Tj Ulloa son, 06/12/2024 12:43:00 PM, [facility] [address] [place], [place], [id number], Provider Name:Tj Ulloa son, 07/05/2024 09:30:00 AM, [facility] [address] [address] [place], [place], [id number], Progress Notes * Jasmin MCKENZIE KDOB:[birth year] (64 yo F)Acc No.[id number]:05/17/2024 Patient:?Jasmin MCKENZIE :1960???Age:64 Y???Sex:Female Address:[address] [place] [address] [address], [place] [address] * true * Date:? Generated for Printi ng/Favanessag/eTransmitting on:?05/31/2024 08:00 AM WIRE COATER
--- OUTSIDE RECORDS SUMMARY | 2024-05-31 08:01 | XMS_ITS ---
Author Name Unknown Organization [facility] Address [address] [place], [place] [id number] Care Team Providers Care Information Management Specialist Name Role Phone Darell Orourke MD Primary Care Provider Lena Fernandez MD, Tj Unavailable [phone] Allergies Allergen (clinical drug ingredient) Drug/Non Drug Allergy documented on EMR Reaction Allergy Type Onset Date Status sulfamethoxazole / trimethoprim Bactrim Unknown Drug Allergy Active acetaminophen Tylenol rebound headaches Drug Allergy Active [place] headaches Drug Allergy Active ibuprofen rebound headaches Drug Allergy Active doxycycline doxycycline facial edema Drug Allergy Active duloxetine Cymbalta Unknown Drug Allergy Active pregabalin Lyrica generalized edema Drug Allergy Active REASON FOR VISIT Low back pain Medications Medication SIG (Take, Route, Frequency, Duration) Notes Start Date End Date Status levothyroxine 50 mcg (0.05 mg) 1 tab ora lly once a day Active hydroCHLOROthiazide 25 mg 1 tab(s) orall y once a day for 30 day(s) Active methenamine mandelate 1 g 1 tab orally 4 times a day (after meals and at bedtime) Active NexIUM 40 mg 1 cap orally once a day Active morphine 15 mg 1 tab orally Q4H prn pain (max 4/day; hold within 4H of planned sleep) Active fluticasone nasal 50 mcg/inh 2 sprays in tranasally once a day Active FLUoxetine 40 mg 2 caps with a 20 mg capsule orally once a day Active Cranberry Supplement as directed Active Eliquis 5 mg as directed orally 2 times a day for 30 day(s) Active divalproex sodium 500 mg 1 tab orally 2 times a day Active amantadine 100 mg 1 cap(s) orally 2 times a day for 30 day(s) 09/01/2023 Active alfuzosin 10 mg 1 tab(s) orally once a day for 30 day(s) Active cefuroxime 500 mg 1 tab orally every 1 2 hours Active carvedilol 12.5 mg 1 tab orally 2 times a day Active budesonide-formoterol 80 mcg-4.5 mcg/inh 2 puff(s) inhaled 2 times a day for 30 day(s) 10/27/2023 Active Rexulti 1 mg 1 tab orally once a day 04/11/2020 Active traZODone 100 mg 1 tab orally at bedtime Active Vitamin D3 5000 intl units orally as directed Active verapamil 120 mg/24 hours 1 cap orally o nce a day Active Wellbutrin SR 150 mg/12 hours 1 tab oral ly 2 times a day Active predniSONE 20 mg 1 tab(s) orally once a day for 7 day(s) 10/27/2023 Active [place]-3 Active nystatin 915973 units/mL 4 mL orally 4 t imes a day Active pantoprazole 40 mg 1 tab(s) orally once a day for 30 day(s) Active oxyBUTYnin 5 mg 1 tab orally 3 times a day Active Encounters Encounter Location Date Provider Diagnosis [facility] [address] [place] [address] 05/29/2024 Tj Fernandez Sacroiliitis, not elsewhere classified M46.1 and Other specified anxiety disorders F41.8 Assessments Encounter Date Diagnosis (ICD Code) Assessment Notes Treatment Notes Treatment Clinical Notes Section Notes 05/29/2024 Sacroiliitis, not elsewhere classified (ICD-10 - M46.1) Plan right SI joint local anesthetic / steroid injection. 05/29/2024 Other specified anxiety disorders (ICD-10 - F41.8) Patient requests no IV sedation. Plan Of Treatment Treatment Notes Assessment Notes Sacroiliitis, not elsewhere classified P binta right SI joint local anesthetic / steroid injection. Other specified anxiety disorders Patien t requests no IV sedation. Next Appt Details Follow Up: As arranged.Mariel son: Provider Name:Tj Ulloa son, 06/12/2024 12:43:00 PM, [address], [place], [place], [id number], Provider Name:Tj Ulloa son, 07/05/2024 09:30:00 AM, [address], [place], [place], [id number], Procedure Notes * Category Sub-Category Detail Notes sacroiliac joint injection(s) Start time: 03 18 Finish time: 925 Site: medial to the superi or aspect of the right gluteal fold Equipment/supplies: 22 ga spinal needle; sterile gloves and prep tray to include needles and syringes; 2 ml Omnipaque 240 contrast dye (48 ml wasted); 1% lidocaine and 0.75% bupivacaine; Depo Medrol 80 mg/ml; C-arm fluoroscopy Position: the patient was plac ed in the prone position Sedation: after blood pressure , EKG and SaO2 monitors were applied, IV sedation via RN was not needed Fluoroscopy: the sacroiliac joint was visualized under fluoroscopy. Omnipaque 240 contrast dye was injected and the contrast flow was visualized and a copy of the following images were printed and placed in the patient's chart or archived on a disc at the surgery center: anterior-posterior / oblique and lateral views were utilized Interview: a pre-procedure eval uation was conducted in which the vital signs were evaluated. The risks of the procedure were previously discussed with the patient. See the patient's signed consent form. The patient wished to proceed Injection: a 1.5 ml solution of 0.5 ml of 0.75% bupivacaine plus 80 mg/ml of Depo-Medrol was then injected Location: [facility] Discharge: the patient was obse rved after the procedure and the patient was discharged with no untoward effects Prep/technique: chlorhexidine prep f ollowed by a sterile drape; sterile technique was observed throughout the procedure. The 22 ga spinal needle was introduced via fluoroscopic guidance after the site was injected with 1% lidocaine local anesthesia radiological examination Sacroiliac join t arthrography: indication: sacroiliitis; views: anteroposterior / oblique and lateral views were utilized. An examination of the sacroiliac joint was performed under fluoroscopy with Omnipaque 240 injected and the contrast flow was observed Progress Notes * Jasmin MCKENZIE KDOB:[birth year] (64 yo F)Acc No.[id number]:05/29/2024 Patient:?Jasmin MCKENZIE Provider:?Tj Ronalcharlotte :1960???Age:64 Y???Sex:Female D ate:05/29/2024 Address:[address] [place], [place] [id number] Pcp:Darell Orourke MD Subjective: * Chief Complaints: * ???Low back pain * HPI: ???Lumbar Spine:?64 year old female presents with c/o pain?for?chronic duration?in the right lower back. This pain is described as constant aching with intermittent sharper paroxysms. This pain is currently located in the right sacral region; the lumbar region remains improved post most recent lumbar RFA procedure. This pain extends into the right hip, groin, and anterolateral thigh muscles, described as muscle spasm pain. The back pain is aggravated by standing, sitting, lifting and bending. This pain is somewhat alleviated with rest and by sitting down. This right sacral pain and prior sciatica symptoms were resolved for three years post prior right SI joint steroid injection and this pain has recently returned. ?Patient also complains of an increase in her neck pain related symptoms. Patient desires interventional treatment for this pain. Patient would like a referral to address this pain.?c/o weakness?intermittently in the RLE.?Denies : tingling/numbness.?Denies : injury:.?Denies : previous surgery:.? HPI forwarded from prior office visit note . * Medical History:? * Surgical History:? * Hospitalization/Major Diagno stic Procedure:? * Medications:?Takingalfuzosin 10 mg tablet, extended release 1 tab(s) orally once a day amantadine 100 mg capsule 1 cap(s) orally 2 times a day budesonide- formoterol 80 mcg-4.5 mcg/inh aerosol 2 puff(s) inhaled 2 times a day carvedilol 12.5 mg tablet 1 tab orally 2 times a day cefuroxime 500 mg tablet 1 tab orally every 12 hours Cranberry Supplement as directed divalproex sodium 500 mg delayed release tablet 1 tab orally 2 times a day Eliquis(apixaban) 5 mg tablet as directed orally 2 times a day FLUoxetine 40 mg capsule 2 caps with a 20 mg capsule orally once a day fluticasone nasal 50 mcg/inh spray 2 sprays intranasally once a day hydroCHLOROthiazide 25 mg tablet 1 tab(s) orally once a day levothyroxine 50 mcg (0.05 mg) tablet 1 tab orally once a day methenamine mandelate 1 g tablet 1 tab orally 4 times a day (after meals and at bedtime) morphine 15 mg tablet 1 tab orally Q4H prn pain (max 4/day; hold within 4H of planned sleep) NexIUM(esomeprazole) 40 mg delayed release capsule 1 cap orally once a day nystatin 368959 units/mL suspension 4 mL orally 4 times a day [place]-3(omega-3 polyunsaturated fatty acids) oxyBUTYnin 5 mg tablet 1 tab orally 3 times a day pantoprazole 40 mg delayed release tablet 1 tab(s) orally once a day predniSONE 20 mg tablet 1 tab(s) orally once a day Rexulti(brexpiprazole) 1 mg tablet 1 tab orally once a day traZODone 100 mg tablet 1 tab orally at bedtime verapamil 120 mg/24 hours capsule, extended release 1 cap orally once a day Vitamin D3(cholecalciferol) 5000 intl units capsule orally as directed Wellbutrin SR(buPROPion) 150 mg/12 hours tablet, extended release 1 tab orally 2 times a day Taking alfuzosin 10 mg tablet, extended release 1 tab(s) orally once a day Taking amantadine 100 mg capsule 1 cap(s) orally 2 times a day Taking budesonide-formoterol 80 mcg-4.5 mcg/inh aerosol 2 puff(s) inhaled 2 times a day Taking carvedilol 12.5 mg tablet 1 tab orally 2 times a day Taking cefuroxime 500 mg tablet 1 tab orally every 12 hours Taking Cranberry Supplement as directed Taking divalproex sodium 500 mg delayed release tablet 1 tab orally 2 times a day Taking Eliquis(apixaban) 5 mg tablet as directed orally 2 times a day Taking FLUoxetine 40 mg capsule 2 caps with a 20 mg capsule orally once a day Taking fluticasone nasal 50 mcg/inh spray 2 sprays intranasally once a day Taking hydroCHLOROthiazide 25 mg tablet 1 tab(s) orally once a day Taking levothyroxine 50 mcg (0.05 mg) tablet 1 tab orally once a day Taking methenamine mandelate 1 g tablet 1 tab orally 4 times a day (after meals and at bedtime) Taking morphine 15 mg tablet 1 tab orally Q4H prn pain (max 4/day; hold within 4H of planned sleep) Taking NexIUM(esomeprazole) 40 mg delayed release capsule 1 cap orally once a day Taking nystatin 573870 units/mL suspension 4 mL orally 4 times a day Taking [place]-3(omega-3 polyunsaturated fatty acids) Taking oxyBUTYnin 5 mg tablet 1 tab orally 3 times a day Taking pantoprazole 40 mg delayed release tablet 1 tab(s) orally once a day Taking predniSONE 20 mg tablet 1 tab(s) orally once a day Taking Rexulti(brexpiprazole) 1 mg tablet 1 tab orally once a day Taking traZODone 100 mg tablet 1 tab orally at bedtime Taking verapamil 120 mg/24 hours capsule, extended release 1 cap orally once a day Taking Vitamin D3(cholecalciferol) 5000 intl units capsule orally as directed Taking Wellbutrin SR(buPROPion) 150 mg/12 hours tablet, extended release 1 tab orally 2 times a day * Allergies:?BactrimTylenol: r ebound headachesNorco: headachesibuprofen: rebound headachesCymbaltadoxycycline: facial edemaLyrica: generalized edema Objective: * Vitals:? * Examination: ???General examination: ?Appearance/ Psychiatric:?no apparent distress.?Heart:?regular rate and rhythm.?Lungs:?clear to auscultation.?Lumbar Spine: ?Back:?SI joint tenderness noted on the right.? Assessment: * Assessment: 1.?Sacroiliitis, not elsewhe re classified - M46.1 (Primary)???2.?Other specified anxiety disorders - F41.8??? Plan: * Treatment: 2.?Other specified anxiety d isorders? Notes: Patient requests no IV sedation.?? Prescription Drug Monitoring Program (PDMP) PDMP report request complete d on 05/02/2024 08:38:46 Tj Solis Procedures:?radiological examination:?Sacroiliac joint arthrography:?indication: sacroiliitis; views: anteroposterior / oblique and lateral views were utilized. An examination of the sacroiliac joint was performed under fluoroscopy with Omnipaque 240 injected and the contrast flow was observed.?sacroiliac joint injection(s):?Location:?[facility].?Interview:?a pre-procedure evaluation was conducted in which the vital signs were evaluated. The risks of the procedure were previously discussed with the patient. See the patient's signed consent form. The patient wished to proceed.?Start time:?920.?Finish time:?925.?Sedation:?after blood pressure, EKG and SaO2 monitors were applied, IV sedation via RN was not needed.?Position:?the patient was placed in the prone position.?Site:?medial to the superior aspect of the right gluteal fold.?Equipment/supplies:?22 ga spinal needle; sterile gloves and prep tray to include needles and syringes; 2 ml Omnipaque 240 contrast dye (48 ml wasted); 1% lidocaine and 0.75% bupivacaine; Depo Medrol 80 mg/ml; C-arm fluoroscopy.?Prep/technique:?chlorhexidine prep followed by a sterile drape; sterile technique was observed throughout the procedure. The 22 ga spinal needle was introduced via fluoroscopic guidance after the site was injected with 1% lidocaine local anesthesia.?Fluoroscopy:?the sacroiliac joint was visualized under fluoroscopy. Omnipaque 240 contrast dye was injected and the contrast flow was visualized and a copy of the following images were printed and placed in the patient's chart or archived on a disc at the surgery center: anterior-posterior / oblique and lateral views were utilized.?Injection:?a 1.5 ml solution of 0.5 ml of 0.75% bupivacaine plus 80 mg/ml of Depo-Medrol was then injected.?Discharge:?the patient was observed after the procedure and the patient was discharged with no untoward effects.? * Procedure Codes:?97294 (ASC) INTRA-ARTICULAR SACROILIAC JOINT INJECTION * Follow Up:?As arranged. * Images: * FENCE ERECTOR Sign off status: Completed true * Provider:?Tj Fernandez Date:?05/29/20 24 Generated for Camilla barbosa/Julia/Faustino on:?05/31/2024 08:00 AM WOOD FENCE ERECTOR History and Physical Notes * HPI (History of Present Illness) Category Sub-Category Detail Notes Category Not es Lumbar Spine injury: HPI forwarded f rom prior office visit note tingling/numbness pain in the right lower b ack. This pain is described as constant aching with intermittent sharper paroxysms. This pain is currently located in the right sacral region; the lumbar region remains improved post most recent lumbar RFA procedure. This pain extends into the right hip, groin, and anterolateral thigh muscles, described as muscle spasm pain. The back pain is aggravated by standing, sitting, lifting and bending. This pain is somewhat alleviated with rest and by sitting down. This right sacral pain and prior sciatica symptoms were resolved for three years post prior right SI joint steroid injection and this pain has recently returned. Patient also complains of an increase in her neck pain related symptoms. Patient desires interventional treatment for this pain. Patient would like a referral to address this pain previous surgery: weakness intermittently in th e RLE Examination Category Sub-Category Detail Notes Category Not es General examination Heart: regular rate and rhyt hm Lungs: clear to auscultatio n Appearance/ Psychiatric: no apparent dis tress Skin: Lumbar Spine Back: SI joint tenderness noted on the right
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
[2024-05-31 08:33] VITALS: BP 134/88; PULSE 89; RESP 18; TEMP 36.4; O2SAT 95; BMI 44.2
[2024-05-31] MEDS: sodium chloride 0.9% 500 ML 15 ML IV (08:39)
--- NOTE | 2024-05-31 08:47 | ANES.PREANE2 ---
Pre-Anesthetic Assessment Height/Weight: Height 5 ft 3 in Weight 250 lb Temp Pulse Resp BP Pulse Ox O2 Del Method 97.5 F L 89 18 134/88 95 Room Air 05/31/24 08:33 05/31/24 08:33 05/31/24 08:33 05/31/24 08:33 05/31/24 08:33 05/31/24 08:33 Preop Diagnosis: Screening colonoscopy Operation Date: 05/31/24 09:15 Proposed Procedures p EGD Dilation W/ Balloon 81789, 04353, G0121, K22.89, K21.9, Z12.11, R13.0(Not Applicable) - Teodoro Sharma DO s Colonoscopy(Not Applicable) - Teodoro Sharma DO Was Beta Kai taken within 24 hours: N/A Was Clonidine taken within 24 hours: N/A Last intake: Intake Last Liquid Date 05/30/24 Last Liquid Time 23:30 Last Solid Date 05/29/24 Last Solid Time 18:00 Social Tobacco and No alcohol Exam alert, oriented x 3 and regular rate & rhythm Rhonchi noted on expiration Airway Submandibular: within normal limits Cervical ROM: within normal limits Mallampati: Class II Dentition: false Anesthetic Plan ASA status: 3 Anesthesia: MAC Other: Patient denies any issues with anesthesia Completed bowel prep Rhonchi noted on auscultation, plan for preop DuoNeb Current smoker Hypertension on losartan Chronic pain, on chronic morphine DARON on CPAP BMI 44 Plan for MAC anesthetic Medications/Allergies Home Medications Medication Instructions Recorded Confirmed Last Taken Type cholecalciferol (vitamin D3) 50 50 mcg PO DAILY@79902/05/20 05/29/24 05/30/24 History mcg (2,000 unit) tablet (Vitamin D3) omega 2-rcv-dkv-fish oil 300 1 cap PO DAILY@79902/05/20 05/29/24 05/30/24 History mg-1,000 mg capsule (Fish Oil) albuterol sulfate 90 mcg/actuation 2 inh inhalation Q4H PRN shortness 04/26/23 05/31/24 05/30/24 Rx aerosol inhaler of breath or wheezing #8.5 grams albuterol sulfate 2.5 mg/3 mL 2.5 mg (3 mL) inhalation Q4H PRN 10/06/23 05/29/24 Unknown Rx (0.083 %) solution for nebulization shortness of breath or wheezing #360 mL alfuzosin 10 mg tablet,extended 10 mg PO DAILY 10/28/23 05/29/24 05/30/24 History release 24 hr (Uroxatral) levothyroxine 50 mcg tablet 50 mcg PO QAM 10/28/23 05/29/24 05/31/24 06:00 History apixaban 5 mg tablet (Eliquis) 5 mg PO Q12H #60 tabs 11/08/23 05/29/24 05/28/24 Rx morphine 15 mg tablet,extended 15 mg PO Q6H 01/17/24 05/29/24 05/31/24 06:00 History release losartan 50 mg tablet 50 mg PO DAILY #90 tabs 03/31/24 05/29/24 05/30/24 Rx fluoxetine 40 mg capsule 80 mg (2 x 40 mg) PO DAILY@0800 04/10/24 05/29/24 05/30/24 Rx #60 caps trazodone 100 mg tablet 100 mg PO .q hs PRN insomnia #30 04/10/24 05/29/24 05/30/24 Rx tabs pantoprazole 40 mg tablet,delayed 40 mg PO BID 12 weeks #168 tabs 05/15/24 05/29/24 05/30/24 Rx release (Protonix) divalproex 500 mg tablet,delayed 500 mg PO QAM 05/29/24 05/29/24 05/31/24 06:00 History release tolterodine 4 mg capsule,extended 4 mg PO DAILY 05/29/24 05/29/24 05/30/24 History release 24 hr (Detrol LA) Allergies Allergy/AdvReac Type Severity Reaction Status Date / Time acetaminophen [From Tylenol] Allergy ADR-Migrain Verified 05/29/24 10:47 e doxycycline Allergy Unknown Verified 05/29/24 10:47 gabapentin Allergy unknown Verified 05/29/24 10:47 ibuprofen Allergy ADR-Migrain Verified 05/29/24 10:47 e pregabalin [From Lyrica] Allergy unknown Verified 05/29/24 10:47 Sulfa (Sulfonamide Allergy Unknown Verified 05/29/24 10:47 Antibiotics) sulfamethoxazole Allergy ADR-Swelling Verified 05/29/24 10:47 [From Bactrim] of the Eye trimethoprim [From Bactrim] Allergy ADR-Swelling Verified 05/29/24 10:47 of the Eye Current Medications Generic Name Dose Route Start Last Admin Trade Name Joseluis PRN Reason Stop Dose Admin Sodium Chloride 500 mls @ 15 mls/hr 05/31/24 08:08 05/31/24 08:39 Sodium Chloride 0.9% IV 06/01/24 08:07 15 mls/hr .Q24H PRN Administration COLONOSCOPY FLUIDS PFSH Anesthesia Medical History (Updated 05/08/24 @ 13:29 by Teodoro Sharma DO) MDD (major depressive disorder), recurrent severe, without psychosis DARON on CPAP Psychiatric care Incomplete bladder emptying Urgency of urination Moderate episode of recurrent major depressive disorder Cystitis cystica Recurrent UTI Obstructive sleep apnea (adult) (pediatric) Nicotine dependence, cigarettes, with other nicotine-induced disorders Post-traumatic stress disorder, chronic Major depressive disorder, recurrent, mild Surgical History (Updated 05/08/24 @ 13:29 by Teodoro Sharma DO) Hx of colonoscopy [facility] H/O: hysterectomy H/O shoulder surgery S/P carpal tunnel release S/P appendectomy Rectovaginal fistula repaired June 2018 Family History Mother , 66 Cancer Hypertension Father , 62 Cancer lung CAD (coronary artery disease) Social History Smoking and tobacco/nicotine status: current every day tobacco/nicotine user cigarettes Packs smoked per day: 1 Years cigarettes smoked: 46 [ Other cigarette details: started at age 14 years] Second hand smoke exposure: Yes Alcohol intake: never Substance/Drug Use: never Lives independently: Yes Household members: none Marital status: Current occupational status: disabled Do you think of yourself as: Straight/Heterosexual Current gender identity: Female Data Anesthesia Cardiac Studies: Echocardiogram 10/29/23 Echocardiogram Ultrasound 07/26/19 Sestamibi Stress Test (Cardiology) 11/11/23 Holter Monitor 08/21/19
[2024-05-31] MEDS: albuterol 2.5 mg/3 mL Neb INHALATION (09:08)
[2024-05-31 09:09] VITALS: PULSE 71; RESP 18; O2SAT 94
--- NOTE | 2024-05-31 09:34 | W.PM.OPSUD ---
Surgery/Procedure H&P Update DATE OF PROCEDURE: May 31, 2024 DATE H&P PERFORMED: 05/08/24 H&P UPDATE INFORMATION: I have reviewed H&P completed within last 30 days, I have examined patient prior to procedure and No changes to prior documentation PREOP DIAGNOSIS: Screening colonoscopy PLANNED PROCEDURE: Operation Date: 05/31/24 09:15 Proposed Procedures p EGD Dilation W/ Balloon 32958, 86399, G0121, K22.89, K21.9, Z12.11, R13.0(Not Applicable) - DO ines Roberts Colonoscopy(Not Applicable) - Teodoro Sharma DO
[2024-05-31 10:18] VITALS: BP 131/80; PULSE 90; RESP 16; TEMP 36.4; O2SAT 97
[2024-05-31 10:31] VITALS: BP 107/88; PULSE 88; RESP 16; O2SAT 99
--- NOTE | 2024-05-31 10:56 | ANE.PACU2 ---
Inpatient post-anesthesia follow up: Airway intact: Yes Vital signs: Temperature 97.5 F Pulse Rate 88 Respiratory Rate 16 Blood Pressure 107/88 Pulse Oximetry 99 Oxygen Delivery Me thod Room Air Oxygen Flow Rate Fraction of Inspir ed Oxygen Hydration adequate: Yes Nausea and vomiting: No Pain level: 1 Mental status: Baseline
== END 2024-05-31 10:56 | disposition home or self-care (01) ==
PROVIDERS: PCP Family Medicine; Visit Provider Surgery
PROC: 0DJD8ZZ Inspection of Lower Intestinal Tract, Via Natural or Artificial Opening Endoscopic (ICD-10-PCS; CPT 45378; 2024-05-31 09:15)
DX: Z12.11 Encounter for screening for malignant neoplasm of colon (principal); K29.50 Unspecified chronic gastritis without bleeding; D12.2 Benign neoplasm of ascending colon; D12.3 Benign neoplasm of transverse colon; K57.30 Diverticulosis of large intestine without perforation or abscess without bleeding; K22.2 Esophageal obstruction; I10 Essential (primary) hypertension; G89.29 Other chronic pain; Z79.891 Long term (current) use of opiate analgesic; G47.33 Obstructive sleep apnea (adult) (pediatric); Z99.89 Dependence on other enabling machines and devices; F17.210 Nicotine dependence, cigarettes, uncomplicated
CPT/HCPCS: 43239; 43249; 45385; 88305; 88342; 94640; G0121; J2704; J7040; J7613

== ENCOUNTER 2024-06-01 06:18 | Day surgery (SDC) | payer MEDICARE, MEDICAID, SELFPAY ==
[2024-06-01] VITALS (9 sets, daily range): BP systolic 128–158; BP diastolic 72–100; PULSE 67–95; RESP 18–20; TEMP 36.1–36.3; O2SAT 92–97
[2024-06-01] MEDS: sodium chloride 0.9% 1,000 ML 30 ML IV (06:49)
--- NOTE | 2024-06-01 07:06 | W.PM.OPSUD ---
Surgery/Procedure H&P Update DATE OF PROCEDURE: June 01, 2024 DATE H&P PERFORMED: 05/08/24 H&P UPDATE INFORMATION: I have reviewed H&P completed within last 30 days, I have examined patient prior to procedure and No changes to prior documentation PLANNED PROCEDURE: Operation Date: 06/01/24 08:05 Proposed Procedures p excision of subcutaneous right axilla mass(Right) - Teodoro Sharma DO
--- NOTE | 2024-06-01 07:24 | ANES.PREANE2 ---
Pre-Anesthetic Assessment Height/Weight: Height 5 ft 3 in Weight 245 lb Pulse Resp Pulse Ox O2 Del Method 86 19 H 95 Room Air 06/01/24 06:41 06/01/24 06:41 06/01/24 06:41 06/01/24 06:41 Operation Date: 06/01/24 08:05 Proposed Procedures p excision of subcutaneous right axilla mass(Right) - Teodoro Sharma DO Last intake: Intake Last Liquid Date 05/31/24 Last Liquid Time 23:30 Last Solid Date 05/31/24 Last Solid Time 19:00 Social Tobacco and No alcohol Exam alert, oriented x 3, clear to auscultation bilaterally and regular rate & rhythm Airway Submandibular: within normal limits Cervical ROM: within normal limits Mallampati: Class II Comments: Comments: Edentulous Anesthetic Plan ASA status: 3 Anesthesia: General Other: Patient denies any issues with anesthesia, GI procedure yesterday under MAC without issues NPO since yesterday Current smoker, plan for DuoNeb Hypertension on losartan Chronic pain, on chronic morphine DARON on CPAP BMI 44 Plan for general anesthesia Medications/Allergies Home Medications Medication Instructions Recorded Confirmed Last Taken Type cholecalciferol (vitamin D3) 50 50 mcg PO DAILY@0800 02/05/20 05/31/24 05/30/24 History mcg (2,000 unit) tablet (Vitamin D3) omega 0-rka-wqg-fish oil 300 1 cap PO DAILY@0800 02/05/20 05/31/24 05/30/24 History mg-1,000 mg capsule (Fish Oil) albuterol sulfate 90 mcg/actuation 2 inh inhalation Q4H PRN shortness 04/26/23 05/31/24 05/30/24 Rx aerosol inhaler of breath or wheezing #8.5 grams albuterol sulfate 2.5 mg/3 mL 2.5 mg (3 mL) inhalation Q4H PRN 10/06/23 05/31/24 05/31/24 Rx (0.083 %) solution for nebulization shortness of breath or wheezing #360 mL alfuzosin 10 mg tablet,extended 10 mg PO DAILY 10/28/23 05/31/24 05/30/24 History release 24 hr (Uroxatral) levothyroxine 50 mcg tablet 50 mcg PO QAM 10/28/23 06/01/24 06/01/24 History apixaban 5 mg tablet (Eliquis) 5 mg PO Q12H #60 tabs 11/08/23 05/31/24 05/28/24 Rx morphine 15 mg tablet,extended 15 mg PO Q6H 01/17/24 05/31/24 05/31/24 06:00 History release losartan 50 mg tablet 50 mg PO DAILY #90 tabs 03/31/24 05/31/24 05/30/24 Rx fluoxetine 40 mg capsule 80 mg (2 x 40 mg) PO DAILY@0800 04/10/24 05/31/24 05/30/24 Rx #60 caps trazodone 100 mg tablet 100 mg PO .q hs PRN insomnia #30 04/10/24 06/01/24 06/01/24 Rx tabs pantoprazole 40 mg tablet,delayed 40 mg PO BID 12 weeks #168 tabs 05/15/24 05/31/24 05/30/24 Rx release (Protonix) divalproex 500 mg tablet,delayed 500 mg PO QAM 05/29/24 06/01/24 06/01/24 History release tolterodine 4 mg capsule,extended 4 mg PO DAILY 05/29/24 05/31/24 05/30/24 History release 24 hr (Detrol LA) Allergies Allergy/AdvReac Type Severity Reaction Status Date / Time acetaminophen [From Tylenol] Allergy ADR-Migrain Verified 05/29/24 10:47 e doxycycline Allergy Unknown Verified 05/29/24 10:47 gabapentin Allergy unknown Verified 05/29/24 10:47 ibuprofen Allergy ADR-Migrain Verified 05/29/24 10:47 e pregabalin [From Lyrica] Allergy unknown Verified 05/29/24 10:47 Sulfa (Sulfonamide Allergy Unknown Verified 05/29/24 10:47 Antibiotics) sulfamethoxazole Allergy ADR-Swelling Verified 05/29/24 10:47 [From Bactrim] of the Eye trimethoprim [From Bactrim] Allergy ADR-Swelling Verified 05/29/24 10:47 of the Eye Current Medications Generic Name Dose Route Start Last Admin Trade Name Freq PRN Reason Stop Dose Admin Sodium Chloride 1,000 mls @ 30 mls/hr 06/01/24 06:30 06/01/24 06:49 Sodium Chloride 0.9% IV 12/06/24 06:29 30 mls/hr .Q24H MARIE Administration PFSH Anesthesia Medical History (Updated 05/08/24 @ 13:29 by Teodoro Shrama DO) MDD (major depressive disorder), recurrent severe, without psychosis DARON on CPAP Psychiatric care Incomplete bladder emptying Urgency of urination Moderate episode of recurrent major depressive disorder Cystitis cystica Recurrent UTI Obstructive sleep apnea (adult) (pediatric) Nicotine dependence, cigarettes, with other nicotine-induced disorders Post-traumatic stress disorder, chronic Major depressive disorder, recurrent, mild Surgical History (Updated 05/08/24 @ 13:29 by Teodoro Sharma DO) Hx of colonoscopy [facility] H/O: hysterectomy H/O shoulder surgery S/P carpal tunnel release S/P appendectomy Rectovaginal fistula repaired June 2018 Family History Mother , 66 Cancer Hypertension Father , 62 Cancer lung CAD (coronary artery disease) Social History Smoking and tobacco/nicotine status: current every day tobacco/nicotine user cigarettes Packs smoked per day: 1 Years cigarettes smoked: 46 [ Other cigarette details: started at age 14 years] Second hand smoke exposure: Yes Alcohol intake: never Substance/Drug Use: never Lives independently: Yes Household members: none Marital status: Current occupational status: disabled Do you think of yourself as: Straight/Heterosexual Current gender identity: Female Data Anesthesia Cardiac Studies: Echocardiogram 10/29/23 Echocardiogram Ultrasound 07/26/19 Sestamibi Stress Test (Cardiology) 11/11/23 Holter Monitor 08/21/19
--- OUTSIDE RECORDS SUMMARY | 2024-06-01 07:30 | XMS_ITS | Patient Health Record ---
Author Name Unknown Organization [facility] Address [address] [place], [place] [address] Care Team Providers Care Loom Mechanic Name Role Phone Darell Orourke MD Primary Care Provider Unavailyelena Fernandez MD, Tj Unavailable [phone] Elena Salinas Unavailable [phone] Allergies Allergen (clinical drug ingredient) Drug/Non Drug Allergy documented on EMR Reaction Allergy Type Onset Date Status sulfamethoxazole / trimethoprim Bactrim Unknown Drug Allergy Active acetaminophen Tylenol rebound headaches Drug Allergy Active [place] headaches Drug Allergy Active ibuprofen rebound headaches Drug Allergy Active doxycycline doxycycline facial edema Drug Allergy Active duloxetine Cymbalta Unknown Drug Allergy Active pregabalin Lyrica generalized edema Drug Allergy Active Reason For Referral Reason Evaluation for possi ble interventional spine treatment Diagnosis 1 Cervicalgia (M54.2) Referral Organization [facility] [employer] Referring Provider First Name Tj Referring Provider Last Name Jim Referring Provider Speciality Pain Manag ement [facility] Referred Provider Specialty Neurological Surgery [...] once a day for 30 day(s) Active [place]-3 Active nystatin 098654 units/mL 4 mL orally 4 t imes [...] W/U Status Risk Notes Problem Solitary sacroiliitis (525184474) Sacroiliitis, not elsewhere classified (M46.1) Active confirmed Problem Low back pain (304426194) Low back pain (M54.5) Active confirmed Problem Lumbosacral spondylosis without myelopathy (31362407) Spondylosis without myelopathy or radiculopathy, lumbar region (M47.816) Active confirmed Problem High risk drug monitoring status (132932830) jail (current) use of opiate analgesic (Z79.891) Active confirmed Problem Anxiety disorder (687393622) Other specified anxiety disorders (F41.8) Active confirmed Problem Obstructive sleep apnea syndrome (31002717) Obstructive sleep apnea (adult) (pediatric) (G47.33) Active confirmed Problem Chronic pain (12661901) Other chronic pain (G89.29) Active confirmed Problem Acquired spondylolisthesis (660628661) Spondylolisthesi s, lumbar region (M43.16) Active confirmed Problem Cervicalgia (15813122) Cervicalgia (M54.2) Active confirmed Problem Myalgia (66522805) Myalgia (M79.1) Active confi rmed Problem Long-term current use of drug therapy (611509007) Other skilled nursing (current) drug therapy (Z79.899) Active confirmed Problem Pain in lumbar spine (525025088) Vertebrogenic low back pain (M54.51) Active confirmed Vital Signs Temperature 94.9 degrees Fahrenheit 05/03/2024 Blood pressure diastolic 80 mm Hg 05/03/2024 Oximetry 88 % 05/03/2024 Height 64 in 05/03/2024 Blood pressure systolic 109 mm Hg 05/03/2024 Weight 257.8 lbs 05/03/2024 BMI 44.25 kg/m2 05/03/2024 Encounters Encounter Location Date Provider Diagnosis [facility], [place] [place], [place] [id number] 09/01/2023 Elena Sahni Other chronic pain G89.29 ; Vertebrogenic low back pain M54.51 and Spondylosis without myelopathy or radiculopathy, lumbar region M47.816 [facility], [facility] [address] [place], [place] [id number] 10/27/2023 Elena Sahni Other chronic pain G89.29 ; Vertebrogenic low back pain M54.51 and Spondylosis without myelopathy or radiculopathy, lumbar region M47.816 [facility], [facility] [address] [place], [place] [id number] 12/22/2023 Elena Sahni Other chronic pain G89.29 ; Vertebrogenic low back pain M54.51 ; Spondylosis without myelopathy or radiculopathy, lumbar region M47.816 and Obstructive sleep apnea (adult) (pediatric) G47.33 [facility], [facility] [address] [place], [place] [id number] 03/01/2024 Elena Sahni Other chronic pain G89.29 ; Vertebrogenic low back pain M54.51 ; Spondylosis without myelopathy or radiculopathy, lumbar region M47.816 and Obstructive sleep apnea (adult) (pediatric) G47.33 [facility], [facility] [address] [place], [place] [id number] 04/20/2024 Tj Fernandez Other chronic pain G89.29 ; Vertebrogenic low back pain M54.51 and Obstructive sleep apnea (adult) (pediatric) G47.33 [facility], [facility] [address] [place], [place] [id number] 05/03/2024 Tj Fernandez Sacroiliitis, not elsewhere classified M46.1 ; Other specified anxiety disorders F41.8 ; Cervicalgia M54.2 ; Vertebrogenic low back pain M54.51 ; Other chronic pain G89.29 and Obstructive sleep apnea (adult) (pediatric) G47.33 [facility] [address] [place] [address] 05/29/2024 Tj Fernandez Sacroiliitis, not elsewhere classified M46.1 and Other specified anxiety disorders F41.8 [facility], [facility] [address] [place], [place] [id number] 01/03/2024 Tj Fernandez [facility], [facility] [address] [place], [place] [id number] 05/17/2024 Tj Fernandez Assessments Encounter Date Diagnosis (ICD Code) Assessment Notes Treatment Notes Treatment Clinical Notes Section Notes 10/27/2023 Other chronic pain (ICD-10 - G89.29) Patient reports that taking her pain medication allows her to complete her pompom maker. Plan to continue current medication management. 10/27/2023 [...] morphine has allowed her to complete her pompom maker. Plan to continue oral opioid medication management. [...] (ICD-10 - M54.2) Plan referral to a [facility] for evaluation and possible [...] morphine has allowed her to complete her pompom maker. Plan to continue oral opioid medication management. [...] Details Provider Name:Tj cagle, 06/12/2024 12:43:00 PM, [facility] [employer] [place], [place], [phone], Provider Name:Tj cagle, 07/05/2024 09:30:00 AM, [facility] [address] [place], [place], [id number], Insurance Providers Payer Name Payer Address Payer Phone Subscriber Number Group Number Insured Name Patient Relationship to Insured Coverage Start Date Coverage End Date [employer] PLAN [address] [place] [address] [id number] Jasmin Villalobos Self - patient is the insured [place] [address] [place] [id number] WilfredoJasmin diego Self - patient is the [...] performe d by Dr. Royal Irizarry at [facility] in [place], [place], 08/23/17 Repair of rectal fissure, performed at [facility] by Dr. Richard, 07/19/18 Multiple maxillary dental extractions, 0 10/2018 Hospitalization History Reason Date(Month/Year) Blood clot, lungs, treated at [facility], 11/26 Diverticulitis, 2014 Tick fever, 02/2008
--- OUTSIDE RECORDS SUMMARY | 2024-06-01 07:30 | XMS_ITS ---
Author Name Unknown Organization [facility] Address [address] [place], [place] [id number] Care Team Providers Care Acid Purification Equipment Operator Name Role Phone Darell Orourke MD Primary Care Provider UnavailTj Farias MD Unavailable [phone] Allergies Allergen (clinical drug ingredient) Drug/Non Drug Allergy documented on EMR Reaction Allergy Type Onset Date Status sulfamethoxazole / trimethoprim Bactrim Unknown Drug Allergy Active acetaminophen Tylenol rebound headaches Drug Allergy Active [place] headaches Drug Allergy Active ibuprofen rebound headaches Drug Allergy Active doxycycline doxycycline facial edema Drug Allergy Active duloxetine Cymbalta Unknown Drug Allergy Active pregabalin Lyrica generalized edema Drug Allergy Active Reason For Referral Reason Evaluation for possi ble interventional spine treatment Diagnosis 1 Cervicalgia (M54.2) Referral Organization [facility] Referring Provider First Name Tj Referring Provider Last Name Jim Referring Provider Speciality Pain Manag ement [facility] Referred Provider Specialty [...] intl units orally as directed Active nystatin 176516 units/mL 4 mL orally 4 t imes a day Active predniSONE 20 mg 1 tab(s) orally once a day for 7 day(s) 10/27/2023 Active pantoprazole 40 mg 1 tab(s) orally once a day for 30 day(s) Active oxyBUTYnin 5 mg 1 tab orally 3 times a day Active [place]-3 Active hydroCHLOROthiazide 25 mg 1 tab(s) orall [...] Status W/U Status Risk Notes Problem Cervicalgia (67617335) Cervicalgia (M54.2) Active confirmed Vital Signs Temperature 94.9 degrees Fahrenheit 05/03/20 24 Blood pressure systolic 109 mm Hg 05/03/20 24 Blood pressure diastolic 80 mm Hg 024 Height 64 in 05/03/2024 Weight 257.8 lbs 05/03/2024 Oximetry 88 % 05/03/2024 BMI 44.25 kg/m2 05/03/2024 Encounters Encounter Location Date Provider Diagnosis [facility], [address] [id number] 05/03/2024 Tj Fernandez Sacroiliitis, not elsewhere classified [...] (ICD-10 - M54.2) Plan referral to a [facility] for evaluation and possible interventional treatment. 05/03/2024 Vertebrogenic low back pain (ICD-10 - M54.51) Chronic axial lumbosacral spine pain. 05/03/2024 Other chronic pain (ICD-10 - G89.29) Patient reports that changing to morphine has allowed her to complete her master esthetician. Plan to continue oral opioid medication management. [...] for procedure. Cervicalgia Plan referral to a [facility] for evaluation and possible interventional treatment. Vertebrogenic low back pain Chronic axia l lumbosacral spine pain. Other chronic pain Patient reports that changing to morphine has allowed her to complete her master esthetician. Plan to continue oral opioid medication management. Obstructive sleep apnea (florence lt) (pediatric) Patient with history of untreated severe sleep apnea. Plan to continue to restrict opioid use in relation to sleep for safety concerns. Other Above prescriptions printed for patient to hand carry to their pharmacy. Referrals Referral Date Details 05/03/2024 05/03/2024, Evaluati on for possible interventional spine treatment, [facility] Next Appt Details Follow Up: Right SI joint st eroid injection., Reason: Provider Name:Tj Ulloa son, 06/12/2024 12:43:00 PM, [address], [place], [place], [id number], Provider Name:Tj Ulloa son, 07/05/2024 09:30:00 AM, [address] [employer] [facility], [place], [place], [id number], Progress Notes * Jasmin MCKENZIE KDOB:[birth year] (64 yo F)Acc No.[id number]:05/03/2024 Patient:?Jasmin MCKENZIE Provider:?Tj Fernandez :1960???Age:64 Y???Sex:Female D ate:05/03/2024 Address:[address] [place], [place] [phone] Pcp:Darell Orourke MD Subjective: * Chief Complaints: [...] therapy - interventional lumbar spine procedures at [facility] pain clinic and at a [place], [place] pain clinic (RFA with history of [...] well as occasional foot numbness with Topamax; Black Diamond (headaches); Maxalt; tramadol 50 mg; lidocaine 2% [...] surgery, performed by Dr. Royal Irizarry at [facility] in [place], [place], 08/23/17Repair of rectal fissure, performed at [facility] by Dr. Richard, 07/19/18Multiple maxillary dental extractions, 10/2018 * Hospitalization/Major Diagno stic Procedure:?Tick fever, 02/2008Diverticulitis, 2015Blood clot, lungs, treated at [facility], 11/27/23 * Family History:?Father: dece ased [...] 1 cap orally once a day nystatin 798312 units/mL suspension 4 mL orally 4 times a day [place]-3(omega-3 polyunsaturated fatty acids) oxyBUTYnin 5 mg tablet [...] cap orally once a day Taking nystatin 786727 units/mL suspension 4 mL orally 4 times a day Taking [place]-3(omega-3 polyunsaturated fatty acids) Taking oxyBUTYnin 5 mg [...] procedure.?? 3.?Cervicalgia? Notes: Plan referral to a [facility] for evaluation and possible interventional treatment.? Referral To:[facility]??Neurological Surgery ?Reason:Evaluation for possible interventional spine treatment 4.?Vertebrogenic low back pa in? Notes: Chronic axial lumbosacral spine pain.?? 5.?Other chronic pain? Notes: Patient reports that changing to morphine has allowed her to complete her master esthetician. Plan to continue oral opioid medication management.?? [...] joint st eroid injection. * Images: * LSTERER INSIDE Sign off status: Completed true * Provider:?Tj Fernandez Date:?05/03/20 Generated for Tatianai familia/Facharisse/eTransmitting on:?06/01/2024 07:30 AM UPHOLSTERER INSIDE History and Physical Notes * HPI (History [...] therapy - interventional lumbar spine procedures at [facility] pain clinic and at a [place] pain clinic (RFA with history of [...] well as occasional foot numbness with Topamax; Black Diamond (headaches); Maxalt; tramadol 50 mg; lidocaine 2% [...] Not josé miguel 05/03/2024 Tj Fernandez [facility] Neurological & Evaluation for possible interventional spine treatment
--- OUTSIDE RECORDS SUMMARY | 2024-06-01 07:30 | XMS_ITS ---
Author Name Unknown Organization [facility] Address [address] [place], [place] [address] Care Team Providers Care Mint Wafer Depositor Name Role Phone Darell Orourke MD Primary Care Provider Lena Fernandez MD, Tj Hood [phone] REASON FOR VISIT MRI CSP Encounters Encounter Location Date [facility] [address] [place], [place] [phone] 05/17/2024 Tj Fernandez Plan Of Treatment Next Appt Details Provider Name:Tj Ulloa son, 06/12/2024 12:43:00 PM, [facility] [employer] [place], [place], [id number], Provider Name:Tj Ulloa son, 07/05/2024 09:30:00 AM, [facility] [employer] [place], [place], [id number], Progress Notes * Jasmin MCKENZIE KDOB:[birth year] (64 yo F)Acc No.[id number]:05/17/2024 Patient:?Jasmin MCKENZIE :1960???Age:64 Y???Sex:Female Address:[address] [place] [address] [address], [place] [address] * true * Date:? 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
--- OUTSIDE RECORDS SUMMARY | 2024-06-01 07:30 | XMS_ITS ---
Author Name Unknown Organization [facility] [employer] Address [address] [place], [place] [phone] Care Team Providers Care Distribution Lineman Name Role Phone Darell Orourke MD Primary Care Provider Lena Fernandez MD, Tj Unavailable [phone] Allergies Allergen (clinical drug ingredient) Drug/Non Drug Allergy documented on EMR Reaction Allergy Type Onset Date Status sulfamethoxazole / trimethoprim Bactrim Unknown Drug Allergy Active acetaminophen Tylenol rebound headaches Drug Allergy Active [place] headaches Drug Allergy Active ibuprofen rebound headaches [...] a day for 7 day(s) 10/27/2023 Active [place]-3 Active nystatin 638540 units/mL 4 mL orally 4 t imes a day Active pantoprazole 40 mg 1 tab(s) orally once a day for 30 day(s) Active oxyBUTYnin 5 mg 1 tab orally 3 times a day Active Encounters Encounter Location Date Provider Diagnosis [facility] [address] [place] [address] 05/29/2024 Tj Fernandez Sacroiliitis, not elsewhere classified [...] son, 06/12/2024 12:43:00 PM, [address], [place], [place], [phone], Provider Name:Tj Ulloa son, 07/05/2024 09:30:00 AM, [address] [facility] [address] [facility] [address], [place], [place], [phone], Procedure Notes * Category Sub-Category Detail Notes [...] mg/ml of Depo-Medrol was then injected Location: [facility] Discharge: the patient was obse rved [...] Jasmin MCKENZIE KDOB:[birth year] (64 yo F)Acc No.[id number]:05/29/2024 Patient:?Jasmin MCKENZIE Provider:?Tj Ronalcharlotte :1960???Age:64 Y???Sex:Female D ate:05/29/2024 Address:[address] [place], [place] [phone] Pcp:Darell Orourke MD Subjective: * Chief Complaints: [...] 1 cap orally once a day nystatin 927377 units/mL suspension 4 mL orally 4 times a day [place]-3(omega-3 polyunsaturated fatty acids) oxyBUTYnin 5 mg tablet [...] cap orally once a day Taking nystatin 979583 units/mL suspension 4 mL orally 4 times a day Taking [place]-3(omega-3 polyunsaturated fatty acids) Taking oxyBUTYnin 5 mg [...] and the contrast flow was observed.?sacroiliac joint injection(s):?Location:?[facility].?Interview:?a pre-procedure evaluation was conducted in which [...] discharged with no untoward effects.? * Procedure Codes:?60061 (ASC) INTRA-ARTICULAR SACROILIAC JOINT INJECTION * Follow Up:?As arranged. * Images: * ESSOR [employer] E[employer]OMICS Sign off status: Completed true * Provider:?Tj Fernandez Date:?05/29/20 24 Generated for Camilla barbosa/Julia/Faustino on:?06/01/2024 07:29 AM PROFESSOR OF ECONOMICS History and Physical Notes * HPI (History [...]
[2024-06-01] MEDS: albuterol 2.5 mg/3 mL Neb INHALATION (07:36)
[2024-06-01] MEDS: ceFAZolin 2,000 mg SDV 2000 MG IVP (07:47)
[2024-06-01] MEDS: lidocaine-epi 2% PF 1:200,000 20 mL SDV 10 ML INJECTION (08:14)
--- NOTE | 2024-06-01 08:26 | PM.OP ---
Operative Report Date of procedure: June 01, 2024 Pre-op diagnosis: Subcutaneous mass right axilla Post-op diagnosis: same Procedure done: Excision of subcutaneous mass right axilla Implants: None Specimens removed/disposition: Skin ellipse with underlying subcutaneous mass right axilla Surgeon: Teodoro Sharma DO Anesthesia: General and Local Estimated blood loss (mL): 5 Complications: None apparent Brief History: This is a very pleasant 64-year-old female who presented to my office with a subcutaneous mass of her right axilla. A previously was infected and draining. This was treated with antibiotics and is now much smaller she desired excision. The risks and benefits were explained and documented Procedure: Patient is up in the op room placed on the OR table in the supine position. General endotracheal and ovation was achieved by the part of anesthesia. The right axilla was inspected prepped and draped in usual sterile fashion. Time was performed. All present were in agreement. 2% lidocaine with epinephrine was used to anesthetize the skin overlying the subcutaneous mass. A 15 blade scalpel was then used to make a 2 cm long elliptical incision over the subcutaneous mass. Electrocautery was used to dissect down through the dermis and subcutaneous tissue removing a cystic structure most consistent with an epithelial inclusion cyst. Hemostasis was achieved with electrocautery. Mass and ellipse measured 2 cm in greatest dimension. Wound was irrigated with water sterile. Dermis approximated with 3-0 Vicryl in an interrupted fashion. Skin was approximated with 4-0 Monocryl in an interrupted subcuticular fashion. Dermabond was applied. Patient tolerated procedure well.
--- NOTE | 2024-06-01 09:11 | ANE.PACU2 ---
Inpatient post-anesthesia follow up: Airway intact: Yes Vital signs: Temperature 97.3 F Pulse Rate 72 Respiratory Rate 18 Blood Pressure 128/100 Pulse Oximetry 94 Oxygen Delivery Me thod Room Air Oxygen Flow Rate 2 Fraction of Inspir ed Oxygen Hydration adequate: Yes Nausea and vomiting: No Pain level: 1 Mental status: Baseline
--- NOTE | 2024-06-01 09:32 | PC.NURSE ---
pt arrived back to phase 2 from pacu pt had been given pain medications in phase 1 for stated pain. pt complained of pain at a 10 in phase 2 pt had received a block in pre op prior to going to surgery. Anesthesia assessed the block and pt could not move his arm but had tingling feelings in the digits of the hand and could move them when requested. pt was given 50mg of tramadol which is was the attending Dr had ordered for him. pt stated pain was still a 10 and asked if there was something stronger that could be given pt was informed that at this time it was only what the had prescribed to the pt. Pt then stated my pain is a 3 I want to go home
== END 2024-06-01 10:15 | disposition home or self-care (01) ==
PROVIDERS: PCP Family Medicine; Visit Provider Surgery
PROC: (CPT 11402; principal; 2024-06-01 08:05)
DX: L72.0 Epidermal cyst (principal); F17.210 Nicotine dependence, cigarettes, uncomplicated; I10 Essential (primary) hypertension; G89.29 Other chronic pain; G47.33 Obstructive sleep apnea (adult) (pediatric)
CPT/HCPCS: 11402; 12031; 88307; J0690; J1100; J2371; J2405; J2704; J3010; J3490; J3535; J7030; J7613

== ENCOUNTER 2024-06-02 11:41 | Outpatient (CLI) | payer MEDICARE, MEDICAID, SELFPAY ==
--- NOTE | 2024-06-02 11:45 | MR_ITS ---
WS: [id number] MRI CERVICAL SPINE NONCONTRAST HISTORY: CERVICALGIA COMPARISON: 11/17/2018 Technique: Multiplanar, multisequence noncontrast imaging of the cervical spine. Normal cervical alignment with no compression fracture or significant disc space narrowing. Signal within the cervical cord is normal. Visualized posterior fossa is unremarkable. Craniocervical junction, C1 and C2 relationship, odontoid process and soft tissues are normal. C2-C3: Mild osteophytic ridging. Very minimal RIGHT foraminal stenosis. C3-C4: Mild annular disc bulging with small bilateral foraminal osteophytes. C4-C5: Mild annular disc bulging with osteophytic ridging. Mild bilateral facet joint arthritis. Mild bilateral foraminal stenosis. C5-C6: Very mild annular disc bulging with bilateral facet joint arthritis, LEFT greater than RIGHT. Small LEFT foraminal osteophytes. Mild LEFT foraminal stenosis. C6-C7: No significant stenosis. Mild bilateral facet arthritis. C7-T1: No stenosis. Paraspinal soft tissue are normal. MR/MR cervical spin wo con* [id number] IMPRESSION: 1. No high-grade central or foraminal stenosis. 2. Mild disc osteophyte disease as described above. Very similar to the prior study of 11/22/2018. Disc osteophyte contributing to mild foraminal stenosis as above. 3. Mild facet arthritis at C4-5 through C6-7.
== END 2024-06-02 11:42 | disposition home or self-care (01) ==
LOC: RAD 11:42
PROVIDERS: PCP Family Medicine; Visit Provider Nurse Practitioner
DX: M54.2 Cervicalgia (principal)
CPT/HCPCS: 72141

== ENCOUNTER → 2024-06-19 08:36 | Outpatient (BNVA) | payer MEDICARE, MEDICAID, SELFPAY | PROVIDERS: PCP Family Medicine; Visit Provider Surgery | DX: R03.0 Elevated blood-pressure reading, without diagnosis of hypertension (principal); K21.9 Gastro-esophageal reflux disease without esophagitis; D12.6 Benign neoplasm of colon, unspecified; L72.0 Epidermal cyst; K59.00 Constipation, unspecified | CPT/HCPCS: 99214 ==

== ENCOUNTER → 2024-08-03 11:28 | Outpatient (BNVA) | payer MEDICARE, MEDICAID, SELFPAY | PROVIDERS: PCP Family Medicine; Visit Provider Family Medicine | DX: M25.50 Pain in unspecified joint (principal); E03.9 Hypothyroidism, unspecified; R73.09 Other abnormal glucose; E55.9 Vitamin D deficiency, unspecified; Z51.81 Encounter for therapeutic drug level monitoring; K59.00 Constipation, unspecified; L72.0 Epidermal cyst; D12.6 Benign neoplasm of colon, unspecified; K21.9 Gastro-esophageal reflux disease without esophagitis; R22.9 Localized swelling, mass and lump, unspecified; L72.3 Sebaceous cyst; M54.12 Radiculopathy, cervical region; K76.89 Other specified diseases of liver; K22.89 Other specified disease of esophagus; F33.2 Major depressive disorder, recurrent severe without psychotic features; R79.89 Other specified abnormal findings of blood chemistry; I26.99 Other pulmonary embolism without acute cor pulmonale; J44.1 Chronic obstructive pulmonary disease with (acute) exacerbation; R21 Rash and other nonspecific skin eruption | CPT/HCPCS: 80053; 82306; 83036; 83735; 84439; 84443; 85025; 85651; 86038; 86141; 86431 ==

== ENCOUNTER 2024-08-24 15:05 | Outpatient (CLI) | payer MEDICARE, MEDICAID, SELFPAY ==
--- NOTE | 2024-08-24 15:12 | XR_ITS ---
WS: [id number] Lumbar spine, AP and lateral views, 08/24/2024 Clinical Data: Lumbar radiculopathy Comparison: Lumbar spine, 07/27/2017 Findings: No compression fractures seen. There is anterior subluxation of L5 on S1 of 0.3 cm. There is degenerative disc narrowing at L4-L5 and L5-S1. There are small anterior osteophytes at L4-L5. The transverse processes and SI joints are normal. There are cholecystectomy clips in the right upper quadrant. XR/XR lumbar spine 2-3V* [id number] Impression: 1. Anterior subluxation of L5 on S1 unchanged. 2. Degenerative disc narrowing at L4-L5 and L5-S1.
--- NOTE | 2024-08-24 15:12 | XR_ITS ---
WS: [email or web address] Pelvis, AP view, 08/24/2024 Clinical Data: Hip pain after fall Comparison: AP pelvis, 08/19/2022 Findings: No fractures or dislocations are seen. The SI joints and pubic symphysis are intact. The soft tissues are not remarkable. There is degenerative arthritis and disc narrowing of the lower lumbar vertebra. XR/XR pelvis 1-2V* [id number] Impression: Negative for pelvic or hip fracture.
--- NOTE | 2024-08-24 15:26 | XRR_ITS ---
PROCEDURE INFORMATION: Exam: XR Left Foot Exam date and time: 08/24/2024 3:44 PM Age: 64 years old Clinical indication: Hip and lower back pain that runs down both legs, general left foot pain TECHNIQUE: Imaging protocol: Radiologic exam of the left foot. Views: 3 or more views. COMPARISON: US soft tissue/extremity [id number] 03/26/2023 2:55 PM FINDINGS: Bones/joints: calcaneal bony spurring. There is no fracture or joint dislocation. Soft tissues: Normal. XR/XR foot LT min 3V* [id number] IMPRESSION: 1. Calcaneal bony spurring. 2. No fracture.
== END 2024-08-24 15:06 | disposition home or self-care (01) ==
LOC: RAD 15:08
PROVIDERS: PCP Family Medicine; Visit Provider Family Medicine
DX: R10.2 Pelvic and perineal pain (principal); M47.896 Other spondylosis, lumbar region; M77.32 Calcaneal spur, left foot; W19.XXXA Unspecified fall, initial encounter; S33.39XA Dislocation of other parts of lumbar spine and pelvis, initial encounter; M47.897 Other spondylosis, lumbosacral region; M25.78 Osteophyte, vertebrae; Z90.49 Acquired absence of other specified parts of digestive tract
CPT/HCPCS: 72100; 72170; 73630

== ENCOUNTER → 2024-09-07 13:05 | Outpatient (BNVA) | payer MEDICARE, MEDICAID, SELFPAY | PROVIDERS: PCP Family Medicine; Visit Provider Family Medicine | DX: R10.13 Epigastric pain (principal); R10.9 Unspecified abdominal pain; R25.2 Cramp and spasm; M54.12 Radiculopathy, cervical region | CPT/HCPCS: 80053; 82550; 83690; 85025 ==

== ENCOUNTER → 2024-09-21 11:08 | Outpatient (BNVA) | payer MEDICARE, MEDICAID, SELFPAY | PROVIDERS: PCP Family Medicine; Visit Provider Nurse Practitioner Family | DX: M54.12 Radiculopathy, cervical region (principal); F17.210 Nicotine dependence, cigarettes, uncomplicated | CPT/HCPCS: 99214 ==

== ENCOUNTER → 2024-09-29 11:11 | Outpatient (BNVA) | payer MEDICARE, OTHER, SELFPAY | PROVIDERS: PCP Family Medicine; Visit Provider Nurse Practitioner Family | DX: M79.18 Myalgia, other site (principal); M54.12 Radiculopathy, cervical region | CPT/HCPCS: 20553; 99214; J1010; J3490 ==

== ENCOUNTER → 2024-10-13 09:47 | Outpatient (BNVA) | payer MEDICARE, MEDICAID, SELFPAY | PROVIDERS: PCP Family Medicine; Visit Provider Nurse Practitioner Family | DX: M54.12 Radiculopathy, cervical region (principal); R03.0 Elevated blood-pressure reading, without diagnosis of hypertension | CPT/HCPCS: 99213 ==

== ENCOUNTER → 2024-12-25 11:21 | Outpatient (BNVA) | payer MEDICARE, MEDICAID, SELFPAY | PROVIDERS: PCP Family Medicine; Visit Provider Emergency Medicine | DX: M25.511 Pain in right shoulder (principal) | CPT/HCPCS: 73030 ==

== ENCOUNTER → 2025-01-04 10:54 | Outpatient (BNVA) | payer OTHER, MEDICAID, SELFPAY | PROVIDERS: PCP Family Medicine; Visit Provider Orthopaedic Surgery | DX: M25.511 Pain in right shoulder (principal); G89.29 Other chronic pain | CPT/HCPCS: 99204 ==

== ENCOUNTER 2025-01-17 11:31 | Outpatient (CLI) | payer OTHER, MEDICAID, SELFPAY ==
--- NOTE | 2025-01-17 11:45 | MRR_ITS ---
PROCEDURE INFORMATION: Exam: MR Right Upper Extremity Joint Without Contrast; Shoulder Exam date and time: 01/17/2025 11:59 AM Age: 64 years old Clinical indication: Pain; Shoulder; Right; Additional info: Right shoulder pain TECHNIQUE: Imaging protocol: Magnetic resonance imaging of the right upper extremity without contrast. Exam focused on the shoulder. COMPARISON: CR XR shoulder RT min 2V* [id number] 12/25/2024 11:24 AM FINDINGS: Bones/joints: There is marked hypertrophic change and edema at the AC joint. Bone marrow edema involves the distal aspect of the clavicle and acromion. There is superficial and undersurface spurring at the AC joint. Trace amount of joint fluid is present at the glenohumeral joint. There is a small amount of fluid within the subscapularis bursa. Trace amount of fluid within the subdeltoid bursa and subacromial space. Fluid within the subdeltoid bursa compatible with mild bursitis. Bone marrow signal is within normal limits. No fracture or suspicious bone lesion. Mild arthritic changes are present at the glenohumeral joint. Glenoid labrum: The labrum appears grossly intact. No detached or displaced labral tear. Supraspinatus tendon: Small partial tear involving the distal fibers of the supraspinatus tendon at the anterior insertion of the greater tuberosity. This extends along the undersurface. Small tear measures up to approximately 6 x 5 mm. Remainder of the supraspinatus tendon is mildly thickened and demonstrates mild heterogeneous increased signal intensity compatible with superimposed mild tendinopathy. Infraspinatus tendon: The infraspinatus tendon is intact. Mild thickening and heterogeneous increased signal intensity compatible with mild tendinopathy. Subscapularis tendon: The subscapularis tendon is intact. Teres minor tendon: Unremarkable. No evidence of tear. Tendon of biceps brachii: The biceps tendon appears intact and normally positioned within the bicipital groove. There is mild thickening and mild increased signal intensity within the proximal aspect of the biceps tendon compatible with mild biceps tendinopathy. No focal tear or gap within the tendon. No tendon retraction. Glenohumeral ligaments: Unremarkable. Soft tissues: Overlying deltoid musculature appears normal. Evaluation is limited by the large amount of overlying soft tissue and suboptimal signal. Lymph nodes: No axillary lymphadenopathy. MR/MR shoulder RT wo con* [id number] IMPRESSION: 1. Marked hypertrophic change and edema at the AC joint. The AC joint is normally aligned. There is mild surrounding edema. Superficial and undersurface spurring is present. Undersurface spurring narrows the subacromial space with potential to impinge on the underlying rotator cuff tendon. 2. Small partial tear involving the anterior fibers of the supraspinatus tendon at the insertion on the greater tuberosity. This measures up to approximately 6 x 5 mm. Remainder of the supraspinatus tendon is intact and demonstrates mild thickening and heterogeneous increased signal intensity compatible with superimposed mild tendinopathy. 3. Remainder of the superior rotator cuff tendons appear intact. The biceps tendon is intact. 4. Small amount of fluid within the subdeltoid bursa and subacromial space compatible with changes of mild bursitis.
== END 2025-01-17 11:32 | disposition home or self-care (01) ==
LOC: RAD 11:33
PROVIDERS: PCP Family Medicine; Visit Provider Orthopaedic Surgery
DX: M75.111 Incomplete rotator cuff tear or rupture of right shoulder, not specified as traumatic (principal); M75.51 Bursitis of right shoulder
CPT/HCPCS: 73221

== ENCOUNTER → 2025-01-25 15:22 | Outpatient (BNVA) | payer OTHER, SELFPAY | PROVIDERS: PCP Family Medicine; Visit Provider Orthopaedic Surgery | DX: M75.41 Impingement syndrome of right shoulder (principal); M25.311 Other instability, right shoulder; M75.111 Incomplete rotator cuff tear or rupture of right shoulder, not specified as traumatic; Z09 Encounter for follow-up examination after completed treatment for conditions other than malignant neoplasm | CPT/HCPCS: 99213 ==

== ENCOUNTER 2025-02-08 11:02 | Outpatient (CLI) | payer OTHER, MEDICAID, SELFPAY ==
[2025-02-08 12:09] LABS: Add Urine Microscopic? NO
[2025-02-08 12:13] LABS: Glucose Urine UA Negative (Normal); Nitrate Urine Negative (Negative); Specific Gravity, Urine 1.019 (1.005-1.030)
[2025-02-08 12:14] LABS: Hematocrit 40.2 % (36-47); Hemoglobin 13.10 g/dL (11.27-16.99); Mean Corpuscular HGB Conc 32.6 g/dL (30-55); Mean Corpuscular Hemoglobin 29.1 pg (27-33); Mean Corpuscular Volume 89.3 fl (85-98); Nucleated Red Blood Cells % 0 %; Platelet Count 233 10^3/cmm (157-399); Red Blood Count 4.50 10^6/uL (3.85-5.65); White Blood Count 6.79 10^3/uL (3.29-11.43)
[2025-02-08 12:32] LABS: Alanine Aminotransferase 19 U/L (0-33); Albumin Level 3.7 g/dL (3.5-5.2); Alkaline Phosphatase 76 U/L (35-105); Anion Gap 15.5 (5-19); Aspartate Amino Transferase 22 U/L (0-32); Blood Urea Nitrogen 14 mg/dL (8-23); Calcium 8.9 mg/dL (8.5-10.5); Carbon Dioxide 28 mmol/L (22-29); Chloride 99 mmol/L (98-107); Globulin 3.5 g/dL (1.3-4.6); Glucose 138 mg/dL (65-115); Osmolality Calculated 289 mOsm/kg (285-295); Potassium 4.5 mmol/L (3.5-5.1); Sodium 138 mmol/L (136-145); Total Protein 7.2 g/dL (6.6-8.7)
[2025-02-08 12:35] LABS: Estmated Average Glucose 134; Hemoglobin A1C 6.3 % (4.0-6.0)
[2025-02-08 12:54] LABS: Charge for UA Resulting for Rev
== END 2025-02-08 11:03 | disposition home or self-care (01) ==
PROVIDERS: PCP Family Medicine; Visit Provider Orthopaedic Surgery
DX: Z01.818 Encounter for other preprocedural examination (principal); R73.09 Other abnormal glucose
CPT/HCPCS: 36415; 80053; 81003; 83036; 85025

== ENCOUNTER → 2025-02-09 10:59 | Outpatient (BNVA) | payer OTHER, MEDICAID, SELFPAY | PROVIDERS: PCP Family Medicine; Visit Provider Family Medicine | DX: Z01.818 Encounter for other preprocedural examination (principal) | CPT/HCPCS: 93005 ==

== ENCOUNTER 2025-02-14 09:04 | Outpatient (CLI) | payer OTHER, MEDICAID, SELFPAY ==
--- NOTE | 2025-02-14 09:15 | FL_ITS ---
WS: [id number] Barium swallow and esophagram, 02/14/2025 Clinical Data: Difficulty swallowing Comparison: None. Fluoroscopy time: 1.4 minutes # of spot films: 7 Findings: The patient swallowed the thick and thin barium, and it flowed through the hypopharynx without hesitation. No stricture, mass, polyp or erosion was seen. No aspiration or penetration occurred The barium entered the esophagus and there was normal motility throughout. No hiatal hernia, reflux, stricture, polyp, mass, erosion or ulcer was noted. The barium passed normally into the stomach. FL/FL barium swallow [id number] Impression: Normal esophagram.
== END 2025-02-14 09:05 | disposition home or self-care (01) ==
LOC: RAD 09:06
PROVIDERS: PCP Family Medicine; Visit Provider Family Medicine
DX: R13.10 Dysphagia, unspecified (principal)
CPT/HCPCS: 74220

== ENCOUNTER 2025-02-21 15:20 | Observation (INO) | payer OTHER, MEDICAID, SELFPAY ==
[2025-02-21] VITALS (25 sets, daily range): BP systolic 99–170; BP diastolic 55–111; PULSE 76–95; RESP 16–31; TEMP 36.1–36.6; O2SAT 2–98; BMI 47.8
--- NOTE | 2025-02-21 10:33 | W.PM.OPSUD ---
Surgery/Procedure H&P Update DATE OF PROCEDURE: February 21, 2025 DATE H&P PERFORMED: 01/25/25 H&P UPDATE INFORMATION: I have reviewed H&P completed within last 30 days, I have examined patient prior to procedure and No changes to prior documentation PREOP DIAGNOSIS: Internal derangement right shoulder PLANNED PROCEDURE: Operation Date: 02/21/25 11:20 Proposed Procedures p Shoulder Arthroscopy(Right) - Raudel Alvarado MD s Bankart Lesion Repair(Right) - Raudel Alvarado MD s Subacromial Decompression(Right) - Raudel Alvarado MD
--- NOTE | 2025-02-21 10:39 | ANES.PREANE2 ---
Pre-Anesthetic Assessment Height/Weight: Height 5 ft 3 in Weight 270 lb Temp Pulse Resp BP Pulse Ox O2 Del Method 97.6 F 93 20 H 139/98 90 Room Air 02/21/25 09:50 02/21/25 09:50 02/21/25 09:50 02/21/25 09:50 02/21/25 09:50 02/21/25 09:50 Preop Diagnosis: Internal derangement right shoulder Operation Date: 02/21/25 11:20 Proposed Procedures p Shoulder Arthroscopy(Right) - Raudel Alvarado MD s Bankart Lesion Repair(Right) - Raudel Alvarado MD s Subacromial Decompression(Right) - Raudel Alvarado MD Was Beta Kai taken within 24 hours: N/A Was Clonidine taken within 24 hours: N/A Last intake: Intake Last Liquid Date 02/20/25 Last Liquid Time 22:00 Last Solid Date 02/20/25 Last Solid Time 22:00 Social Tobacco and No alcohol Exam alert, oriented x 3 and regular rate & rhythm Airway Submandibular: within normal limits Cervical ROM: within normal limits Mallampati: Class III Comments: Comments: Edentulous Anesthetic Plan ASA status: 4 Anesthesia: General Other: No prior issues with anesthesia NPO since yesterday evening Patient reportedly had a lung infection 2 weeks ago and completed antibiotics for this. SpO2 90% on RA in preop History of GERD, controlled with omeprazole Hypertension on losartan Current smoker DARON, no CPAP Recent labs 02/08/2025 reviewed acceptable for procedure EKG sinus rhythm with nonspecific T wave abnormality Extensive conversation had with patient and family that she is not a good candidate for a peripheral nerve block due to the concern of hitting phrenic nerve resulting in a paralyzed diaphragm. Plan for GETA with local via surgeon Medications/Allergies Home Medications ?Medication ?Instructions ?Recorded ?Confirmed ?Last Taken ?Type cholecalciferol (vitamin D3) 50 50 mcg PO DAILY@79902/05/20 02/20/25 02/18/25 08:00 History mcg (2,000 unit) tablet (Vitamin D3) omega 6-rot-nng-fish oil 300 1 cap PO DAILY@79902/05/20 02/20/25 05/30/24 History mg-1,000 mg capsule (Fish Oil) albuterol sulfate 90 mcg/actuation 2 inh inhalation Q4H PRN shortness 04/26/23 02/20/25 02/17/25 Rx aerosol inhaler of breath or wheezing #8.5 grams albuterol sulfate 2.5 mg/3 mL 2.5 mg (3 mL) inhalation Q4H PRN 10/06/23 02/20/25 02/17/25 Rx (0.083 %) solution for nebulization shortness of breath or wheezing #360 mL alfuzosin 10 mg tablet,extended 10 mg PO DAILY 10/28/23 02/20/25 02/21/25 08:00 History release 24 hr (Uroxatral) levothyroxine 50 mcg tablet 50 mcg PO QAM #90 tabs 06/01/24 02/20/25 02/21/25 08:00 Rx polyethylene glycol 3350 17 17 g PO DAILY 30 days #510 grams 06/19/24 02/20/25 Unknown Rx gram/dose oral powder (Miralax) apixaban 5 mg tablet (Eliquis) 5 mg PO Q12H #60 tabs 07/31/24 02/20/25 02/18/25 22:00 Rx omeprazole 40 mg capsule,delayed 40 mg PO DAILY #90 caps 08/24/24 02/20/25 Unknown Rx release miscellaneous medical supply 1 ea miscellaneous .prn 12/25/24 02/20/25 02/20/25 Rx subluxation right shoulder #1 ea fluoxetine 40 mg capsule 80 mg (2 x 40 mg) PO DAILY@0800 01/04/25 02/20/25 02/21/25 08:00 Rx #180 caps trazodone 100 mg tablet 100 mg PO .q hs PRN insomnia #90 01/04/25 02/20/25 02/20/25 22:00 Rx tabs losartan 50 mg tablet 50 mg PO DAILY #90 tabs 01/06/25 02/20/25 02/20/25 08:00 Rx morphine 15 mg tablet,extended 15 mg PO Q6H 28 days #112 tabs 01/24/25 02/20/25 02/20/25 22:00 Rx release cyclobenzaprine 10 mg tablet 10 mg PO QDAY 02/09/25 02/20/25 Unknown History divalproex 500 mg tablet,delayed 500 mg PO QAM 02/21/25 02/20/25 02/21/25 08:00 History release (Depakote) Allergies Allergy/AdvReac Type Severity Reaction Status Date / Time acetaminophen (From Tylenol) Allergy ADR-Migrain Verified 02/21/25 09:57 e doxycycline Allergy Unknown Verified 02/21/25 09:57 gabapentin Allergy unknown Verified 02/21/25 09:57 ibuprofen Allergy ADR-Migrain Verified 02/21/25 09:57 e pregabalin (From Lyrica) Allergy unknown Verified 02/21/25 09:57 Sulfa (Sulfonamide Allergy Unknown Verified 02/21/25 09:57 Antibiotics) sulfamethoxazole (From Allergy ADR-Swelling Verified 02/21/25 09:57 Bactrim) of the Eye trimethoprim (From Bactrim) Allergy ADR-Swelling Verified 02/21/25 09:57 of the Eye Current Medications Generic Name Dose Route Start Last Admin Trade Name Freq PRN Reason Stop Dose Admin Sodium Chloride 1,000 mls @ 30 mls/hr 02/21/25 10:00 02/21/25 10:26 Sodium Chloride 0.9% IV 02/22/25 09:59 30 mls/hr .Q24H MARIE Administration PFSH Anesthesia Medical History Dysphagia Tubular adenoma of colon MDD (major depressive disorder), recurrent severe, without psychosis DARON on CPAP Psychiatric care Incomplete bladder emptying Urgency of urination Moderate episode of recurrent major depressive disorder Cystitis cystica Recurrent UTI Obstructive sleep apnea (adult) (pediatric) Nicotine dependence, cigarettes, with other nicotine-induced disorders Post-traumatic stress disorder, chronic Major depressive disorder, recurrent, mild Surgical History Hx of excision of mass 06/01/24 Excision of subcutaneous mass right axilla- Dr Sharma Hx of colonoscopy [facility] H/O: hysterectomy H/O shoulder surgery S/P carpal tunnel release S/P appendectomy Rectovaginal fistula repaired June 2018 Family History Mother , 66 Cancer Stomach cancer Hypertension Father , 62 Cancer lung CAD (coronary artery disease) Social History Smoking and tobacco/nicotine status: never used tobacco/nicotine Second hand smoke exposure: Yes Alcohol intake: never Substance/Drug Use: never Lives independently: Yes Household members: none Marital status: Current occupational status: disabled Do you think of yourself as: Straight/Heterosexual Current gender identity: Female Data Anesthesia Cardiac Studies: Echocardiogram 10/29/23 Echocardiogram Ultrasound 07/26/19 Sestamibi Stress Test (Cardiology) 11/11/23 Holter Monitor 08/21/19
[2025-02-21] MEDS: ceFAZolin 2,000 mg SDV 3000 MG IVP (11:04)
[2025-02-21] MEDS: BUPivacaine 0.5% INJ 30 mL INJECTION (11:56)
--- NOTE | 2025-02-21 12:25 | PM.OP ---
Operative Report Date of procedure: February 21, 2025 Surgeon: Raudel Alvarado MD Procedure: Preoperative diagnosis: Internal derangement of the right shoulder with possible rotator cuff tear Postoperative diagnosis: Degenerative tearing the superior and anterior labrum, torn rotator cuff at the supraspinatus insertion. Acromial impingement. Adhesions of the subacromial space and thickened bursa Procedure: Diagnostic right shoulder arthroscopy with debridement of labrum and rotator cuff. Mini open acromioplasty lysis of adhesions, partial bursectomy, rotator cuff repair Surgeon: Raudel Alvarado MD Forest And Conservation Worker: TERI Nesbitt's assistance was necessary for positioning the patient, assisted during the procedure, wound closure, dressing placement and transfer the patient Anesthesia: General. Patient was not a candidate for scalene block secondary to respiratory issues and smoking history EBL 20 cc Indications: Juliana is a 65-year white female is been followed in the [facility] clinic for debilitating right shoulder pain. Subsequent MRI demonstrated small tear of the rotator cuff as well as impingement of the acromion. Also degenerative changes of the labrum. After failing all conservative measures patient was offered a diagnostic shoulder arthroscopy with all indicated procedures including a mini open rotator cuff repair and acromioplasty. All risk benefits treatment alternatives were discussed with her and she is agreeable to this at this time. Procedure: After obtaining her consent patient was taken to the operating room placed on the operative table supine position general anesthetic administered. Once good anesthesia was achieved patient was placed in beachchair position and padded out appropriately. She was secured to the bed. Right shoulder and arm were prepped and draped usual fashion. After surgical timeout standard portal was made with #11 blade to the posterior aspect of the shoulder and camera cannulas placed in the posterior glenohumeral joint line. Anterior working portal was also placed just inferior to the clavicle in the same line in the glenohumeral joint line. Evaluation of the shoulder joint itself found that there is fraying and tearing of the anterior labrum from approximately the about the 5 o'[address] position all the way up to about the 11 o'clock position. Biceps tendon was still adhered to the labrum and labrum was well attached to the glenoid. Labrum was debrided with mechanical shaver down to stable cartilaginous base from 11:00 down to the 5 o'clock position. Humerus was externally rotated and evaluation the insertion of the rotator cuff identified a tear within the supraspinatus tendon to the humeral head. Therefore at this time arthroscopy was abandoned. Anterior lateral approach was made to the shoulder with a sharp dissection taken on down directly over the anterior acromion and sharp dissection taken down to the subcutaneous tissue electrocautery used hemostasis. Electrocautery was used and used to remove the deltoid from the anterior chromium. Large acromial spur/hook was evident. Microsagittal saw was used to remove this and decompress the shoulder. Subacromial space had hypertrophic bursa and adhesions throughout. Bursa was sharply dissected out adhesions were broken up with digital sweeping over the rotator cuff with anteriorly and posteriorly. Palpating the area small tear in the supraspinatus tendon was identified just lateral to the bicipital groove. This is freshened with a #15 blade. A single 2.9 suture anchor was placed into the humerus but with good fixation. This was double arm and therefore 2 horizontal mattress sutures were used to repair the rotator cuff back down to its insertion. Once this was achieved shoulders washed with sterile irrigation. Deltoid reapproximated 0 Vicryl [id number] sutures. Subcutaneous layer approximated 2-0 Vicryl and upper sutures skin was closed with 3-0 Prolene. Wounds are clean and dry dressed Xeroform gauze sterile gauze dressing and adhesive surgical on dressing. Patient was placed abduction pillow and sling awakened transferred to cover room in stable condition. Should be noted that 30 cc of plain Marcaine were placed in the surgical site for postoperative pain management.
--- NOTE | 2025-02-21 13:46 | PC.NURSE ---
NC @ 4 liters Sats 90%
--- NOTE | 2025-02-21 13:58 | PC.NURSE ---
Dr Villalta monitor pt O2 sat as it declined to 84 on room air. Decision was made to admit pt to the hospital. Family at bedside. Put on 4 liters brougt O2 sat to 90 %
--- NOTE | 2025-02-21 15:37 | PC.NURSE ---
Dr. Alvarado assessed patient and informed her she would be admitted, due to hypoxia. Verified Dr. Edmund mcallister with vitals, as documented, to take pt to floor. Gave report to floor nurse, ANTONIETA Larson. ANTONIETA Larson and COLLECTIONS ASSISTANT at bedside with pt and family in room.
--- NOTE | 2025-02-21 15:58 | PC.NURSE ---
This nurse took report from ANTONIETA Bridges in PACU at 1515. This nurse assumed care of pt at 1530.
--- NOTE | 2025-02-21 16:00 | ANE.PACU2 ---
Inpatient post-anesthesia follow up: Airway intact: Yes Vital signs: Temperature 97.9 F Pulse Rate 76 Respiratory Rate 19 Blood Pressure 99/55 Pulse Oximetry 98 Oxygen Delivery Me thod Nasal Cannula Oxygen Flow Rate 4 Fraction of Inspir ed Oxygen Hydration adequate: Yes Nausea and vomiting: No Pain level: 1 Mental status: Baseline Additional Comments: Patient having difficulty maintaining SpO2 without O2. Discussion had with surgeon and decision was made to admit patient overnight
--- NOTE | 2025-02-21 16:47 | XRR_ITS ---
PROCEDURE INFORMATION: Exam: XR Chest Exam date and time: 02/21/2025 6:07 PM Age: 65 years old Clinical indication: Other: Post op hypoxia TECHNIQUE: Imaging protocol: Radiologic exam of the chest. Views: 1 view. COMPARISON: CT angio chest PE protcl [id number] 10/28/2023 5:34 AM FINDINGS: Lungs: Few scattered strands, nonspecific although commonly chronic. Otherwise Unremarkable. No consolidation. Pleural spaces: Unremarkable. No pleural effusion. No pneumothorax. Heart/Mediastinum: Unremarkable. No cardiomegaly. Bones/joints: Mild degenerative changes of the AC joints. Otherwise Unremarkable. XR/XR chest 1V portable [id number] IMPRESSION: No acute findings.
--- NOTE | 2025-02-21 17:59 | PM.CONSULT ---
Providers/Reason For Consult Consulting Physician/Specialty*: internal medicine Reason for Consult*: medical managment Requesting Physician: orthopedic Attending Physician: Raudel Alvarado MD Primary Care Provider: Darell Orourke MD History of Present Illness History of Present Illness Jasmin Villalobos is a 65 year old female s/p Diagnostic right shoulder arthroscopy with debridement of labrum and rotator cuff. Mini open acromioplasty lysis of adhesions, partial bursectomy, rotator cuff repair. EBL 20 cc. Postop patient was noted to have some hypoxemia. Patient is being monitored overnight. Patient does have history of sleep apnea. And is noted to be on albuterol at home. She does have history of COPD PE and a previous smoker. She does also have a CPAP ordered. Review of Systems General: Reports: 10 or more systems reviewed and unremarkable except in HPI and below Medications/Allergies Home Medications ?Medication ?Instructions ?Recorded ?Confirmed ?Last Taken ?Type cholecalciferol (vitamin D3) 50 50 mcg PO DAILY@0800 02/05/20 02/20/25 02/18/25 08:00 History mcg (2,000 unit) tablet (Vitamin D3) omega 4-jyt-qva-fish oil 300 1 cap PO DAILY@0800 02/05/20 02/20/25 05/30/24 History mg-1,000 mg capsule (Fish Oil) albuterol sulfate 90 mcg/actuation 2 inh inhalation Q4H PRN shortness 04/26/23 02/20/25 02/17/25 Rx aerosol inhaler of breath or wheezing #8.5 grams albuterol sulfate 2.5 mg/3 mL 2.5 mg (3 mL) inhalation Q4H PRN 10/06/23 02/20/25 02/17/25 Rx (0.083 %) solution for nebulization shortness of breath or wheezing #360 mL alfuzosin 10 mg tablet,extended 10 mg PO DAILY 10/28/23 02/20/25 02/21/25 08:00 History release 24 hr (Uroxatral) levothyroxine 50 mcg tablet 50 mcg PO QAM #90 tabs 06/01/24 02/20/25 02/21/25 08:00 Rx polyethylene glycol 3350 17 17 g PO DAILY 30 days #510 grams 06/19/24 02/20/25 Unknown Rx gram/dose oral powder (Miralax) apixaban 5 mg tablet (Eliquis) 5 mg PO Q12H #60 tabs 07/31/24 02/20/25 02/18/25 22:00 Rx omeprazole 40 mg capsule,delayed 40 mg PO DAILY #90 caps 08/24/24 02/20/25 Unknown Rx release miscellaneous medical supply 1 ea miscellaneous .prn 12/25/24 02/20/25 02/20/25 Rx subluxation right shoulder #1 ea fluoxetine 40 mg capsule 80 mg (2 x 40 mg) PO DAILY@0800 01/04/25 02/20/25 02/21/25 08:00 Rx #180 caps trazodone 100 mg tablet 100 mg PO .q hs PRN insomnia #90 01/04/25 02/20/25 02/20/25 22:00 Rx tabs losartan 50 mg tablet 50 mg PO DAILY #90 tabs 01/06/25 02/20/25 02/20/25 08:00 Rx morphine 15 mg tablet,extended 15 mg PO Q6H 28 days #112 tabs 01/24/25 02/20/25 02/20/25 22:00 Rx release cyclobenzaprine 10 mg tablet 10 mg PO QDAY 02/09/25 02/20/25 Unknown History divalproex 500 mg tablet,delayed 500 mg PO QAM 02/21/25 02/20/25 02/21/25 08:00 History release (Depakote) oxycodone 5 mg tablet 5 mg PO Q6H PRN pain #30 tabs 02/21/25 Unknown Rx Allergies Allergy/AdvReac Type Severity Reaction Status Date / Time acetaminophen (From Tylenol) Allergy ADR-Migrain Verified 02/21/25 09:57 e doxycycline Allergy Unknown Verified 02/21/25 09:57 gabapentin Allergy unknown Verified 02/21/25 09:57 ibuprofen Allergy ADR-Migrain Verified 02/21/25 09:57 e pregabalin (From Lyrica) Allergy unknown Verified 02/21/25 09:57 Sulfa (Sulfonamide Allergy Unknown Verified 02/21/25 09:57 Antibiotics) sulfamethoxazole (From Allergy ADR-Swelling Verified 02/21/25 09:57 Bactrim) of the Eye trimethoprim (From Bactrim) Allergy ADR-Swelling Verified 02/21/25 09:57 of the Eye PFSH Acute PFSH: Medical History Dysphagia Tubular adenoma of colon MDD (major depressive disorder), recurrent severe, without psychosis DARON on CPAP Psychiatric care Incomplete bladder emptying Urgency of urination Moderate episode of recurrent major depressive disorder Cystitis cystica Recurrent UTI Obstructive sleep apnea (adult) (pediatric) Nicotine dependence, cigarettes, with other nicotine-induced disorders Post-traumatic stress disorder, chronic Major depressive disorder, recurrent, mild Surgical History Hx of excision of mass 06/01/24 Excision of subcutaneous mass right axilla- Dr Sharma Hx [place] [facility] [place]: [place]rectomy H/O shoulder surgery S/P carpal tunnel release S/P appendectomy Rectovaginal fistula repaired June 2018 Family History Mother , 66 Cancer Stomach cancer Hypertension Father , 62 Cancer lung CAD (coronary artery disease) Social History Smoking and tobacco/nicotine status: never used tobacco/nicotine Second hand smoke exposure: Yes Alcohol intake: never Substance/Drug Use: never Lives independently: Yes Household members: none Marital status: Current occupational status: disabled Do you think of yourself as: Straight/Heterosexual Current gender identity: Female Vitals/I&O/Wt Last Vital Signs Temp 97.9 F 02/21/25 16:53 Pulse 76 02/21/25 16:53 Resp 19 H 02/21/25 16:53 BP 99/55 02/21/25 16:53 Pulse Ox 98 02/21/25 16:53 O2 Del Method Nasal Cannula 02/21/25 16:53 O2 Flow Rate 4 02/21/25 16:11 02/21/25 02/21/25 02/21/25 06:59 14:59 22:59 Intake Total 50 / 50 950 / 1000 Output Total 70 / 70 Balance -20 / -20 950 / 930 Weight last 48 hrs Weight 270 lb Physical Exam Narrative: General: NAD, resting comfortably HEENT: Normocephalic Lungs:CTA CVS:RRR, no murmur Abd: soft , NT MSK: right shoulder in immobilizer A&P Assessment and plan 1. Obstructive sleep apnea (adult) (pediatric): 2. COPD exacerbation: 3. Hypertension: 4. Adhesive capsulitis of both shoulders: Plan: 65 yo F s/p Diagnostic right shoulder arthroscopy with debridement of labrum and rotator cuff. Mini open acromioplasty lysis of adhesions, partial bursectomy, rotator cuff repair. post op noted to be on O2 --s/p Diagnostic right shoulder arthroscopy with debridement of labrum and rotator cuff. Mini open acromioplasty lysis of adhesions, partial bursectomy, rotator cuff repair --hypoxemia --DARON --COPD --hisory of PE Plan: 1. continuous pulse ox 2. check cxr 3. CPAP PRN /nigh 4. resume home inhalers 5. post op care per surgery and DVT prophylaxis PDMP PDMP Reviewed: Not Reviewed Coding Level of Care Code 73831 Diagnoses Obstructive sleep apnea (adult) (pediatric) G47.33 COPD exacerbation J44.1 Hypertension I10 Adhesive capsulitis of both shoulders M75.01; M75.02
[2025-02-21] MEDS: morphine 4 mg/mL SDV 1 mL 1 MG IVP (19:45)
[2025-02-21] MEDS: oxyCODONE-APAP 5-325 mg Tablet PO (21:04)
[2025-02-22 04:00] VITALS: BP 148/70; PULSE 80; RESP 16; TEMP 36.8; O2SAT 93
[2025-02-22 07:18] VITALS: BP 148/79; PULSE 71; RESP 18; TEMP 36.6; O2SAT 90
--- NOTE | 2025-02-22 10:42 | PM.PN ---
Subjective Subjective: Patient is Status postDiagnostic right shoulder arthroscopy with debridement of labrum and rotator cuff. Mini open acromioplasty lysis of adhesions, partial bursectomy, rotator cuff repair. Patient denies significant pain nausea vomiting diarrhea. She has noticed that she is wheezing today. She is a smoker and just quit since being hospitalized Vitals/I&O/Wt Last Vital Signs Temp 97.9 F 02/22/25 07:18 Pulse 71 02/22/25 07:18 Resp 18 02/22/25 07:18 BP 148/79 02/22/25 07:18 Pulse Ox 90 02/22/25 07:18 O2 Del Method Room Air 02/22/25 07:18 O2 Flow Rate 2 02/22/25 04:00 02/21/25 02/22/25 02/22/25 22:59 06:59 14:59 Intake Total 1190 / 1240 240 / 240 Output Total 400 / 470 Balance 790 / 770 240 / 240 Weight last 48 hrs Weight 131.088 kg Weight 122.47 kg Physical Exam Narrative: Patient is awake alert oriented she is morbidly obese Heart is regular normal S1-S2 without murmurs clicks gallops or rubs Lungs diminished throughout with a very mild expiratory wheeze. She is off oxygen and this morning at 7 AM on room air her O2 sat was 90% Abdomen obese soft nontender nondistended positive bowel sounds Extremities no clubbing cyanosis or edema A&P Assessment and plan 1. Nicotine dependence, cigarettes, with other nicotine-induced disorders: 2. Obstructive sleep apnea: 3. Morbid obesity: 4. DARON on CPAP: Plan: Patient is medically stable for discharge. She has normal vital signs O2 sat is 90%. I personally educated her on proper use of incentive spirometer and advised 10 deep breaths every hour while awake. I did explain to her she is at high risk for postoperative pneumonia without mobility discontinuation of smoking and use of incentive spirometer. Patient stated that it is likely she will not be able to continue smoking since she is right-handed and that arm is in a sling postoperatively PDMP PDMP Reviewed: Not Reviewed Attestations Medical Necessity Statement*: Per attending Coding Level of Care Code Acute Code for Chg Fwd Diagnoses Nicotine dependence, cigarettes, with other nicotine-induced disorders F17.218 Obstructive sleep apnea G47.33 Morbid obesity E66.01 DARON on CPAP G47.33
[2025-02-22 11:34] VITALS: BP 155/88; PULSE 87; RESP 19; TEMP 36.5; O2SAT 94
== END 2025-02-22 14:02 | disposition home or self-care (01) ==
LOC: MEDSURG 15:20
PROVIDERS: Admitting Provider Orthopaedic Surgery; PCP Family Medicine; Visit Provider Orthopaedic Surgery
PROC: (CPT 29805; principal; 2025-02-21 11:00)
PROC: (CPT 29806; 2025-02-21 11:00)
PROC: (CPT 29826; 2025-02-21 11:00)
PROC: (CPT 23412; 2025-02-21 11:00)
DX: M24.811 Other specific joint derangements of right shoulder, not elsewhere classified (principal); S43.431A Superior glenoid labrum lesion of right shoulder, initial encounter; X58.XXXA Exposure to other specified factors, initial encounter; M75.101 Unspecified rotator cuff tear or rupture of right shoulder, not specified as traumatic; M75.41 Impingement syndrome of right shoulder; M75.01 Adhesive capsulitis of right shoulder; G47.33 Obstructive sleep apnea (adult) (pediatric); Z99.89 Dependence on other enabling machines and devices; E66.01 Morbid (severe) obesity due to excess calories; Z68.43 Body mass index [BMI] 50.0-59.9, adult; F17.218 Nicotine dependence, cigarettes, with other nicotine-induced disorders; K21.9 Gastro-esophageal reflux disease without esophagitis; F33.9 Major depressive disorder, recurrent, unspecified; J44.1 Chronic obstructive pulmonary disease with (acute) exacerbation; F17.200 Nicotine dependence, unspecified, uncomplicated
CPT/HCPCS: 23412; 23130; 71045; 97161; 97167; C1713; G0378; J0690; J1100; J1885; J2270; J2405; J2704; J3010; J3490; J7030; J9999

== ENCOUNTER → 2025-03-13 13:43 | Outpatient (BNVA) | payer OTHER, MEDICAID, SELFPAY | PROVIDERS: PCP Family Medicine; Visit Provider Orthopaedic Surgery | DX: Z98.890 Other specified postprocedural states (principal) | CPT/HCPCS: 99024 ==

== ENCOUNTER 2025-04-05 09:50 | Outpatient (CLI) | payer OTHER, MEDICAID, SELFPAY ==
--- NOTE | 2025-04-05 10:00 | MM_ITS ---
WS: [id number] BILATERAL 3D TOMOSYNTHESIS DIGITAL DIAGNOSTIC MAMMOGRAPHY WITH CAD CLINICAL INFORMATION: Tender nodules in the bilateral axillary regions HISTORY: Patient directed RIGHT breast lump COMPARISON: 2023 TECHNIQUE: Bilateral CC, MLO, and ML views. FINDINGS: Scattered fibroglandular densities bilaterally. No suspicious abnormalities in the area of palpable concern. Ultrasound described below. ULTRASOUND BREAST RIGHT TECHNIQUE: Ultrasound right breast focused area of concern. CLINICAL INFORMATION: Tender nodules in the bilateral axillary regions COMPARISON: None. FINDINGS: No suspicious abnormalities in the area of palpable concern 9 o'clock position 10 cm from the nipple. No suspicious cystic or solid lesions. Findings are benign. Recommend return to annual screening mammography. MM/MM diag BI tomosynthesis [id number] IMPRESSION: DENSITY: There are scattered areas of fibroglandular density. BI-RADS: 1 - Negative. FOLLOW UP: 1 Year Follow-up Recommend return to annual screening mammography.
--- NOTE | 2025-04-05 10:05 | US_ITS ---
WS: [id number] BILATERAL 3D TOMOSYNTHESIS DIGITAL DIAGNOSTIC MAMMOGRAPHY WITH CAD CLINICAL INFORMATION: Tender nodules in the bilateral axillary regions HISTORY: Patient directed RIGHT breast lump COMPARISON: 2023 TECHNIQUE: Bilateral CC, MLO, and ML views. FINDINGS: Scattered fibroglandular densities bilaterally. No suspicious abnormalities in the area of palpable concern. Ultrasound described below. ULTRASOUND BREAST RIGHT TECHNIQUE: Ultrasound right breast focused area of concern. CLINICAL INFORMATION: Tender nodules in the bilateral axillary regions COMPARISON: None. FINDINGS: No suspicious abnormalities in the area of palpable concern 9 o'clock position 10 cm from the nipple. No suspicious cystic or solid lesions. Findings are benign. Recommend return to annual screening mammography. US/US breast RT limited* [id number] IMPRESSION: DENSITY: There are scattered areas of fibroglandular density. BI-RADS: 1 - Negative. FOLLOW UP: 1 Year Follow-up Recommend return to annual screening mammography.
== END 2025-04-05 09:51 | disposition home or self-care (01) ==
LOC: RAD 09:52
PROVIDERS: PCP Family Medicine; Visit Provider Family Medicine
DX: D24.1 Benign neoplasm of right breast (principal); R92.323 Mammographic fibroglandular density, bilateral breasts; R92.8 Other abnormal and inconclusive findings on diagnostic imaging of breast
CPT/HCPCS: 76642; 77062; G0279

== ENCOUNTER → 2025-04-20 11:43 | Outpatient (BNVA) | payer MEDICARE, MEDICAID, SELFPAY | PROVIDERS: PCP Family Medicine; Visit Provider Orthopaedic Surgery | DX: Z98.890 Other specified postprocedural states (principal) | CPT/HCPCS: 99213 ==

== ENCOUNTER 2025-05-23 17:35 | Emergency (ER) | payer MEDICARE, MEDICAID, SELFPAY ==
--- OUTSIDE RECORDS SUMMARY | 2025-05-23 17:42 | XMS_ITS | Encounter Summary ---
Author Organization [facility] Address [address] [place] [address] Care Team Providers Care Nylon Mender Name Role Phone Halima Pollard Primary Care Provider Encounter Details Date Type Department Care Team (Latest Contact Info) Description 08/10/2002 Outpatient Historical [facility] Operating Room [address] [place] [address] Issa Byrd MD NO ADDRESS ON FILE EXCESSIVE MENSTRUATION (Primary Dx) Social History Tobacco Use Types Packs/Day Years Used Date Smoking Tobacco: Never Assessed Comments Unknown Sex and Gender Information Value Date Recorded Sex Assigned at Not on file Legal Sex Female 3:46 AM VENUE ATTENDANT Gender Identity Not on file Sexual Orientation Not on file documented as of this encounter Plan of Treatment Not on file documented as of this encounter Visit Diagnoses Diagnosis Excessive or frequent menstruation- Primary documented in this encounter Care Teams Nylon Mender Relationship Specialty Start Date End Date Halima Pollard FNP [address] [place] [address] PCP - General Family Practice 11/04/09 documented as of this encounter
--- OUTSIDE RECORDS SUMMARY | 2025-05-23 17:42 | XMS_ITS | Encounter Summary ---
Author Organization [facility] Address [address] [place] [address] Care Team Providers Care Industrial Illuminating Engineer Name Role Phone Halima Pollard Primary Care Provider Encounter Details Date Type Department Care Team (Latest Contact Info) Description 08/04/2002 Outpatient Historical [facility] [id number] [place] [address] Issa Byrd MD NO ADDRESS ON FILE PREOP CARDIOVASC EXAM (Primary Dx) Social History Tobacco Use Types Packs/Day Years Used Date Smoking Tobacco: Never Assessed Comments Unknown Sex and Gender Information Value Date Recorded Sex Assigned at Not on file Legal Sex Female 3:46 AM MACHINE GRINDER Gender Identity Not on file Sexual Orientation Not on file documented as of this encounter Plan of Treatment Not on file documented as of this encounter Visit Diagnoses Diagnosis Pre-operative cardiovascular examination- Primary documented in this encounter Care Teams Industrial Illuminating Engineer Relationship Specialty Start Date End Date Halima Pollard FNP [address] [place] [address] PCP - General Family Practice 11/04/09 documented as of this encounter
--- OUTSIDE RECORDS SUMMARY | 2025-05-23 17:42 | XMS_ITS | Encounter Summary ---
Author Organization [employer] [facility] Address [address] [place] [address] Care Team Providers Care Checker Product Design Name Role Phone Halima Pollard Primary Care Provider Encounter Details Date Type Department Care Team (Latest Contact Info) Description 07/10/2002 Outpatient Historical [facility] MYSQL DEVELOPER [address] [place] [phone] Issa Byrd MD NO ADDRESS ON FILE SYMPTOMATIC FEMALE CLIMACTERIC STATE (Primary Dx); Excessive menstruation; FEMALE GENITAL SYMPTOMS NOS Social History Tobacco Use Types Packs/Day Years Used Date Smoking Tobacco: Never Assessed Comments Unknown Sex and Gender Information Value Date Recorded Sex Assigned at Not on file Legal Sex Female 3:46 AM REGISTERED SAFETY ENGINEER Gender Identity Not on file Sexual Orientation Not on file documented as of this encounter Plan of Treatment Not on file documented as of this encounter Visit Diagnoses Diagnosis Symptomatic menopausal or female climacteric states- Primary Excessive menstruation Excessive or frequent menstruation Unspecified symptom associated with female genital organs documented in this encounter Care Teams Checker Product Design Relationship Specialty Start Date End Date Halima Pollard FNP [address] [place], [place] [id number] PCP - General Family Practice 11/04/09 documented as of this encounter
--- OUTSIDE RECORDS SUMMARY | 2025-05-23 17:42 | XMS_ITS | Clinical Summary ---
Author Organization [facility] josé miguel [facility] Address [address] [place] [address] Care Team Providers Care Memorial Marker Designer Name Role Phone Halima Pollard Didi PIANO PROFESSOR Primary Care Provider Social History Tobacco Use Types Packs/Day Years Used Date Smoking Tobacco: Never Assessed Comments Unknown Sex and Gender Information Value Date Recorded Sex Assigned at Not on file Legal Sex Female 3:46 AM STATIONARY ENGINEER Gender Identity Not on file Sexual Orientation Not on file Plan of Treatment Health Maintenance Due Date Last Done Comments DTAP/TDAP/TD VACCINES (1 - Tdap) 1978 BREAST CANCER SCREENING 1999 COLORECTAL SCREENING 01/31/2004 Colorectal Cancer Screening 01/31/2004 FIT-DNA Q 3 years 01/31/2004 FIT/FOBT Q 1 year 01/31/2004 Flex Sig/CT Colonography Q 5 years 01/31/2004 PNEUMOCOCCAL VACCINE 50+ YEARS (1 of 1 - PCV) 01/31/20 09 ZOSTER VACCINE (1 of 2) 2009 OSTEOPOROSIS SCREENING 01/31/2024 INFLUENZA VACCINE (#1) 2025 RSV VACCINE (60+ or ) (1 - 1-dose 75+ series) 2034 Insurance MEDICARE PART A AND B MEDICAID [place] Care Teams Memorial Marker Designer Relationship Specialty Start Date End Date Halima Pollard FNP [facility] [place], [place] [id number] PCP - General Family Practice 11/04/09
--- OUTSIDE RECORDS SUMMARY | 2025-05-23 17:42 | XMS_ITS | Encounter Summary ---
Author Organization [email or web address] Address [address] [place] [address] Care Team Providers Care Synthetic Staple Extruder Name Role Phone Halima Pollard Primary Care Provider Encounter Details Date Type Department Care Team (Late st Contact Info) Description 07/10/2002 Outpatient Historical [facility] Issa Byrd MD NO ADDRESS ON FILE Social History Tobacco Use Types Packs/Day Years Used Date Smoking Tobacco: Never Assessed Comments Unknown Sex and Gender Information Value Date Recorded Sex Assigned at Not on file Legal Sex Female 3:46 AM COBBLER UPPER Gender Identity Not on file Sexual Orientation Not on file documented as of this encounter Plan of Treatment Not on file documented as of this encounter Visit Diagnoses Not on filedocumented in this encounter Care Teams Synthetic Staple Extruder Relationship Specialty Start Date End Date Halima Pollard FNP [address] [place], [place] [address] PCP - General Family Practice 11/04/09 documented as of this encounter
--- OUTSIDE RECORDS SUMMARY | 2025-05-23 17:42 | XMS_ITS | Encounter Summary ---
Author Organization [employer] [facility] Address [address] [place] [address] Care Team Providers Care Personalized Living Assistant Name Role Phone Halima Pollard Primary Care Provider Encounter Details Date Type Department Care Team (Latest Contact Info) Description 08/28/2002 Outpatient Historical [facility] [place] MANUFACTURING SET UP TECHNICIAN [address] [place] [phone] Issa Byrd MD NO ADDRESS ON FILE SURGERY FOLLOWUP, UNSPEC (Primary Dx) Social History Tobacco Use Types Packs/Day Years Used Date Smoking Tobacco: Never Assessed Comments Unknown Sex and Gender Information Value Date Recorded Sex Assigned at Not on file Legal Sex Female 3:46 AM ADOPTION COORDINATOR Gender Identity Not on file Sexual Orientation Not on file documented as of this encounter Plan of Treatment Not on file documented as of this encounter Visit Diagnoses Diagnosis Follow-up examination, following unspecified surgery- Primary documented in this encounter Care Teams Personalized Living Assistant Relationship Specialty Start Date End Date Halima Pollard FNP [address] [place] [address] PCP - General Family Practice 11/04/09 documented as of this encounter
--- OUTSIDE RECORDS SUMMARY | 2025-05-23 17:42 | XMS_ITS | Encounter Summary ---
Author Organization [facility] Address [address] [place] [address] Care Team Providers Care Twill Cutter Name Role Phone Halima Pollard Primary Care Provider Encounter Details Date Type Department Care Team (Late st Contact Info) Description 01/07/[address] [facility] Emergency Department [address] [place] [address] Darell Peck MD NO ADDRESS ON FILE ABDOMINAL PAIN UNSPEC SITE (Primary Dx) Social History Tobacco Use Types Packs/Day Years Used Date Smoking Tobacco: Never Assessed Comments Unknown Sex and Gender Information Value Date Recorded Sex Assigned at Not on file Legal Sex Female 3:46 AM GRAIN MERCHANDISER Gender Identity Not on file Sexual Orientation Not on file documented as of this encounter Plan of Treatment Not on file documented as of this encounter Visit Diagnoses Diagnosis Abdominal pain, unspecified site- Primary documented in this encounter Care Teams Twill Cutter Relationship Specialty Start Date End Date Halima Pollard FNP [address] [place] [address] PCP - General Family Practice 11/04/09 documented as of this encounter
--- OUTSIDE RECORDS SUMMARY | 2025-05-23 17:42 | XMS_ITS | Encounter Summary ---
Author Organization [email or web address] [facility] Address [address] [place] [address] Care Team Providers Care Senior Cyber Intelligence Analyst Name Role Phone Halima Pollard Primary Care Provider Encounter Details Date Type Department Care Team (Latest Contact Info) Description 08/10/2002 Outpatient Historical [facility] RUBBER TUBING BACKER [address] [place] [phone] Issa Byrd MD NO ADDRESS ON FILE Excessive menstruation (Primary Dx); FEMALE GENITAL SYMPTOMS NOS; DYSMENORRHEA; CHR BLOOD LOSS ANEMIA Social History Tobacco Use Types Packs/Day Years Used Date Smoking Tobacco: Never Assessed Comments Unknown Sex and Gender Information Value Date Recorded Sex Assigned at Not on file Legal Sex Female 3:46 AM SOLAR PROJECT COORDINATION SPECIALIST Gender Identity Not on file Sexual Orientation Not on file documented as of this encounter Plan of Treatment Not on file documented as of this encounter Visit Diagnoses Diagnosis Excessive menstruation- Primary Excessive or frequent menstruation Unspecified symptom associated with female genital organs Dysmenorrhea Iron deficiency anemia secondary to blood loss (chronic) documented in this encounter Care Teams Senior Cyber Intelligence Analyst Relationship Specialty Start Date End Date Halima Pollard FNP [address] [place] [address] PCP - General Family Practice 11/04/09 documented as of this encounter
--- OUTSIDE RECORDS SUMMARY | 2025-05-23 17:42 | XMS_ITS | Encounter Summary ---
Author Organization [employer] [facility] Address [address] [place] [address] Care Team Providers Care Printing Roller Polisher Name Role Phone Halima Pollard Primary Care Provider Encounter Details Date Type Department Care Team (Latest Contact Info) Description 08/04/2002 Outpatient Historical [facility] BRICK MAKER [address] [place] [phone] Issa Byrd MD NO ADDRESS ON FILE Excessive menstruation (Primary Dx); PREOP EXAM OTHER SPECIFIED Social History Tobacco Use Types Packs/Day Years Used Date Smoking Tobacco: Never Assessed Comments Unknown Sex and Gender Information Value Date Recorded Sex Assigned at Not on file Legal Sex Female 3:46 AM AN/SQQ 89(V)15 SONAR SYSTEM JOURNEYMAN Gender Identity Not on file Sexual Orientation Not on file documented as of this encounter Plan of Treatment Not on file documented as of this encounter Visit Diagnoses Diagnosis Excessive menstruation- Primary Excessive or frequent menstruation Other specified pre-operative examination documented in this encounter Care Teams Printing Roller Polisher Relationship Specialty Start Date End Date Halima Pollard FNP [address] [place] [address] PCP - General Family Practice 11/04/09 documented as of this encounter
--- OUTSIDE RECORDS SUMMARY | 2025-05-23 17:42 | XMS_ITS | Encounter Summary ---
Author Organization [employer] [facility] Address [address] [place] [address] Care Team Providers Care Manager Custom Name Role Phone Halima Pollard Primary Care Provider Encounter Details Date Type Department Care Team (Late st Contact Info) Description 01/08/2003 Outpatient Historical [facility] Issa Byrd MD NO ADDRESS ON FILE Social History Tobacco Use Types Packs/Day Years Used Date Smoking Tobacco: Never Assessed Comments Unknown Sex and Gender Information Value Date Recorded Sex Assigned at Not on file Legal Sex Female 3:46 AM DAY CARE ASSISTANT Gender Identity Not on file Sexual Orientation Not on file documented as of this encounter Plan of Treatment Not on file documented as of this encounter Visit Diagnoses Not on filedocumented in this encounter Care Teams Manager Custom Relationship Specialty Start Date End Date Halima Pollard FNP [address] [place], [place] [id number] PCP - General Family Practice 11/04/09 documented as of this encounter
--- OUTSIDE RECORDS SUMMARY | 2025-05-23 17:42 | XMS_ITS | Encounter Summary ---
Author Organization [employer] [facility] Address [address] [place] [address] Care Team Providers Care Hooker Inspector Name Role Phone Halima Pollard Primary Care Provider Encounter Details Date Type Department Care Team (Late st Contact Info) Description 01/25/2001 Outpatient Historical [facility] Itz Summers MD NO ADDRESS ON FILE Other and unspecified anterior pituitary hyperfunction (Primary Dx) Social History Tobacco Use Types Packs/Day Years Used Date Smoking Tobacco: Never Assessed Comments Unknown Sex and Gender Information Value Date Recorded Sex Assigned at Not on file Legal Sex Female 3:46 AM STEEL SHOT HEADER OPERATOR Gender Identity Not on file Sexual Orientation Not on file documented as of this encounter Plan of Treatment Not on file documented as of this encounter Visit Diagnoses Diagnosis Other and unspecified anterior pituitary hyperfunction- Primary documented in this encounter Care Teams Hooker Inspector Relationship Specialty Start Date End Date Halima Pollard FNP [address] [place] [address] PCP - General Family Practice 11/04/09 documented as of this encounter
--- OUTSIDE RECORDS SUMMARY | 2025-05-23 17:42 | XMS_ITS | Encounter Summary ---
Author Organization [facility] Address [address] [place] [address] Care Team Providers Care Wheelchair Van Driver Name Role Phone Halima Pollard Primary Care Provider Encounter Details Date Type Department Care Team (Latest Contact Info) Description 01/02/2005 Outpatient Historical [facility] Imaging Services [address] [place] [address] Jermaine Ayala MD NO ADDRESS ON FILE CHRONIC SINUSITIS NOS (Primary Dx) Social History Tobacco Use Types Packs/Day Years Used Date Smoking Tobacco: Never Assessed Comments Unknown Sex and Gender Information Value Date Recorded Sex Assigned at Not on file 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
--- OUTSIDE RECORDS SUMMARY | 2025-05-23 17:42 | XMS_ITS | Encounter Summary ---
Author Organization [facility] Address [address] [place] [address] Care Team Providers Care Dip Filler Name Role Phone Halima Pollard Primary Care Provider Encounter Details Date Type Department Care Team (Latest Contact Info) Description 01/02/2005 Outpatient Historical [facility] Ear, Nose and Throat 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
--- OUTSIDE RECORDS SUMMARY | 2025-05-23 17:42 | XMS_ITS | Encounter Summary ---
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
--- OUTSIDE RECORDS SUMMARY | 2025-05-23 17:42 | XMS_ITS | Encounter Summary ---
Author Organization [employer] [facility] Address [address] [place] [address] Care Team Providers Care Meeting Specialist Name Role Phone Halima Pollard Primary Care Provider Encounter Details Date Type Department Care Team (Latest Contact Info) Description 01/19/2005 Outpatient Historical [facility] [address] [facility] [address] [place] [address] Ida Castaneda MD [address] [facility] [address] [place] [address] HEADACHE (Primary Dx); CLASS MIGRAIN W/O MENTN INTRACTABLE Social History Tobacco Use Types Packs/Day Years Used Date Smoking Tobacco: Never Assessed Comments Unknown Sex and Gender Information Value Date Recorded Sex Assigned at Not on file 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
--- OUTSIDE RECORDS SUMMARY | 2025-05-23 17:42 | XMS_ITS | Encounter Summary ---
Author Organization [facility] Address [address] [place] [address] Care Team Providers Care Ferry Engineer Name Role Phone Halima Pollard Primary Care Provider Encounter Details Date Type Department Care Team (Latest Contact Info) Description 01/25/2001 Outpatient Historical [facility] Endocrinology-[facility] [address] [place] [address] Itz Summers MD NO ADDRESS ON FILE Other and unspecified anterior pituitary hyperfunction (Primary Dx); Galactorrhea not associated with childbirth Social History Tobacco Use Types Packs/Day Years Used Date Smoking Tobacco: Never Assessed Comments Unknown Sex and Gender Information Value Date Recorded Sex Assigned at Not on file 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
--- OUTSIDE RECORDS SUMMARY | 2025-05-23 17:42 | XMS_ITS | Encounter Summary ---
Author Organization [employer] [facility] Address [address] [place] [address] Care Team Providers Care Bookkeeping Clerk Name Role Phone Halima Pollard Primary Care Provider Encounter Details Date Type Department Care Team (Latest Contact Info) Description 02/20/2004 Outpatient Historical [facility] LOADING UNIT OPERATOR [address] [place] [phone] Issa Byrd MD NO ADDRESS ON FILE Gynecologic examination (Primary Dx) Social History Tobacco Use Types Packs/Day Years Used Date Smoking Tobacco: Never Assessed Comments Unknown Sex and Gender Information Value Date Recorded Sex Assigned at Not on file Legal Sex Female 3:46 AM RN LABOR DELIVERY Gender Identity Not on file Sexual Orientation Not on file documented as of this encounter Plan of Treatment Not on file documented as of this encounter Visit Diagnoses Diagnosis Gynecologic examination- Primary Gynecological examination documented in this encounter Care Teams Bookkeeping Clerk Relationship Specialty Start Date End Date Halima Pollard FNP [address] [place] [address] PCP - General Family Practice 11/04/09 documented as of this encounter
--- OUTSIDE RECORDS SUMMARY | 2025-05-23 17:43 | XMS_ITS | Encounter Summary ---
Author Organization [facility] Address [address] [place] [address] Care Team Providers Care Green House Manager Name Role Phone Halima Pollard Primary Care Provider Encounter Details Date Type Department Care Team (Latest Contact Info) Description 01/24/2003 Outpatient Historical [facility] Cardiovascular Services [address] [place] [address] Issa Byrd MD NO ADDRESS ON FILE VENOUS THROMBOSIS NEC (Primary Dx) Social History Tobacco Use Types Packs/Day Years Used Date Smoking Tobacco: Never Assessed Comments Unknown Sex and Gender Information Value Date Recorded Sex Assigned at Not on file 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
--- OUTSIDE RECORDS SUMMARY | 2025-05-23 17:43 | XMS_ITS | Encounter Summary ---
Author Organization [employer] [facility] Address [address] [place] [address] Care Team Providers Care Inspector Printed Circuit Boards Name Role Phone Halima Pollard Primary Care Provider Encounter Details Date Type Department Care Team (Late st Contact Info) Description 02/20/2004 Outpatient Historical [facility] FY06 Issa Byrd MD NO ADDRESS ON FILE Social History Tobacco Use Types Packs/Day Years Used Date Smoking Tobacco: Never Assessed Comments Unknown Sex and Gender Information Value Date Recorded Sex Assigned at Not on file Legal Sex Female 3:46 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
--- OUTSIDE RECORDS SUMMARY | 2025-05-23 17:43 | XMS_ITS | Encounter Summary ---
Author Organization [facility] Address [address] [place] [address] Care Team Providers Care Automation Machine Builder Name Role Phone Halima Pollard Primary Care Provider Encounter Details Date Type Department Care Team (Late st Contact Info) Description 02/08/[address] [facility] Rheumatology- [facility] [address] [place] [address] Andry Ruiz, DO [address] [facility] [address] [place] [address] MYALGIA AND MYOSITIS NOS (Primary Dx); RHEUMATISM NOS; Elevated sediment rate; IRON DEFIC ANEMIA NOS Social History Tobacco Use Types Packs/Day Years Used Date Smoking Tobacco: Never Assessed Comments Unknown Sex and Gender Information Value Date Recorded Sex Assigned at Not on file Legal Sex Female 3:46 AM FAMILY LIFE COUNSELOR Gender Identity Not on file Sexual Orientation Not on file documented as of this encounter Plan of Treatment Not on file documented as of this encounter Visit Diagnoses Diagnosis Myalgia and myositis, unspecified- Primary Mylagia and myositis, unspecified Rheumatism, unspecified and fibrositis Elevated sediment rate Elevated sedimentation rate Iron deficiency anemia, unspecified documented in this encounter Care Teams Automation Machine Builder Relationship Specialty Start Date End Date Halima Pollard FNP [address] [place] [address] PCP - General Family Practice 11/04/09 documented as of this encounter
--- OUTSIDE RECORDS SUMMARY | 2025-05-23 17:43 | XMS_ITS | Encounter Summary ---
Author Organization [employer] [facility] Address [address] [place] [address] Care Team Providers Care Vice President Client Services Name Role Phone Hlaima Pollard Primary Care Provider Encounter Details Date Type Department Care Team (Late st Contact Info) Description 01/18/2003 Inpatient Historical [facility] Issa Byrd MD NO ADDRESS ON FILE PREMENOPAUSE MENORRHAGIA (Primary Dx) Social History Tobacco Use Types Packs/Day Years Used Date Smoking Tobacco: Never Assessed Comments Unknown Sex and Gender Information Value Date Recorded Sex Assigned at Not on file Legal Sex Female 3:46 AM MANAGER ACCESS Gender Identity Not on file Sexual Orientation Not on file documented as of this encounter Plan of Treatment Not on file documented as of this encounter Visit Diagnoses Diagnosis Premenopausal menorrhagia- Primary documented in this encounter Care Teams Vice President Client Services Relationship Specialty Start Date End Date Halima Pollard FNP [address] [place] [address] PCP - General Family Practice 11/04/09 documented as of this encounter
--- OUTSIDE RECORDS SUMMARY | 2025-05-23 17:43 | XMS_ITS | Encounter Summary ---
Author Organization [employer] [facility] Address [address] [place] [address] Care Team Providers Care Liquor Establishment Manager Name Role Phone Halima Pollard Primary Care Provider Encounter Details Date Type Department Care Team (Latest Contact Info) Description 01/24/2003 Outpatient Historical [facility] ANALYZER SALES [address] [place] [phone] Issa Byrd MD NO ADDRESS ON FILE ATTEN-SURG DRESSNG/SUTUR (Primary Dx) Social History Tobacco Use Types Packs/Day Years Used Date Smoking Tobacco: Never Assessed Comments Unknown Sex and Gender Information Value Date Recorded Sex Assigned at Not on file Legal Sex Female 3:46 AM TAXI DRIVER Gender Identity Not on file Sexual Orientation Not on file documented as of this encounter Plan of Treatment Not on file documented as of this encounter Visit Diagnoses Diagnosis Attention to dressings and sutures- Primary documented in this encounter Care Teams Liquor Establishment Manager Relationship Specialty Start Date End Date Halima Pollard FNP [address] [place] [address] PCP - General Family Practice 11/04/09 documented as of this encounter
--- OUTSIDE RECORDS SUMMARY | 2025-05-23 17:43 | XMS_ITS | Encounter Summary ---
Author Organization [employer] [facility] Address [address] [place] [address] Care Team Providers Care Management Retail Intern Name Role Phone Halima Pollard Primary Care Provider Encounter Details Date Type Department Care Team (Latest Contact Info) Description 02/19/2003 Outpatient Historical [facility] STREETCAR DISPATCHER [address] [place] [address] Issa Byrd MD NO ADDRESS ON FILE SURGERY FOLLOWUP, UNSPEC (Primary Dx) Social History Tobacco Use Types Packs/Day Years Used Date Smoking Tobacco: Never Assessed Comments Unknown Sex and Gender Information Value Date Recorded Sex Assigned at Not on file Legal Sex Female 3:46 AM TWIST PACKER Gender Identity Not on file Sexual Orientation Not on file documented as of this encounter Plan of Treatment Not on file documented as of this encounter Visit Diagnoses Diagnosis Follow-up examination, following unspecified surgery- Primary documented in this encounter Care Teams Management Retail Intern Relationship Specialty Start Date End Date Halima Pollard FNP [address] [place] [address] PCP - General Family Practice 11/04/09 documented as of this encounter
--- OUTSIDE RECORDS SUMMARY | 2025-05-23 17:43 | XMS_ITS | Encounter Summary ---
Author Organization [facility] Address [address] [place] [address] Care Team Providers Care Green Promotions Specialist Name Role Phone Halima Pollard Primary Care Provider Encounter Details Date Type Department Care Team (Latest Contact Info) Description 01/08/2003 Outpatient [facility] Maternal and Medicine-[address] [address] Jermaine Beltran MD NO ADDRESS ON FILE FEMALE GENITAL SYMPTOMS NOS (Primary Dx) Social History Tobacco Use Types Packs/Day Years Used Date Smoking Tobacco: Never Assessed Comments Unknown Sex and Gender Information Value Date Recorded Sex Assigned at Not on file Legal Sex Female 3:46 AM 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
--- OUTSIDE RECORDS SUMMARY | 2025-05-23 17:43 | XMS_ITS | Encounter Summary ---
Author Organization [employer] [facility] Address [address] [place] [address] Care Team Providers Care Institutional Commodity Analyst Name Role Phone Halima Pollard Primary Care Provider Encounter Details Date Type Department Care Team (Latest Contact Info) Description 01/08/2003 Outpatient Historical [facility] CEMENT SIDE LASTER [address] [place] [phone] Issa Byrd MD NO ADDRESS ON FILE FEMALE GENITAL SYMPTOMS NOS (Primary Dx) Social History Tobacco Use Types Packs/Day Years Used Date Smoking Tobacco: Never Assessed Comments Unknown Sex and Gender Information Value Date Recorded Sex Assigned at Not on file Legal Sex Female 3:46 AM CLINICAL BIOCHEMIST Gender Identity Not on file Sexual Orientation Not on file documented as of this encounter Plan of Treatment Not on file documented as of this encounter Visit Diagnoses Diagnosis Unspecified symptom associated with female genital organs- Primary documented in this encounter Care Teams Institutional Commodity Analyst Relationship Specialty Start Date End Date Halima Pollard FNP [address] [place] [address] PCP - General Family Practice 11/04/09 documented as of this encounter
[2025-05-23 17:45] VITALS: BP 123/71; PULSE 81; TEMP 36.8; O2SAT 96
--- NOTE | 2025-05-23 18:48 | ED_ITS ---
HPI - Back Pain/Injury General: Chief Complaint: Back Pain/Injury Stated Complaint: Neck Pain Lower Back pain going down to hips Time Seen by Provider: 05/23/25 18:47 Source: patient Mode of arrival: ambulatory Limitations: no limitations History of Present Illness: Patient is a 65-year-old female with a history of chronic neck and back pain here complaining of discomfort. She states she used to follow-up with Dr. Albarado through pain management but for some reason is no longer with them. She does have a pain management referral to [facility]. She states she was taking chronic opioids for her pain including morphine but states she opted to get off of these medications and has been off for at least 6 weeks. She does not want to go back on opiate medications. She states she has occasionally taken Flexeril and Zanaflex but does not feel like these help. She has listed allergies of Tylenol and Ibuprofen. She states her pain currently is her baseline pain and she does not have any new complaints at this time. No acute neurologic deficits. MD elicited complaint: back pain Pertinent past history: prior back pain Onset (ago): year(s) Timing: constant Severity: severe Similar Symptoms Previously: Yes Location: lumbar spine and thoracic spine Exacerbating factors: movement and walking Relieving factors: none Associated symptoms: Deny abdominal pain, chills, difficulty walking, dysuria, fatigue or fever(s) Work related injury: No Related Data Home Medications ?Medication ?Instructions ?Recorded ?Confirmed cholecalciferol (vitamin D3) 50 50 mcg PO DAILY@0800 0 02/05/20 04/20/25 mcg (2,000 unit) tablet (Vitamin D3) omega 5-dwq-vfl-fish oil 300 1 cap PO DAILY@0800 02/0404/20/25 mg-1,000 mg capsule (Fish Oil) divalproex 500 mg tablet,delayed 500 mg PO QAM 5 04/20/25 release (Depakote) Previous Rx's ?Medication ?Instructions ?Recorded albuterol sulfate 90 mcg/actuation 2 inh inhalation Q4 H PRN shortness 04/26/23 aerosol inhaler of breath or wheezing #8.5 g boubacar albuterol sulfate 2.5 mg/3 mL 2.5 mg (3 mL) inhalation Q4H PRN 10/06/23 (0.083 %) solution for nebulization shortness of breat h or wheezing #360 mL levothyroxine 50 mcg tablet 50 mcg PO QAM #90 tabs 11/18 polyethylene glycol 3350 17 17 g PO DAILY 30 days #510 grams 06/19/24 gram/dose oral powder (Miralax) apixaban 5 mg tablet (Eliquis) 5 mg PO Q12H #60 tabs 0 07/31/24 omeprazole 40 mg capsule,delayed 40 mg PO DAILY #90 ca ps 08/24/24 release miscellaneous medical supply 1 ea miscellaneous .prn 0 12/25/24 subluxation right shoulder #1 ea losartan 50 mg tablet 50 mg PO DAILY #90 tabs 12/26 08/22 tolterodine 4 mg capsule,extended See Rx Instructions .Route 03/19/25 release 24 hr .COMPLEX #30 caps alfuzosin 10 mg tablet,extended 10 mg PO DAILY #30 tab s 04/06/25 release 24 hr (Uroxatral) fluoxetine 40 mg capsule 80 mg (2 x 40 mg) PO DAILY@0 800 04/16/25 #180 caps trazodone 100 mg tablet 100 mg PO .q hs PRN insomnia #90 04/16/25 tabs methocarbamol 500 mg tablet 1,000 mg (2 x 500 mg) PO Q 8H #30 05/23/25 tabs methylprednisolone 4 mg tablets in See Rx Instructions PO .COMPLEX 05/23/25 a dose pack (Medrol (Jm)) #21 ea Allergies Allergy/AdvReac Type Severity Reaction Status Date / Time acetaminophen (From Tylenol) Allergy ADR-Migrain Verified 05/23/25 17:49 e doxycycline Allergy Unknown Verified 05/23/25 17:49 gabapentin Allergy unknown Verified 05/23/25 17:49 ibuprofen Allergy ADR-Migrain Verified 05/23/25 17:49 e pregabalin (From Lyrica) Allergy unknown Verified 05/23/25 17:49 Sulfa (Sulfonamide Allergy Unknown Verified 05/23/25 17:49 Antibiotics) sulfamethoxazole (From Allergy ADR-Swelling Verified 05/23/25 17:49 Bactrim) of the Eye trimethoprim (From Bactrim) Allergy ADR-Swelling Verified 05/23/25 17:49 of the Eye Review of Systems Const: Denies: fever(s), chills, body aches, fatigue or malaise Card: Denies: chest pain Resp: Denies: dyspnea GI: Denies: abdominal pain : Denies: flank pain or dysuria Musc: Reports: neck pain (chronic) and back pain (chronic); Denies: extremity pain, extremity swelling, joint pain, joint swelling or joint redness Skin/Breast: Denies: rash Neuro: Denies: headache(s), numbness in extremities, weakness in extremities, sensory changes or difficulty walking PFSH ED PFSH: Medical History Dysphagia Tubular adenoma of colon MDD (major depressive disorder), recurrent severe, without psychosis DARON on CPAP Psychiatric care Incomplete bladder emptying Urgency of urination Moderate episode of recurrent major depressive disorder Cystitis cystica Recurrent UTI Obstructive sleep apnea (adult) (pediatric) Nicotine dependence, cigarettes, with other nicotine-induced disorders Post-traumatic stress disorder, chronic Major depressive disorder, recurrent, mild Surgical History S/P arthroscopy of shoulder Date of surgery: February 21, 2025. Procedure: Diagnostic right shoulder arthroscopy with debridement of the labrum and rotator cuff. Mini open rotator cuff repair with acromioplasty, lysis of lesions and partial bursectomy. Surgeon: Dr. Raudel Alvarado MD Hx of excision of mass 06/01/24 Excision of subcutaneous mass right axilla- Dr Sharma Hx of colonoscopy [facility] H/O: hysterectomy H/O shoulder surgery Right shoulder surgery - 02/2025 S/P carpal tunnel release S/P appendectomy Rectovaginal fistula repaired June 2018 Family History Mother , 66 Cancer Stomach cancer Hypertension Father , 62 Cancer lung CAD (coronary artery disease) Social History Smoking and tobacco/nicotine status: current every day tobacco/nicotine user cigarettes Packs smoked per day: 1 Years cigarettes smoked: 46 [ Other cigarette details: started at age 14 years] Second hand smoke exposure: Yes Alcohol intake: never Substance/Drug Use: never Lives independently: Yes Household members: none Marital status: Current occupational status: disabled Do you think of yourself as: Straight/Heterosexual Current gender identity: Female Physical Exam Const: COMMON NORMALS: no acute distress, patient oriented x3, no limitations and alert GENERAL APPEARANCE: cooperative NUTRITIONAL APPEARANCE: obese morbidly obese ORIENTATION/CONSCIOUSNESS: Yes awake, Yes oriented to person, Yes oriented to place and Yes oriented to time Neck/C-Spine: COMMON NORMALS: full ROM CERVICAL SPINE: Yes cervical ROM normal, Yes Cervical spine tenderness and Yes Paracervical muscle tenderness Resp: COMMON NORMALS: normal respiratory effort and clear to auscultation bilaterally AUSCULTATION: clear to auscultation bilaterally Cardio: COMMON NORMALS: regular rate and regular rhythm RATE: regular rate RHYTHM: regular rhythm : COMMON NORMALS: Yes no CVA tenderness BLADDER/KIDNEY EXAM: Yes no CVA tenderness Back/Pelvis: COMMON NORMALS: no CVA tenderness THORACIC SPINE/UPPER BACK: No thoracic spinal tenderness LUMBAR SPINE/LOWER BACK: Yes lumbar spinal tend erness PELVIS: No sciatic notch tenderness SACROILIAC JOINTS: Yes SI joints normal SACRUM: no tenderness COCCYX: no tenderness Extremity: COMMON NORMALS: capillary refill normal, no clubbing, cyanosis or edema, no calf tenderness and no pedal edema GENERAL: Yes normal exam except as noted Neuro: COMMON NORMALS: patient oriented x3, moves all extremities, no focal motor deficits, no sensory deficits noted and gait normal SENSORIUM/ORIENTATION: Yes alert, Yes oriented to person, Yes oriented to place and Yes oriented to time Course Vital Signs: Vital signs: Vital Signs Temperature 98.3 F 05/23/25 17:45 Pulse Rate 81 05/23/25 17:45 Blood Pressure 118/83 05/23/25 19:09 Pulse Oximetry 96 05/23/25 17:45 Oxygen Delivery Me thod Room Air 05/23/25 17:45 MDM - Back Pain/Injury Medical Decision Making Patient here for chronic neck and back pain. She has weaned herself off of all opiates. She has listed allergies to Tylenol and Ibuprofen. She has been taking Flexeril and Zanaflex but does not feel like these are helping. I am not sure what offer her from an emergency standpoint. I do not feel like she needs emergent imaging. Discussed placing her on a steroid taper. Potentially switching her to a different muscle relaxer which she is agreeable to. Plan for her to follow-up with primary care or new pain management in [place] as she has already been referred here. Differential Diagnosis Likely lumbar radiculopathy, sciatica, strain of lumbar region and thoracic back pain Medical Records I reviewed the patient's medical records. No radiology studies performed this visit Discharge Plan Discharge Patient Disposition: Home Clinical Impression: Chronic back pain Qualifiers: Back pain location: low back pain Back pain laterality: midline Sciatica presence: without sciatica Qualified Code(s): M54.50 - Low back pain, unspecified Condition: Stable Prescriptions: New methocarbamol 500 mg tablet 1,000 mg PO Q8H Qty: 30 0RF methylprednisolone [Medrol (Jm)] 4 mg tablets,dose pack See Rx Instructions .ROUTE .COMPLEX Qty: 21 0RF Rx Instructions: orally per package directions Discontinued cyclobenzaprine 10 mg tablet 10 mg PO QDAY No Action albuterol sulfate 2.5 mg /3 mL (0.083 %) solution for nebulization 2.5 mg inhalation Q4H PRN (Reason: shortness of breath or wheezing) Qty: 360 3RF polyethylene glycol 3350 [Miralax] 17 gram/dose powder 17 g PO DAILY 30 Days Qty: 510 12RF Eliquis 5 mg tablet 5 mg PO Q12H Qty: 60 6RF tolterodine 4 mg capsule,extended release 24hr See Rx Instructions .ROUTE .COMPLEX Qty: 30 11RF Dose Instruction: TAKE 1 CAPSULE BY MOUTH DAILY Rx Instructions: TAKE 1 CAPSULE BY MOUTH DAILY omeprazole 40 mg capsule,delayed release(DR/EC) 40 mg PO DAILY Qty: 90 3RF miscellaneous medical supply Mis 1 ea miscellaneous .prn Qty: 1 0RF Rx Instructions: sling to right arm trazodone 100 mg tablet 100 mg PO .q hs PRN (Reason: insomnia) Qty: 90 0RF Rx Instructions: Take 1/2 to one tablet at bedtime, if needed for insomnia fluoxetine 40 mg capsule 80 mg PO DAILY@0800 Qty: 180 0RF Rx Instructions: Take two capsules by mouth every morning albuterol sulfate 90 mcg/actuation HFA aerosol inhaler 2 inh inhalation Q4H PRN (Reason: shortness of breath or wheezing) Qty: 8.5 6RF levothyroxine 50 mcg tablet 50 mcg PO QAM Qty: 90 3RF Rx Instructions: 30 MINUTES PRIOR TO BREAKFAST. TAKE WITH WATER ONLY. losartan 50 mg tablet 50 mg PO DAILY Qty: 90 2RF alfuzosin [Uroxatral] 10 mg tablet extended release 24 hr 10 mg PO DAILY Qty: 30 3RF cholecalciferol (vitamin D3) [Vitamin D3] 50 mcg (2,000 unit) Tablet 50 mcg PO DAILY@0800 omega 8-ksv-yrf-fish oil [Fish Oil] 300-1,000 mg Capsule 1 cap PO DAILY@0800 divalproex [Depakote] 500 mg tablet,delayed release (DR/EC) 500 mg PO QAM Rx Instructions: TAKE 1 TABLET BY MOUTH EVERY DAY AT 8AM Discharge Orders: Discharge ED (Routine); Ordered 05/23/25 Ordered By: Debra Leon Referrals: Darell Orourke MD [Primary Care Provider, Family Practice] Patient Instructions: Patient Portal & Dennis Instructions Activity Restrictions/Additional Instructions: As we discussed, continue plan to follow-up with primary care for further evaluation and treatment of your chronic back pain. We will have you discontinue your Flexeril as well as your Zanaflex (I did not see this medication listed on your chart) and we will start you on a new muscle relaxer, Robaxin. We will place you on a steroid taper. Continue plan to abstain from opiates. Print Language: Turkmen Coding Level of Care Code ED Oyster Shipper for Susan Sanz
[2025-05-23 19:09] VITALS: BP 118/83
== END 2025-05-23 19:22 | disposition home or self-care (01) ==
PROVIDERS: Emergency Provider Physician Assistant; PCP Family Medicine
DX: M54.50 Low back pain, unspecified (principal); G89.29 Other chronic pain; Z79.01 Long term (current) use of anticoagulants; F17.210 Nicotine dependence, cigarettes, uncomplicated
CPT/HCPCS: 96372; 99284; J1100; J1885

== ENCOUNTER → 2025-06-12 16:06 | Outpatient (BNVA) | payer MEDICARE, MEDICAID, SELFPAY | PROVIDERS: PCP Family Medicine; Visit Provider Family Medicine | DX: R30.0 Dysuria (principal); N39.0 Urinary tract infection, site not specified | CPT/HCPCS: 81000; 87086 ==